=== PATIENT | male | born 1995 | race Caucasian/White ===

== ENCOUNTER 2021-10-31 12:34 | Outpatient (CLI) | payer OTHER, SELFPAY ==
[2021-10-31 13:41] LABS: Anion Gap 7 mmol/L (8-16); Blood Urea Nitrogen 12 mg/dL (9-20); Calcium 9.9 mg/dL (8.4-10.2); Carbon Dioxide 29 mmol/L (22-30); Chloride 104 mmol/L (98-107); Estimated Glomerular Filt Rate > 60; Glucose 91 mg/dL (65-110); Magnesium 2.1 mg/dL (1.6-2.3); Potassium 4.2 mmol/L (3.4-5.0); Sodium 140 mmol/L (137-145)
== END 2021-10-31 12:35 | disposition home or self-care (01) ==
PROVIDERS: Visit Provider Internal Medicine Cardiovascular Disease
DX: R07.89 Other chest pain (principal); R00.2 Palpitations; F41.9 Anxiety disorder, unspecified
CPT/HCPCS: 36415; 80048; 83735; 84439; 84443

== ENCOUNTER 2025-02-21 11:25 | Emergency (ER) | payer BC, OTHER, SELFPAY ==
--- NOTE | ~2025-02-21 | XR_ITS ---
HISTORY: pain COMPARISON: None TECHNIQUE: 2 views of the RIGHT great toe were performed. FINDINGS: Acute, partially comminuted fracture of the proximal margin of the distal phalanx of the right great toe are identified, with the fracture line extending into the articular surface on the lateral margin . Joint spaces are otherwise preserved and alignment is maintained. Soft tissue swelling, without radiopaque foreign body or significant calcification. Age-appropriate mineralization. IMPRESSION: Acute partially comminuted fracture of the proximal margin of the distal phalanx of the right great toe with extension into the articular surface along the lateral margin. Reviewed, dictated and finalized at location A.
--- OUTSIDE RECORDS SUMMARY | 2025-02-21 11:28 | XMS_ITS | Referral Summary ---
Author Organization [facility] Address [address] [place] [id number] Care Team Providers Care Computed Tomography Technologist Name Role Phone Javier Flynn MD Primary Care Provider +1- [phone] Encounters Date Type Department Care Team Description 02/17/2025 1:29 PM CDT - 02/17/2025 11:59 PM CDT Hospital Encounter [facility] Radiology at [facility] [address] [place] [address] Chronic pain of right ankle Discharge Disposition: Discharge to home or self care 02/17/2025 1:15 PM CDT Office Visit [facility] [address] [facility] 1st [address] [place] [address] Cuca Mcintosh NP Osteochondral defect of talus (Primary Dx); Right ankle pain, unspecified chronicity 02/11/2025 Orders Only [facility] [address] [facility] 2nd Floor [address] [place] [address] Alka Weiss RN Chronic pain of right ankle (Primary Dx) from Last 3 Months Allergies No known active allergies Medications No known medications Active Problems Problem Noted Date Diagnosed Date Palpitations 09/15/2021 Chest discomfort 09/15/2021 Lipid screening 09/15/2021 Anxiety 09/15/2021 Osteochondral lesion of talar dome 08/09/2020 Overview (08/09/2020): Added automatically from request for surgery [id number] Social History Tobacco Use Types Packs/Day Years Used Date Smoking Tobacco: Never Smokeless Tobacco: Never Tobacco Cessation:Counseling Given: Not Answered Alcohol Use Standard Drinks/Week Comments Yes 4 (1 standard drink = 0.6 oz pur e alcohol) social Sex and Gender Information Value Date Recorded Sex Assigned at Not on file Legal Sex Male 8:36 AM CDT Gender Identity Not on file Sexual Orientation Not on file 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 Not on file Not on file Last Filed Vital Signs Vital Sign Reading Time Taken Comments Blood Pressure 118/72 10/31/2021 11:58 AM POST ANESTHESIA NURSE Pulse 78 10/31/2021 11:58 AM POST ANESTHESIA NURSE Temperature 37 C (98.6 F) 09/16/2020 12:19 PM POST ANESTHESIA NURSE Respiratory Rate 15 09/15/2021 11:17 AM POST ANESTHESIA NURSE Oxygen Saturation 96% 10/31/2021 11:58 AM POST ANESTHESIA NURSE Inhaled Oxygen Concentration - - Weight 90.7 kg (200 lb) 01/02/2023 11:51 AM CDT Height 180.3 cm (5' 11) 01/02/2023 11:51 AM CDT Body Mass Index 27.89 01/02/2023 11:51 AM CDT Plan of Treatment Not on file Procedures Procedure Name Priority Date/Time Associated Diagnosis Comments XR ANKLE RIGHT 3 OR MORE VIEWS Schedule Routine, Read Routine (OP Routine) 02/17/2025 1:32 PM CDT Chronic pain of right ankle from Last 3 Months Results * XR Ankle Right 3 or More Views (02/17/2025 1:32 PM CDT) Anatomical Region Laterality Modality Lower Extremities, Ankle Right Compute d Radiography 02/17/2025 1:50 PM CDT Impressions 02/17/2025 1:50 PM CDT 1. Unchanged, nondisplaced right medial talar dome osteochondral lesion within in situ fragment Electronically signed by: Jace Goodson MD Narrative 02/17/2025 1:50 PM CDT EXAMINATION: XR ANKLE RIGHT 3 OR MORE VIEWS HISTORY: Right ankle pain FINDINGS: 3 view weightbearing examination of the right ankle is compared to 01/02/2023. Unchanged, nondisplaced osteochondral lesion of the medial talar dome with in situ fragment. No displaced loose body. There is no acute displaced fracture. Alignment is normal, without widening of the ankle mortise or syndesmosis. Joint spaces are normal. Procedure Note Mary Goodson MD - 02/17/2025 EXAMINATION: XR ANKLE RIGHT 3 OR MORE VIEWS HISTORY: Right ankle pain FINDINGS: 3 view weightbearing examination of the right ankle is compared to 01/02/2023. Unchanged, nondisplaced osteochondral lesion of the medial talar dome with in situ fragment. No displaced loose body. There is no acute displaced fracture. Alignment is normal, without widening of the ankle mortise or syndesmosis. Joint spaces are normal. IMPRESSION: 1. Unchanged, nondisplaced right medial talar dome osteochondral lesion within in situ fragment Electronically signed by: Jace Goodson MD Cuca Mcintosh ARTIFICIAL BREEDING DISTRIBUTOR IMG XR PROCEDURES Final Result from Last 3 Months Insurance [facility] CLAIMS [facility] Address: [address] [place] [address] [facility] Care Teams Computed Tomography Technologist Relationship Specialty Start Date End Date Javier Flynn MD [address] [place] [address] PCP - General Family Medicine 06/03/20
--- OUTSIDE RECORDS SUMMARY | 2025-02-21 11:28 | XMS_ITS | Clinical Summary ---
Author Organization [facility] Address [address] [place] [id number] Care Team Providers Care Community Worker Name Role Phone Javier Flynn MD Primary Care Provider +1- [phone] Allergies No known active allergies Medications No known medications Active Problems Problem Noted Date Diagnosed Date Palpitations 09/15/2021 Chest discomfort 09/15/2021 Lipid screening 09/15/2021 Anxiety 09/15/2021 Osteochondral lesion of talar dome 08/09/2020 Overview (08/09/2020): Added automatically from request for surgery [id number] Encounters Date Type Department Care Team Description 02/17/2025 1:29 PM CDT - 02/17/2025 11:59 PM CDT Hospital Encounter [facility] Radiology at [facility] [address] [place] [address] Chronic pain of right ankle Discharge Disposition: Discharge to home or self care 02/17/2025 1:15 PM CDT Office Visit [facility] Orthopaedic Surgery [address] [facility] 1st Floor [address] [place] [address] Cuca Mcintosh NP Osteochondral defect of talus (Primary Dx); Right ankle pain, unspecified chronicity 02/11/2025 Orders Only [facility] Orthopaedic Surgery [address] [facility] 2[address] [place] [address] Alka Weiss RN Chronic pain of right ankle (Primary Dx) from Last 3 Months Surgical History Surgery Date Site/Laterality Comments RHINOPLASTY WISDOM TOOTH EXTRACTION NASAL SEPTUM SURGERY Medical History Medical History Date Comments Anxiety Depression Arthritis Osteochondral lesion of talar dome 08/09/2020 Added automatically from request for surgery [id number] Chest pain Family History Medical History Relation Name Comments Hypertension Father No Known Problems Mother No Known Problems Sister Anesthesia problems Neg Hx Relation Name Status Comments Father Alive Mother Sister Social History Tobacco Use Types Packs/Day Years [...] 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 Not on file Not on file Obstetrics History Last Filed Vital Signs Vital Sign Reading Time Taken Comments Blood Pressure 118/72 10/31/2021 11:58 AM SUPERVISOR SH[employer] MAINTENANCE SERVICES Pulse 78 10/31/2021 11:58 AM SUPERVISOR [employer] MAINTENANCE SERVICES Temperature 37 C (98.6 F) 09/16/2020 12:19 PM SUPERVISOR [employer] MAINTENANCE SERVICES Respiratory Rate 15 09/15/2021 11:17 AM SUPERVISOR [employer] MAINTENANCE SERVICES Oxygen Saturation 96% 10/31/2021 11:58 AM SUPERVISOR SHIP MAINTENANCE SERVICES Inhaled Oxygen Concentration - - Weight 90.7 kg (200 lb) 01/02/2023 11:51 AM CDT Height 180.3 cm (5' 11) 01/02/2023 11:51 AM CDT Body Mass Index 27.89 01/02/2023 11:51 AM CDT Plan of Treatment Health Maintenance Due Date Last Done Comments Depression Screening 1997 Hepatitis C Screening 1997 Regular Well Visit/Exam 18-64 2015 Covid-19 Vaccine ( season) 2024 09/19/2021 Influenza Vaccine (Season Ended) 2025 08/13/2018, 07/22/2017, 12/24/2016 DTaP/Tdap/Td Vaccine (8 - Td or Tdap) 06/12/2026 06/12/2016, 05/15/2012, 05/05/2003, Additional history exists Varicella Vaccines Completed 07/30/2016, 06/12/2016 Hepatitis B Screening Completed 03/05/2017 , 07/30/2016, 06/12/2016, Additional history exists HPV Vaccines Aged Out No longer eligi ble based on patient's age to complete this topic Pneumococcal vaccine <65 Aged Out No longer eligible based on patient's age to complete this topic Procedures Procedure Name Priority Date/Time Associated Diagnosis [...] Electronically signed by: Jace Goodson MD Cuca Scrogin IT MANAGER IMG XR PROCEDURES Final Result from Last 3 Months Insurance [facility] CLAIM[facility] CLAIMS [facility] [id number] [facility] Address: [address] [place] [phone] Care Teams Community Worker Relationship Specialty Start Date End Date Javier Flynn MD [address] [place] [address] PCP - General Family Medicine 06/03/20
--- OUTSIDE RECORDS SUMMARY | 2025-02-21 11:28 | XMS_ITS | Data Portability ---
Author Organization [facility], [address] Neurology ([place]) Address [address] [place] [address] Care Team Providers Care Meat Carver Name Role Phone JAVIER GALLARDO Primary Care Provider Assessment Encounter Date Assessment Date Assessment LastModified by Organization Details LastModified Time 12/31/2024 12/31/2024 I recommend to start Naproxen and Flexeril for lumbar and neck pain that are likely due to muscle spasms/stiffness . If no improvement, consider imaging and/or PT. Case entered to call pt in 1 week to check on sx. Pt verbalizes understanding of treatment plan. Not available 12/31/2024 21:05:47 01/22/2025 01/22/2025 I recommend to restart Diclofenac for inflammation and go back to [facility] for further eval. Pt verbalizes understanding of treatment plan. Not available 01/22/2025 14:42:52 Plan of Treatment Reminders Order Date Submit Date Provider Last Modified By Organization Details Last Modified Time Details Appointments Establish ed Patient 40.EST 2024 03:40P Codie Raymundo Not available Not available Not available Lab None recorded. Referral orthopedi c surgeon referral - Please refer to [facility]. 2024 025 [email or web address] Cuca Mcintosh, [address] [place], [address], 02/17/2025 17:07:43 psychiatr ist referral 2024 025 [facility] ([facility]), [address] [place] [address], [address], 12/17/2024 10:35:24 Procedures None recorded. Surgeries None recorded. Imaging None recorded. Medication Orders diclofena c sodium 75 mg tablet,de layed release [address] [id number], [address] [place] [address], [address], 01/25/2025 16:54:17 cyclobenz aprine 10 mg tablet 2024 025 [facility][id number], [address] [place] [address], [address], 12/31/2024 17:39:10 naproxen 500 mg tablet 2024 025 [facility][id number], [address] [place] [address], [address], 01/22/2025 14:22:15 Patient TargetsNo targets recorded. Patient Instructions Encounter Date Encounter Id Patient Instructions Last Modified By Organization Details Last Modified Time 11/16/2024 [id number] - ADDENDUM on 11/24/24 After receiving additional paperwork from the [facility] [employer] of long-term, I spoke with patient again regarding his request for breaks during work while he is on this modified assignment of sitting at a desk during his 8 hour shift. I initially wanted him assistance in explaining to his employer why pako needed to move to an alternative environment during his 10 min breaks every hour as this was asked on the paperwork. While on the phone, he also mentioned that in addition to his anxiety, pt states that he also has hx of scoliosis dx on xray in 2019 which causes him discomfort during long periods of sitting. He states that in order to avoid pain and stiffness in his back, he needs to get up and move around. Current tx otherwise for his scoliosis involves regular visits with the chiropractor. We again discussed that patient needs to make appt with psychiatry and he does have their number to do so. [email or web address] Not available 11/24/2024 18:08:04 Reason for Referral Psychiatrist Referral for Ac big sandy stress disorder Referring Physician: Meron Kirk, Family Medicine, Encounter Date: 11/16/2024 Orthopedic Surgeon Referral for Ankle pain Please refer to Ortho at [facility]. Referring Physician: Raquel Raymundo Family Medicine, Encounter Date: 01/22/2025 Results Created Date Observation Date Name Description Value Unit Range Abnormal Flag Note LastModifiedBy Organization Detail LastModifiedTime 01/12/2001/11/2025 XR, lumba r spine , 2 view No observ ation record ed. [facility] [address], [place], [address], 01/11/2025 13:53:38 01/12/2001/11/2025 XR, cervi ernie spine , 2 or 3 view No observ ation record ed. [facility] [address], [place], [address], 01/11/2025 13:53:38 Result Notes None recorded. Problems Name Problem SNOMED Code Status Onset Date Resolution Date Notes Provider Name and Address Organization Details Recorded Time Chest discomfo rt 163613143 Completed 11/15/2024fall: nrml EKG, Trop, [facility], 24 holter. [facility] Cardiolo gy did StressTr eadmill : nmL. Meron Kirk, SUNDAY [address] [place] [address], [address], [facility] 5 15:26:19 Generali zed anxiety disorder 13341631 [facility] Javier Gallardo MD [address] [place] [address], [address], [facility] 5 16:10:28 Low back pain 648830573 Active tx Meloxica m and PT. 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 [facility] performe d arthrosc opy with extensiv e debridem ent . PRN Diclofen ac Rx appears helpful at phone check-in . Plan annual BMP to eval kidney funciton while on this med. -s/p eval by ortho 01/02/23 where recommen ded compress ion stocking s and new othotics f/u if pain/mec hanical sx. May continue normal activity . 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 Javier Gallardo MD [address] [place] [address], [address], [facility] 5 16:17:08 Pain of right shoulder region Completed after a fall. nrml exam; tx NSAID: PT if no improvem ent. - prior nmL XR 09/2018 Javier Gallardo MD [address] [facility], [facility] [place], [address], [facility] 5 16:17:51 Right cardiac ventricu lar dilatati on 637532505 Active dx on echo '15 (for SOB). Cardiolo gy eval advised avoid muscle building suppleme nts (sx's improved while off those, and echo nmL ) Javier Gallardo MD [address] , [facility] [place], [address], [facility] 5 16:09:58 Scoliosi s deformit y of spine 163052773 Active 2024 [employer] ; 09/10/19 Xray-->l eftward scoliosi s centered at thoracol umbar junction 18 degrees Meron Kirk APRN [address] [facility], [facility] [place], [address], [facility] 5 15:32:30 Stress fracture of right tibia [id number] [id number] Completed 11/15/2024 Grade 2 on SPECT scan 04/2018. Merno Kirk APRN [address] [facility], [facility] [place], [address], [facility] 5 15:38:53 History of procedur e 822381718 Completed normal sleep study 11/2017 in records Javier Gallardo MD [address] [facility], [facility] [place], [address], [facility] 5 16:14:53 Acute stress disorder 66125405 Active 2024 Meron Kirk APRN [address] [facility], [facility] [place], [address], [facility] 5 17:03:24 Chronic neck pain 51611974692 07 Active 2024 Raquel Raymundo PA-C [address] [facility], [facility] [place], [address], [facility] 17:38:19 Notes:Some problems listed i n Document: #[id number] could not be added to this patient's chart. Please review this document and add these problems to the patient's chart manually as needed. Problem Notes None recorded. Procedures Surgical History Date Name Laterality Status Provider Name and Address Organization Details Recorded Time operation on nose completed Meron Kirk APRN [address] [place] [address], [phone], [facility] 11/15/2024 15:39:48 arthroscopy of ankle completed Meron Kirk, RECREATION SUPERINTENDENT [address] [place] [address], [address], [facility] 11/15/2024 15:40:09 Imaging Results Imaging Date Name Status LastModified by Organiz ation Details LastModified Time 01/11/2025 XR, lumbar spine, 2 view completed [facility] [address] [place], [address], 01/11/2025 13:53:38 01/11/2025 XR, cervical spine, 2 or 3 view completed [facility] [address] [place], [address], 01/11/2025 13:53:38 Procedure Notes None recorded. Medical Equipment None Reported. Allergies No known drug allergies Medications Name Sig Start Date Stop Date Status Note LastModified by Organization Details LastModified Time cyclobenzap rine 10 mg tablet TAKE 1 TABLET BY MOUTH EVERYDAY AT BEDTIME active Not Available Not Available No t Available diclofenac sodium 75 mg tablet,angela yed release Take 1 tablet twice a day by oral route as needed. 2024 active Not Available Not Available Not Avai lable naproxen 500 mg tablet TAKE 1 TABLET BY MOUTH TWICE A DAY WITH MEALS 01/22 completed Not Available Not Available Not Available Vitals Date Recorded Body weight Body temperature Heart rate Oxygen saturation Oxygen saturation in Arterial blood by Pulse oximetry Systolic blood pressure Diastolic blood pressure Provider Name and Address Organization Details Last Updated DateTime 831855. 47 g 98.5 [degF] 84 /min 98 % 98 % 116 mm[Hg] 88 mm[Hg] [facility] 5 16:08:11 Date Recorded Body weight Body temperature Heart rate Oxygen saturation Oxygen saturation in Arterial blood by Pulse oximetry Systolic blood pressure Diastolic blood pressure Provider Name and Address Organization Details Last Updated DateTime 5 403137 g 97.3 [degF] 68 /min 96 % 96 % 130 mm[Hg] 94 mm[Hg] [facility] 5 17:26:32 Date Recorded Body weight Body temperature Heart rate Oxygen saturation Oxygen saturation in Arterial blood by Pulse oximetry Systolic blood pressure Diastolic blood pressure Provider Name and Address Organization Details Last Updated DateTime 5 96288.1 7 g 97.3 [degF] 75 /min 97 % 97 % 130 mm[Hg] 82 mm[Hg] [facility] 5 14:10:24 Social History None recorded. Functional Status None recorded. Mental Status None recorded. Family History Relationship Description Onset Age of this Age Resolved Age Notes LastModified by Organization Details LastModified Time Father Hypertensive disorder [email or web address] Not available 2024 15:40:20 Medical History No medical history recorded. Immunizations Vaccine Type Date Status Note Provider Nam e and Address Organization Details Recorded Time Hib, unspecified formulation 8 completed [facility] 11/16/2024 16:08:29 Hib, unspecified formulation 0 completed [facility] 11/16/2024 16:08:29 Hib-Hep B 8 completed D[facility] 11/16/2024 16:08:29 HPV9 6 completed [facility] 11/16/2024 16:08:29 IPV 0 completed [facility] 11/16/2024 16:08:29 IPV 3 completed [facility] 11/16/2024 16:08:29 IPV 6 completed [facility] 11/16/2024 16:08:29 MMR 0 completed [facility] 11/16/2024 16:08:29 MMR 3 completed [facility] 11/16/2024 16:08:29 MMR 6 completed [facility] 11/16/2024 16:08:29 COVID-19 vaccine, vector-nr, rS-Ad26, PF, 0.5 mL 1 completed [facility] 11/16/2024 16:08:29 Tdap 2 completed [facility] 11/16/2024 16:08:29 Tdap 6 completed [facility] 11/16/2024 16:08:29 varicella 6 completed [facility] 11/16/2024 16:08:29 varicella 6 completed [facility] Lindsay [facility] 11/16/2024 16:08:29 OPV 8 completed Dinajoshua Lindsay [facility] 11/16/2024 16:08:29 OPV 7 completed [facility] Lindsay [facility] 11/16/2024 16:08:29 Anthrax, pre-exposure prophylaxis, post-exposure prophylaxis 8 completed [facility] Lindsay [facility] 11/16/2024 16:08:29 DTP-Hib 7 completed [facility] Lindsay [facility] 11/16/2024 16:08:29 Novel [id number] 9 completed [facility] 11/16/2024 16:08:29 Hep B, adolescent or pediatric 8 completed Dina Neftali null, [facility] 11/16/2024 16:08:29 Hep B, adolescent or pediatric 7 completed Dina Neftali null, [facility] 11/16/2024 16:08:29 Hep B, adolescent or pediatric 7 completed Dina Neftali null, [facility] 11/16/2024 16:08:29 typhoid, ViCPs 8 completed Dina Neftali null, [facility] 11/16/2024 16:08:30 meningococcal MCV4P 5 completed Dina Neftali null, [facility] 11/16/2024 16:08:30 meningococcal MCV4P 2 completed [facility]/16/2024 16:08:30 meningococcal MCV4P 6 completed Dina Neftali null, [facility] 11/16/2024 16:08:30 DTaP 8 completed [facility] 11/16/2024 16:08:30 DTaP 8 completed Dina Neftali null, [facility] 11/16/2024 16:08:30 DTaP 0 completed [facility] 11/16/2024 16:08:30 DTaP 3 completed Dina Neftali null, [facility] 11/16/2024 16:08:30 Adenovirus types 4 and 7 6 completed Dina Neftali null, [facility] 11/16/2024 16:08:30 Influenza, split virus, quadrivalent, PF 7 completed Dina Neftali null, [facility] 11/16/2024 16:08:30 Influenza, split virus, quadrivalent, PF 8 completed Dina Neftali null, [facility] 11/16/2024 16:08:30 [facility] 16:08:30 Past Encounters Encounter ID Performer Location Encounter Start Date Encounter Closed Date Diagnosis/Indication Diagnosis SNOMED-CT Code Diagnosis ICD10 Code Diagnosis Note [id number] Meron Kirk APRN [facility] ([place]) [address] [place] [address] 11/16/2024 16:00:00 11/16/2024 16:50:20 Acute stress disorder 34965669 F43.0 Situationa l stress related to an incident at work. Pt declines treatment for stress/anx iety with medication . He would like a note written for work stating he needs to get up from his desk hourly and move around. We discussed that due to his stress/anx iety, coupled with his history of anxiety and PTSD, it would helpful to see a psychiatri st, so will place that referral. He was given a note for work for one month. After that one month, further work accomodati ons related to his mental health will need to come from psychiatry and he was made aware of this. History of musculoskeletal disease 024993227 Z87.39 [id number] Raquel Raymundo PA-C [facility] ([place]) [address] [place] [address] 12/31/2024 17:22:46 12/31/2024 17:54:54 Chronic neck pain 8577818233 107 M54.2 G89.29 Low back pain 775224252 M54.50 [id number] Raquel Raymundo PA-C [facility]) [address] [place] [address] 01/22/2025 14:01:53 01/22/2025 14:43:42 Ankle pain 737560625 M25.571 Health Concerns Section Related Observation LastModified by Organization Detai ls LastModified Time None Recorded Concern Status LastModified by Organization Details LastModified Time None Recorded Advance Directives Directive None Recorded Payers Insurance Date Sequence Insurance Name Policy Number Policy Rosenberg Covered Member ID Rosenberg Member ID Guarantor Name 02/20/2025 1 [employer] BLUE CROSS - FEP [id number] Wali Mason [id number] Wali Mason 02/21/2025 2 [facility] () Wali Mason [id number] Wali Mason Notes Date Note Type Note Provider Name and Address Organization Details Recorded Time 11/16/2024 text/html Work note needed-Works at the [employer] long-term in [place]-needs a note for work that he is able to get up from sitting job to decrease back pain and stress-He is on an alternative assignment at work due to an ongoing investigation he is involved in. 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 Due to this stress, he feels he needs to get up from his job of sitting all day and move around outside the environment of his desk/computer.-Not on any medications right now. Particularly not on any anti-depressants or anti-anxiety medications. He does state he is going to start seeing a counselor, but has not yet seen one - he has an appt lined up. 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-sx are worsening lately-pt went to chiropractor which helped temporarily-takes Tylenol prn-has shooting pain in neck with movement; neck gets stiff-back pain is low and middle back-back gets stiff and also has shooting pain up back-denies numbness and tingling in legs Raquel Raymundo PA-C [address] [place] [address], [address], [facility] 01/04/2025 09:47:39 01/22/2025 text/html Wali presents today with complaint of right ankle pain-pain started after mowing a couple of days ago-history of surgery with [facility] in 2020-ankle swells off and on; getting worse in the last 6 months-previously took Diclofenac prn-[facility]pt has not seen Ortho in 2 years-pt states that swelling after working long hours KENDALL Romeo-C [address] [facility], [place], [address], [facility] 01/25/2025 16:54:41
--- OUTSIDE RECORDS SUMMARY | 2025-02-21 11:28 | XMS_ITS | Encounter Summary ---
Author Organization [facility] Healthcare Address [address] [place] [address] Care Team Providers Care Wheat Washer Name Role Phone Javier Flynn MD Primary Care Provider [phone] Encounter Details Date Type Department Care Team (Late st Contact Info) Description 06/27/2020 Telephone [facility] [address] [place] [id number] Silas Reynoso, RT Social History Tobacco Use Types Packs/Day Years Used Date Smoking Tobacco: Never Smokeless Tobacco: Never Alcohol Use Standard Drinks/Week Comments Yes 0 (1 standard drink = 0.6 oz pur e alcohol) Sex and Gender Information Value Date Recorded Sex Assigned at Not on file Legal Sex Male 8:36 AM CDT Gender Identity Not on file Sexual Orientation Not on file 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
--- OUTSIDE RECORDS SUMMARY | 2025-02-21 11:32 | XMS_ITS | Encounter Summary ---
Author Name [facility] [place] [facility] [place] Address [address] [place] [address] Care Team Providers Care Baggage Security Checker Name Role Phone EHSAN HOUSTON Primary Care Provider UnavailDAVID Phillips Unavailable Unavailable JOHNNA LEGGETT Unavailable Unavailable ZOIE SANCHEZ Unavailable Unavailab JU Velásquez Unavailable Unavailable JESICA DESOUZA Unavailable Unavailable AXEL MONTES Unavailable Unavailable JONA GEORGE Unavailable Unavailable OWEN MARQUEZ Primary Care Provider Unavailab le Insurance Providers: All historical and current Section Date Range: From patient's date of to the date document was created. This section includes the names of all active insurance providers for the patient. Insurance Provider Type of Coverage Plan Name Start of Policy Coverage End of Policy Coverage Group Number Member ID Insurance Provider's Telephone Number Policy Rosenberg's Name Patient's Relationship to Policy Rosenberg [place] PREFERRED PROVIDER ORGANIZAT ION (PPO) FEP BLUE FOCUS SELF Oct 11, 2024 131 [id number] [phone] APARNA COLE PATIENT ANTHE[place] F[place] PREFERRED PROVIDER ORGANIZAT ION (PPO) FEP BLUE FOCUS SELF Oct 11, 2024 131 [id number] [phone] APARNA COLE PATIENT AN[place] PREFERRED PROVIDER ORGANIZAT ION (PPO) FEP BLUE FOCUS SELF Oct 11, 2024 131 [id number] [phone] APARNA COLE PATIENT [place] FEP PREFERRED PROVIDER ORGANIZAT ION (PPO) FEP BLUE FOCUS SELF Oct 11, 2024 131 [id number] [phone] APARNA COLE PATIENT [employer] FEP ([id number]) PRESCRIPT ION FEPRX Oct 11, 2024 [id number] [phone] APARNA COLE PATIENT [facility] 2024 SELEC T WNR Sep 30, 2024 SELECT [id number] [phone] APARNA COLE PATIENT [facility] 2024 TRICA RE SELEC T Sep 30, 2024 SELECT [id number] 27 APARNA COLE PATIENT Selected Encounter This section includes the [place] on [place] at [place] for the Encounter. Date/Time Encounter Type Encounter Description Reason Provider Source Sep 08, 2024 11:00 AM PSYTX W PT 30 MINUTES PCMHI INDIV ICD-10-CM F41.1 Generalized anxiety disorder RAVI BARRY [facility] Encounter Template Text not used by [place] Assessments - Encounter Diagnoses This section includes the primary and secondary diagnoses documented for the Encounter. Date/Time Primary/Secondary Diagnosis Diagnosis Name Provider Source Sep 08, 2024 05:15 PM PRIMARY Generalized anxiety disorder RAVI BARRY [facility] Sep 08, 2024 05:15 PM SECONDARY Major depressive disorder, recurrent, moderate RAVI BARRY [facility] Plan of Treatment: Future Appointments (+ 6 months) and Future Tests (+/- 45 days) The Plan of Treatment section includes future care activities for the patient from all [place] treatmentfacilities. This section includes future appointments and future orders which are active, pending or scheduled. Future Appointments This section includes appointments that were scheduled to occur 6 months from the date of the Encounter, up to a maximum of 20 appointments. The data comes from all [place] treatment facilities. Appointment Date/Time Appointment Type Appointme nt Facility Name Sep 29, 2024 10:00 AM AMBULATORY - MEDICINE [facility] Oct 01, 2024 10:00 AM AMBULATORY - PSYCHIATRY [facility] Dec 09, 2024 09:00 AM AMBULATORY - PSYCHIATRY [facility] Dec 16, 2024 09:00 AM AMBULATORY - PSYCHIATRY [facility] Jan 06, 2025 09:00 AM AMBULATORY - PS[facility]IATRY [facility] Jan 13, 2025 09:00 AM AMBULATORY - PS[facility]IATRY [facility] Jan 20, 2025 09:00 AM AMBULATORY - PS[facility]CHIATRY [facility] Jan 27, 2025 09:00 AM AMBULATORY - PS[facility]IATRY [facility] February 10, 2025 09:00 AM AMBULATORY - PS[facility]IATRY [facility] February 17, 2025 09:00 AM AMBULATORY - PS[facility]IATRY [facility] February 24, 2025 09:00 AM AMBULATORY - PS[facility]CHIATRY [facility] Mar 09, 2025 02:30 PM AMBULATORY - MEDICINE [facility] Social History: Smoking Status (Most current) and Tobacco Use (All prior to encounter date) This section includes the most current, and the historical, smoking and tobacco- related health factors from the [place] facility where the Encounter took place. Current Smoking Status This section includes the most current smoking, or tobacco-related health factor, from the [place] facility where the Encounter took place. Date/Time Current Smoking Status Comment Amol chavez Mar 10, 2024 03:00 PM VA-TOBACCO NEVER USED [facility] Tobacco Use History This section includes a history of the smoking, or tobacco-related health factors, that were collected on or before the date of the Encounter. The data comes from the [place] facility where the Encounter took place. Date/Time Smoking Status/Tobacco Use Comment F acility Nov 05, 2022 03:00 PM VA-TOBACCO NEVER USED [facility] Jul 13, 2020 11:30 AM VA-TOBACCO NEVER USED [facility] Jul 07, 2019 11:19 AM VA-TOBACCO NEVER USED [facility] Encounter Notes: All associated encounter notes This section contains the clinical notes associated to the Encounter. Date/Time Encounter Note(s) Provider Source Sep 08, 2024 11:04 AM PSYCHOLOGY OUTPATI ENT NOTE: LOCAL TITLE: PRIMARY CARE PSYCHOLOGY NOTE [facility] STANDARD TITLE: PSYCHOLOGY OUTPATIENT NOTE DATE OF NOTE: SEP 08, 2024@11:04 ENTRY DATE: SEP 08, 2024@11:04:46 AUTHOR: RAVI BARRY EXP COSIGNER: URGENCY: STATUS: COMPLETED Follow-up Template NAME: KELVIN COLE DATE OF : May TIME SPENT WITH PATIENT: 30 minutes DIAGNOSIS BEING TREATED: IKE; MDD, Recurrent, Mod; R/O Social Phobia CPT Code: 26232 NATURE OF ENCOUNTER: follow up visit SESSION FORMAT: [ ] [id number]-[id number] [X] Video Telehealth [ ]Phone Confirmed [place]'s location and phone number for virtual appointment. [X]Yes [ ]N/A NOTE: Use separate CVT template, if appropriate SESSION NUMBER: 2 INTERVENTION/TREATMENT PROVIDED [X] Rapport [place] [X] Shared decision-making regarding goals of care [X] Supportive Psychotherapy [X] Solution-Focused Psychotherapy [ ] Insight Oriented Psychotherapy [ ] Cognitive Behavioral Therapy Skills [ ] Acceptance and Commitment Therapy Skills [ ] Interpersonal Therapy Skills [ ] Motivational Interviewing [ ] Culture-based Interventions [ ] Health Psychology Interventions [ ] Evidence Based Psychotherapy: [ ] Psychosocial Interventions [ ] Other: Description of Interventions Provided by Therapist: Motivational Interviewing Behavioral Activation RELEVANT HISTORICAL DEVELOPMENTS SINCE LAST CONTACT: NOTE: Describe relevant historical developments below Engaged eugene in [place] to define SMART goal. Vet indicated he never really did socialize before and wants to work on this. Currently gets out a couple times a week. He likes to go bowling 2x a month and to the gym 2-3x a week. Antoinettet reported some problems with sleep. We reviewed his STOP BANG, and he reported he does wake up gasping for air, and choking. Vet reported his insomnia is pretty bad. Will defer to Dr. Marquez as eugene might benefit from a sleep study. Agreed increase social networking as foundational/ultimate goal. ASSESSMENT MEASURES USED: [ ] Measure in Mental Health Tourism Radio Presenter. See accompanying Mental Health Diagnostic Study for details. [X] Measure(s) sent via [facility], electronically following visit. agrees to asynchronous electronic administration; when returned, measure results will be included in a note or addendum in CPRS [ ] Other Measures: Measure: Score: Measure: Score: [ ] N/A: Not administered this session Date/Score of last administration: [ ]Functional/Symptom Assessment: Symptom(s)/Function(s) tracked by Changes in frequency, intensity or duration since last visit: Collaboratively discussed outcomes related to assessment and treatment progress and measures will continue to be monitored. MEASURABLE TREATMENT GOALS FOR THIS EPISODE OF CARE: 1. GOAL/OBJECTIVES: increase socialization and engaging family and friends. PROGRESS TOWARDS GOAL: goal established this day. 2. GOAL/OBJECTIVES: Transfer to a Skills Training group PROGRESS TOWARDS GOAL: consult completed this day. 3. GOAL/OBJECTIVES: PROGRESS TOWARDS GOAL: RESPONSE TO INTERVENTIONS: Veterans participation/engagement: [X]The participated actively in the current interventions. [ ]Other: The continues to consent to the current plan of care: Yes Comments: RISK ASSESSMENT: [X] NO CHANGE IN RISK FACTORS Related to Suicide or Homicide. did not report any current suicidal/homicidal ideation, plan, or intent. did not appear to be at imminent risk for suicide or homicide at this time and is considered sustainable at the current level of care. [ ] NEW/UPDATED RISK ASSESSMENT: -RELEVANT RISK AND PROTECTIVE FACTORS: -IDEATION: [ ] [place] denied current suicidal or homicidal ideation, plan, or intent. [ ] Suicidal or homicidal ideation/behavior WAS identified: -CLINICAL JUDGMENT AND DISPOSITION: [ ] In consideration of relevant risk and protective factors, the [place] did NOT appear to be at imminent risk for suicide or homicide at this time and IS sustainable at the current level of care. 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 Vet also to use tracking sheet. Provider to complete consult for EBP groups. COLLABORATIVE RECOMMENDATIONS/PLAN: Collaboratively discussed outcomes related to assessment and treatment progress. Based on this discussion: [ ] No changes to plan of care. expressed agreement with therapy tasks and [id number] plan. [X] Using shared decision making, [place] and provider agreed to the following change in plan: submit consult for groups. Educated [place] on the risks, benefits, and possible complications related to changes to treatment plan. agreed to proceed with the change. [X]YES [ ]NO /melecio/ Ravi Barry Psy.D. Staff Psychologist Signed: 09/08/2024 17:16 RAVI BARRY [facility]
--- OUTSIDE RECORDS SUMMARY | 2025-02-21 11:32 | XMS_ITS | Encounter Summary ---
Author Name [facility] [place] [facility] [place] [facility] [place] Address [address] [place] [address] Care Team Providers Care Progressive Care Unit Registered Nurse Name Role Phone EHSAN HOUSTON Primary Care Provider UnavailDAVID Phillips Unavailable Unavailable JOHNNA LEGGETT Unavailable Unavailable ZOIE SANCHEZ Unavailable Unavailab JU Velásquez Unavailable Unavailable JESICA DESOUZA Unavailable Unavailable AXEL MONTES Unavailable Unavailable JONA GEORGE Unavailable Unavailable OWEN VILLAVICENCIO Primary Care Provider Unavailab le Insurance Providers: [...] BLUE FOCUS SELF Oct 11, 2024 131 [id number] [phone] APARNA COLE PATIENT ANTHEM [employer] FEP PREFERRED PROVIDER ORGANIZAT ION (PPO) FEP BLUE FOCUS SELF Oct 11, 2024 131 [id number] [phone] APARNA COLE PATIENT AN[place] F[place] PREFERRED PROVIDER ORGANIZAT ION (PPO) FEP BLUE FOCUS SELF Oct 11, 2024 131 [id number] [phone] APARNA COLE PATIENT [employer] FEP PREFERRED PROVIDER ORGANIZAT ION (PPO) FEP BLUE FOCUS SELF Oct 11, 2024 131 [id number] [phone] APARNA COLE PATIENT [employer] FEP ([id number]) PRESCRIPT ION FEPRX Oct 11, 2024 [id number] [phone] APARNA COLE PATIENT [facility] 2024 SELEC T WNR Sep 30, 2024 SELECT [id number] APARNA COLE PATIENT [facility] 2024 TRICA RE SELEC T Sep 30, 2024 SELECT [id number] 27 APARNA COLE PATIENT Selected Encounter This section includes the information on [place] at [place] for the Encounter. Date/Time Encounter Type Encounter Description Reason Provider Source Sep 29, 2024 10:00 AM PSYTX W PT 30 MINUTES PCMHI INDIV ICD-10-CM F41.1 Generalized anxiety disorder RAVI BARRY [facility] Encounter Template Text not used by [place] Assessments - Encounter Diagnoses This section includes the primary and secondary diagnoses documented for the Encounter. Date/Time Primary/Secondary Diagnosis Diagnosis Name Provider Source Sep 29, 2024 02:17 PM PRIMARY Generalized anxiety disorder RAVI BARRY [facility] Sep 29, 2024 02:17 PM SECONDARY Major depressive disorder, recurrent, moderate RAVI BARRY [facility] Plan of Treatment: Future Appointments (+ 6 months) and Future Tests (+/- 45 days) The Plan of Treatment section includes future care activities for the patient from all [place] treatmentfacilities. This section includes future appointments and future orders which are active, pending or scheduled. Future Appointments This section includes appointments that were scheduled to occur 6 months from the date of the Encounter, up to a maximum of 20 appointments. The data comes from all [place] treatment facilities. Appointment Date/Time Appointment Type Appointme nt Facility Name Oct 01, 2024 10:00 AM AMBULATORY - PSYCHIATRY [facility] Dec 09, 2024 09:00 AM AMBULATORY - PSYCHIATRY [facility] Dec 16, 2024 09:00 AM AMBULATORY - PSYCHIATRY [facility] Jan 06, 2025 09:00 AM AMBULATORY - [facility]RY [facility] Jan 13, 2025 09:00 AM AMBULATORY - [facility]RY [facility] Jan 20, 2025 09:00 AM AMBULATORY - PS[facility]ATRY [facility] Jan 27, 2025 09:00 AM AMBULATORY - PS[facility]ATRY [facility] February 10, 2025 09:00 AM AMBULATORY - PS[facility]ATRY [facility] February 17, 2025 09:00 AM AMBULATORY - PS[facility]ATRY [facility] February 24, 2025 09:00 AM AMBULATORY - PS[facility]ATRY [facility] Mar 09, 2025 02:30 PM AMBULATORY - MEDICINE [facility] Social History: Smoking Status (Most current) and Tobacco Use (All prior to encounter date) This section includes the most current, and the historical, smoking and tobacco- related health factors from the [place] facility where the Encounter took place. Current Smoking Status This section includes the most current smoking, or tobacco-related health factor, from the [place] facility where the Encounter took place. Date/Time Current Smoking Status Comment Amol chavez Mar 10, 2024 03:00 PM VA-TOBACCO NEVER USED [facility] Tobacco Use History This section includes a history of the smoking, or tobacco-related health factors, that were collected on or before the date of the Encounter. The data comes from the [place] facility where the Encounter took place. Date/Time Smoking Status/Tobacco Use Comment Bhargavi good Nov 05, 2022 03:00 PM VA-TOBACCO NEVER USED [facility] Jul 13, 2020 11:30 AM VA-TOBACCO NEVER USED [facility] Jul 07, 2019 11:19 AM VA-TOBACCO NEVER USED [facility] Encounter Notes: All associated encounter notes This section contains the clinical notes associated to the Encounter. Date/Time Encounter Note(s) Provider Source Sep 29, 2024 10:06 AM PSYCHOLOGY OUTPATI ENT NOTE: LOCAL TITLE: PRIMARY CARE PSYCHOLOGY NOTE [facility] STANDARD TITLE: PSYCHOLOGY OUTPATIENT NOTE DATE OF NOTE: SEP 29, 2024@10:06 ENTRY DATE: SEP 29, 2024@10:06:14 AUTHOR: RAVI BARRY COSIGNER: URGENCY: STATUS: COMPLETED Follow-up Template NAME: KELVIN COLE DATE OF : May TIME SPENT WITH PATIENT: 30 minutes DIAGNOSIS BEING TREATED: IKE; MDD, Recurrent, Mod; R/O Social Phobia CPT Code: 08702 NATURE OF ENCOUNTER: follow up visit SESSION FORMAT: [ ] [id number] [X] Video Telehealth [ ]Phone Confirmed [place]'s location and phone number for virtual appointment. [X]Yes [ ]N/A NOTE: Use separate CVT template, if appropriate SESSION NUMBER: 3 INTERVENTION/TREATMENT PROVIDED [X] [place]ort [place] [X] Shared [...] CONTACT: NOTE: Describe relevant historical developments below Eugene reported not having a lot of free time working 16 hours shifts, with 2 day's off. Therefore, the only thing he's been able to add to his routine is going to the gym 3-4 days a week. Which he reported has made him feel better. Discussed meds in depth again. He has fears of being a zombie and feeling tired. Eugene feels staying busy helps, especially since I'm not close to my family anymore. Eugene was unable to identify any particular thing that occurred with his family that makes him feel down. Prepared eugene for [facility] intake and process moving forward. Eugene remains on board with EBP groups and plans to attend intake. No further sessions scheduled with this provider. ASSESSMENT MEASURES USED: [ ] Measure in Mental Health Physician Anesthesiologist. See accompanying Mental Health Diagnostic Study for details. [X] Measure(s) sent via [facility], electronically following visit. agrees to asynchronous electronic [...] engaging family and friends. PROGRESS TOWARDS GOAL: no change 2. GOAL/OBJECTIVES: Transfer to a Skills Training group PROGRESS TOWARDS GOAL: complete, appt scheduled. 3. GOAL/OBJECTIVES: PROGRESS TOWARDS GOAL: RESPONSE TO INTERVENTIONS: Veterans participation/engagement: [X]The [place] participated actively in the current interventions. [ ]Other: The [place] continues to consent to the current plan [...] RISK AND PROTECTIVE FACTORS: -IDEATION: [ ] [place] denied current suicidal or homicidal ideation, plan, or intent. [ ] Suicidal or homicidal ideation/behavior WAS identified: -CLINICAL JUDGMENT AND DISPOSITION: [ ] In consideration of relevant risk and protective factors, the [place] did NOT appear to be at imminent risk for suicide or homicide at this time and IS sustainable at the current level of care. [ ] [place] IS considered to be at INCREASED RISK for suicide or homicide based upon: -Actions/interventions taken to address risk and prevent harm include: -Emergency protocols initiated were: ASSIGNED WORK: Transfer to EBP groups. COLLABORATIVE RECOMMENDATIONS/PLAN: Collaboratively discussed outcomes related to assessment and treatment progress. Based on this discussion: [ ] No changes to plan of care. [place] expressed agreement with therapy tasks and zgnzgf-[id number]-[id number] plan. [X] Using shared decision making, [place] and provider agreed to the following change in plan: discharge. submit consult for groups. Educated [place] on the risks, benefits, and possible complications related to changes to treatment plan. agreed to proceed with the change. [X]YES [ ]NO [facility] Video Connect (VVC)/Video to home template v1.5 Visit conducted by synchronous telehealth. Location/emergency number confirmed. Environment surveyed and all participants identified. Virtual conference room locked. VVC/Video to home appointment information: The following items were reviewed: - The nature of telehealth, its benefits, and risks. - Confidentiality and its limits. - The importance of having a confidential location for the service. - The emergency plan. - The appointment should be treated like an in person appointment (no smoking or driving during session, showing up fully dressed, etc.) *The Virtual Medical Room was locked for this encounter. *A survey of the environment was conducted and it is appropriate to conduct a VVC appointment. *Confirmed 's Non-VA location for this appointment: 's Home [address], [place] [address] Address and phone number verified with [place]. Address: Phone: does not have an emergency contact. * was notified of right to decline Telehealth services and eligibility for other options. [place] consented to be seen via VVC. EMERGENCY PLAN In the event of an emergency, the [place] or family will call emergency services, if capable. The Teleprovider will remain in the virtual medical room until emergency response arrives and handoff to emergency services is complete. If is unable to make emergency call, the Teleprovider is to call the national E911 service at [phone] and ask to be connected to emergency services for the [place]'s location. 's Crisis Line: Dial 988 then press 1, or text [phone] Office of Connected Care Helpdesk ([facility]): [phone] or [phone] Verified Provider's location and contact information for this appointment: Other Location This provider is stationed at the [facility], but on this day was working virtually from home. Phone: /melecio/ Ravi Barry Psy.D. Staff Psychologist Signed: 09/29/2024 14:18 RAVI BARRY [facility]
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
--- OUTSIDE RECORDS SUMMARY | 2025-02-21 11:33 | XMS_ITS | Encounter Summary ---
Author Name [facility] Address [address] [place] [address] Care Team Providers Care [place] Worker Name Role Phone EHSAN HOUSTON Primary Care [...] BLUE FOCUS SELF Oct 11, 2024 131 [id number] [phone] APARNA COLE PATIENT ANTHEM [employer] [place] FEP PREFERRED PROVIDER ORGANIZAT ION (PPO) FEP BLUE FOCUS SELF Oct 11, 2024 131 [id number] [phone] APARNA COLE PATIENT ANTHE[place] [employer] [place] PREFERRED PROVIDER ORGANIZAT ION (PPO) FEP BLUE FOCUS SELF Oct 11, 2024 131 [id number] [phone] APARNA COLE PATIENT [employer] [place] FEP PREFERRED PROVIDER ORGANIZAT ION (PPO) FEP BLUE FOCUS SELF Oct 11, 2024 131 [id number] [phone] APARNA COLE PATIENT [employer] FEP ([id number]) PRESCRIPT ION FEPRX Oct 11, 2024 [id number] [phone] APARNA COLE PATIENT [facility] [facility] 2024 SELEC T WNR Sep 30, 2024 SELECT [id number] [phone] APARNA COLE PATIENT [facility] [facility] 2024 TRICA RE SELEC T Sep 30, 2024 SELECT [id number] APARNA COLE PATIENT Selected Encounter This section includes the information on record at [place] for the Encounter. Date/Time Encounter Type Encounter Description Reason Provider Source Mar 10, 2024 03:00 PM OFFICE O/P EST MOD 30 MIN PRIMARY CARE/MEDICINE ICD-10-CM M25.571 Pain in right ankle and joints of right foot SIMMERING,OWEN E Encounter Template Text not used by [place] Assessments - Encounter Diagnoses This section includes the primary and secondary diagnoses documented for the Encounter. Date/Time Primary/Secondary Diagnosis Diagnosis Name Provider Source Mar 10, 2024 03:28 PM PRIMARY Pain in right ankle and joints of right foot SIMMERING,OWEN [facility] Mar 10, 2024 03:28 PM SECONDARY Cervicalgia [facility] Mar 10, 2024 03:28 PM SECONDARY Hallux valgus (acquired), unspecified foot SIMMERING,OWEN [facility] Mar 10, 2024 03:28 PM SECONDARY Low back pain, unspecified SIMMERING,[facility] Plan of Treatment: Future Appointments (+ 6 months) and Future Tests (+/- 45 days) The Plan of Treatment section includes future care activities for the patient from all [place] treatmentfacilities. This section includes future appointments and future orders which are active, pending or scheduled. Future Appointments This section includes appointments that were scheduled to occur 6 months from the date of the Encounter, up to a maximum of 20 appointments. The data comes from all [place] treatment facilities. Appointment Date/Time Appointment Type Appointme nt Facility Name Aug 12, 2024 02:00 PM AMBULATORY - MEDICINE [facility] Sep 08, 2024 11:00 AM AMBULATORY - MEDICINE [facility] Active, Pending, and Scheduled Orders This section includes a listing of several types of active, pending, and scheduled orders, including clinic medications orders, diagnostic test orders, procedure orders and consult orders; where the start date of the order is 45 days before the date of the Encounter or 45 days after the date of theEncounter. The data comes from all [place] treatment facilities. Test Date/Time Test Type Test Details Facility Name Mar 10, 2024 12:00 AM Laboratory - Chemi stry Order URINALYSIS (STL-PB) URINE SP [facility] Mar 10, 2024 12:00 AM Laboratory - Chemi stry Order HGA1C BLOOD SP [facility] Mar 10, 2024 12:00 AM Laboratory - Chemi stry Order VITAMIN D, 25-HYDROXY GOLD/RED SST SERUM SP [facility] Mar 10, 2024 12:00 AM Laboratory - Chemi stry Order COMPREHENSIVE METABOLIC PANEL GREEN LI/HEP BLD/PLAS PLASMA SP [facility] Mar 10, 2024 12:00 AM Laboratory - Chemi stry Order LIPID PANEL (STL) GREEN LI/HEP BLD/PLAS PLASMA SP ONCE [facility] Mar 10, 2024 12:00 AM Laboratory - Chemi stry Order CBC BLOOD SP [facility] Vital Signs: All taken on the encounter date This section contains inpatient and outpatient Vital Signs collected on the date of the Encounter. Date/Time Temperature Pulse Blood Pressure Respiratory Rate SP02 Pain Height Weight Body Mass Index Source Mar 10, 2024 03:07 PM 98.2 66 116/76 20 96 6 222 31 [facility] Social History: Smoking Status (Most current) and Tobacco Use (All prior to encounter date) This section includes the most current, and the historical, smoking and tobacco- related health factors from the [place] facility where the Encounter took place. Current Smoking Status This section includes the most current smoking, or tobacco-related health factor, from the [place] facility where the Encounter took place. Date/Time Current Smoking Status Comment Facil ity Mar 10, 2024 03:00 PM VA-TOBACCO NEVER USED [facility] Tobacco Use History This section includes a history of the smoking, or tobacco-related health factors, that were collected on or before the date of the Encounter. The data comes from the [place] facility where the Encounter took place. Date/Time Smoking Status/Tobacco Use Comment Bhargavi good Nov 05, 2022 03:00 PM VA-TOBACCO NEVER USED [facility] Jul 13, 2020 11:30 AM VA-TOBACCO NEVER USED [facility] Jul 07, 2019 11:19 AM VA-TOBACCO NEVER [facility]ED [facility] Encounter Notes: All associated encounter notes This section contains the clinical notes associated to the Encounter. Date/Time Encounter Note(s) Provider Source Mar 10, 2024 03:34 PM ORTHOTICS PROSTHET ICS NOTE: LOCAL TITLE: PROSTHETICS FOOT EVALUATION ST STANDARD TITLE: ORTHOTICS PROSTHETICS NOTE DATE OF NOTE: MAR 10, 2024@15:34 ENTRY DATE: MAR 10, 2024@15:34:29 AUTHOR: OWEN VILLAVICENCIOIGNER: URGENCY: STATUS: COMPLETED PROSTHETICS FOOT EVALUATION DIAGNOSIS: pes planus. [place]-Filament Test: Feb (within last 30 days) Sensation: Intact Circulation: Pedal Pulses: Posterior Tibial LEFT: Present RIGHT: Present Dorsalis Pedis LEFT: Present RIGHT: Present Hair Present: No History of Ulcers/Amputation: No List specific issues below. If none, indicate none below. ASSESSMENT: Foot Risk Score Level 2 MODERATE RISK Decreased sensation and circulation Foot deformity No ulceration or history of amputation Description of foot deformity or infection: pes planus. 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 leg lenght discrepncy. /melecio/ OWEN VILLAVICENCIO MD STAFF PHYSICIAN Signed: 03/10/2024 15:36 OWEN VILLAVICENCIO [facility] Mar 10, 2024 03:15 PM PRIMARY CARE NOTE: LOCAL TITLE: PRIMARY CARE PROVIDER ESTABLISHED VISIT ST STANDARD TITLE: PRIMARY CARE NOTE DATE OF NOTE: MAR 10, 2024@15:15 ENTRY DATE: MAR 10, 2024@15:15:08 AUTHOR: OWEN VILLAVICENCIOIGNER: URGENCY: STATUS: COMPLETED PRIMARY CARE PROVIDER ESTABLISHED VISIT ST Has ADDENDA ESTABLISHED PATIENT [id number]: REASON FOR VISIT/CHIEF COMPLAINT: HPI: pt had acquisition associate's. needs refurished. low back pain: no change. still hurting. neck pain: no change. WHAT IS YOUR GOAL FOR TODAY? SOURCE(S) OF HISTORY: Patient PAST MEDICAL HISTORY: 1) Ankle pain comment: right ankle fx. 2) Low Back Pain ([facility] [id number]) 3) Neck Pain ([facility] [id number]) 4) Headache ([facility] [id number]) 5) Elbow pain comment: bilateral 6) Scoliosis 7) Acquired hallux valgus FAMILY HISTORY: Reviewed and unchanged. SOCIAL HISTORY: NICOTINE:none ILLICIT DRUGS:none ALCOHOL:none ALLERGIES: Patient has answered NKA ALLERGY REVIEW: Allergy list reviewed and remains current. MEDICATIONS: Active and Recently Outpatient Medications (excluding Supplies): Active Outpatient Medications Status 1) CETIRIZINE HCL 10MG TAB TAKE ONE TABLET BY MOUTH ONCE ACTIVE A DAY 2) FLUTICASONE PROP 50MCG 120D NASAL INHL INSTILL 2 ACTIVE SPRAYS IN NOSTRIL(S) ONCE A DAY (MUST BE USED DIRECTED FOR MINIMUM OF 21 DAYS TO PROVIDE ADEQUATE BENEFITS) 3) LIDOCAINE 5% PATCH APPLY 1 PATCH TO SKIN SITE ONCE A ACTIVE DAY APPLY PATCH AND PRESS FIRMLY FOR 10-15 SECONDS. KEEP ON FOR 12 HOURS THEN REMOVE PATCH FOR 12 HOURS. 4) MELOXICAM 7.5MG TAB TAKE ONE TABLET BY MOUTH ONCE A ACTIVE DAY FOR OSTEOARTHRITIS 5) MENTHOL/M-SALICYLATE 10-15% TOP CREAM APPLY LIGHTLY ACTIVE TO AFFECTED AREA(S) FOUR TIMES A DAY (EXTERNAL USE ONLY) 6) METHOCARBAMOL 750MG TAB TAKE 1 TABLET BY MOUTH FOUR ACTIVE TIMES A DAY NEEDED MEDICATION RECONCILIATION: I have reviewed the patient's medication list with the patient and/or his/her care-grade foreman. Handwritten corrections, additions and/or deletions were made to the list. Corrected Outpatient Medication List was provided to the patient/caregiver. REVIEW OF SYSTEMS: General: Normal Ears, Nose, Mouth, Throat: Normal Eye: Normal Cardiovascular: Normal Respiratory: Normal ABD/GI: Normal Musculoskeletal/Extremities: Normal /EQUITY SALES ASSISTANT: Normal Hematology & Lymph: Normal Endocrine: Normal Skin: Normal PHYSICAL EXAMINATION: General appearance: VITALS (most recent, as listed in the electronic record): Temperature: 98.2 F [36.8 C] (03/10/2024 15:07) BP: 116/76 (03/10/2024 15:07) Pulse: 66 (03/10/2024 15:07) Resp: 20 (03/10/2024 15:07) PulsOx: 96% (03/10/2024 15:07) Pain: 6 (03/10/2024 15:07) Weight: Measurement DT WEIGHT LB(KG)[BMI] 03/10/2024 15:07 222(100.70)[31*] Ears, Nose, Mouth, Throat: Normal. Eye: Normal sclera Normal PERRLA Cardiovascular: S1 S2 Nl. Respiratory: Clear ABD/GI: Normal. Extremities: Normal /EQUITY SALES ASSISTANT: Deferred Hematology & Lymph: Normal Endocrine: Normal Psych: Normal Neuro: Normal. CN 2-12 WNL. Strength 4/4 all ext Reflexes 2+ x 4. Skin: Normal. DATA REVIEW: HGA1C 5.2 % 07/13/2020 12:50 Lipid Panel: No LIPID PANEL EO data found CMP: No COMPREHENSIVE METABOLIC PANEL EO data found CBC: No CBC EO data found No PSA (LAST 10 5Y) EO data found TSH: No TSH (1YR) EO data found VITAMIN D, 25-HYDROXY 26.5 L ng/mL 07/13/2020 12:50 INR: No INR EO data found UA: No URINALYSIS EO data found IM - IMMUNIZATIONS ADMINISTERED No data available CONTRAINDICATED No data available REFUSED ======= Immunization Date Facility Info HPV9 11/05/[address]22 [facility]* <I> TDAP 11/05/2022 [facility]* <I> <I> See the Detailed Immunizations Health Summary Component[DIM] for Additional Information * Value is truncated; see the Detailed Immunizations Health Summary Component[DIM] for complete text ST - SKIN TESTS No data available Result: Acceptable Follow-up Action: Re check prior to next visit. Data results reviewed with patient and/or caregiver. ASSESSMENT/PLAN: 1. pes planus /exostotis. needs new acquisition associate next year needs old acquisition associate refurbished. 2. vit d def. 3. allergic rhinitis. RETURN TO CLINIC: 12 months. SUMMARY STATEMENT: Plan of care has been discussed with including expected therapeutic benefits and potential side effects of prescribed medication and treatments. verbalizes understanding and is in agreement with the plan of care. Patient was instructed to keep all scheduled appointments and contact senior wealth advisor for any additional problems. PREVENTION & SCREENING: ALCOHOL: Clinical Reminder not due now or within a month COLORECTAL CANCER: Clinical Reminder not due now or within a month BLOOD PRESSURE: Clinical Reminder not due now or within a month HEMOGLOBIN A1C: Clinical Reminder not due now or within a month Sexual Orientation: The patient thinks of their sexual orientation as: Straight or Heterosexual COVID-19 Immunization: Refused Moderna Monovalent COVID-19 vaccine Immunization: COVID-19 (MODERNA), MRNA, LNP-S, PF, 50 MCG/0.5 ML (AGES 12+ YEARS) Refusal Reason: PATIENT DECISION Patient refuses all immunization(s) in the COVID-19 group Date Documented: 03/10/24 15:27 Influenza Immunization: No influenza vaccination was received during the recent influenza season. Human Papillomavirus (HPV): The patient declines to receive the recommended dose of HPV vaccine. Immunization: HPV9 Refusal Reason: PATIENT DECISION Patient refuses all immunization(s) in the HPV group Date Documented: 03/10/24 15:27 [facility] MAP: PERSONAL HEALTH PLAN INVENTORY & MAP 's Response: family Prior Approval/Non-formulary Drug: MEDICATION USE EVALUATION Tdap Immunization: The patient declines to receive the recommended dose of Tdap vaccine. Immunization: TDAP Refusal Reason: PATIENT DECISION Patient refuses all immunization(s) in the TDAP group Date Documented: 03/10/24 15:28 /melecio/ OWEN VILLAVICENCIO MD STAFF PHYSICIAN Signed: 03/10/2024 15:29 03/10/2024 ADDENDUM STATUS: COMPLETED pt states he has ankle right sided. worse with ambulation status post surgery declines inetervention at this time. /melecio/ OWEN VILLAVICENCIO MD STAFF PHYSICIAN Signed: 03/10/2024 15:29 OWEN VILLAVICENCIO [facility] Mar 10, 2024 03:09 PM NURSING NOTE: LOCAL TITLE: V15 PACT FACE TO FACE NOTE ST STANDARD TITLE: NURSING NOTE DATE OF NOTE: MAR 10, 2024@15:09 ENTRY DATE: MAR 10, 2024@15:09:21 AUTHOR: JORDYN CORADO COSIGNER: URGENCY: STATUS: COMPLETED Provider Visit: Patient Identifiers : Full Name Date of Reason for visit: Established Follow-Up Mode of Arrival: Ambulatory Allergy Review: Patient has answered NKA Allergy list reviewed and remains current. Recent Vital Signs: Temperature: 98.2 F [36.8 C] (03/10/2024 15:07) Pulse: 66 (03/10/2024 15:07) Respiration: 20 (03/10/2024 15:07) B/P: 116/76 (03/10/2024 15:07) Pain: 6 (03/10/2024 15:07) Wt: 222 lb [100.70 kg] (03/10/2024 15:07) Ht: 71 in [180.3 cm] (01/10/2021 10:24) BMI: 31.0 POX: 96% (03/10/2024 15:07) Would you like to discuss any personal problem, family problem, alcohol use, drug use, or a mental or emotional illness? No My [facility] ([facility]), please select appointment type: Face to face: Yes- Done Contact provided Primary Care phone number and encouraged to call if any questions or concerns. Review that after hours nurse line [phone] and emergency room are available 22/04 for patient use. Contact verbalized good understanding. No notification required for this note. Depression Screening: Perform PHQ-2 A PHQ-2 screen was performed. The score was 0 which is a negative screen for depression. Over the past two weeks, how often have you been bothered by the following problems? 1. Little interest or pleasure in doing things Not at all 2. Feeling down, depressed, or hopeless Not at all Homelessness/Food Insecurity Screen: In the past 2 months, have you been living in stable housing that you own, rent, or stay in as part of a household? Yes - Living in stable housing. Are you worried or concerned that in the next 2 months you may NOT have stable housing that you own, rent, or stay in as part of a household? No - Not worried about housing near future The [place] reports the following: Within the past 12 months, you worried whether your food would run out before you got money to buy more. Never true Within the past 12 months, the food you bought just didn't last and you didn't have money to get more. Never true PTSD Screening: PC-PTSD-5 A PTSD screening test (PC-PTSD-5) was negative (score=0). IN THE PAST MONTH, have you ever had any experience that was so frightening, horrible or traumatic. For example: A serious accident or fire a physical or sexual assault or abuse An earthquake or flood A war Seeing someone be killed or seriously injured Having a loved one through homicide or suicide 1. Have you ever experienced this kind of event? NO 2. Had nightmares about the event(s) or thought about the event(s) when you did not want to? Response not required due to responses to other questions. 3. Tried hard not to think about the event(s) or went out of your way to avoid situations that reminded you of the event(s)? Response not required due to responses to other questions. 4. Been constantly on guard, watchful, or easily startled? Response not required due to responses to other questions. 5. [place] numb or detached from people, activities, or your surroundings? Response not required due to responses to other questions. 6. [place] guilty or unable to stop blaming yourself or others for the event(s) or any problems the event(s) may have caused? Response not required due to responses to other questions. Tobacco Use Screening: The patient has never used tobacco. /melecio/ JORDYN CORADO Licensed Practical Nurse Signed: 03/10/2024 15:[address] [facility]
--- OUTSIDE RECORDS SUMMARY | 2025-02-21 11:33 | XMS_ITS | Encounter Summary ---
Author Name [facility] [place] Organization [facility] [place] Address [address] [place] [address] Care Team Providers Care Shipping And Receiving Name Role Phone EHSAN HOUSTON Primary Care Provider UnavailDAVID Phillips Unavailable Unavailable JOHNNA LEGGETT Unavailable Unavailable ZOIE SANCHEZ Unavailable Unavailab JU Velásquez Unavailable Unavailable JESICA DESUOZA Unavailable Unavailable AXEL MONTES Unavailable Unavailable JONA [...] BLUE FOCUS SELF Oct 11, 2024 131 [id number] [phone] DOUGLASAPARNA MADSEN PATIENT ANTHEM [employer] [place] FEP PREFERRED PROVIDER ORGANIZAT ION (PPO) FEP BLUE FOCUS SELF Oct 11, 2024 131 [id number] [phone] DOUGLASAPARNA MADSEN PATIENT [place] PREFERRED PROVIDER ORGANIZAT ION (PPO) FEP BLUE FOCUS SELF Oct 11, 2024 131 [id number] [phone] APARNA COLE PATIENT [employer] [place] F[place] PREFERRED PROVIDER ORGANIZAT ION (PPO) FEP BLUE FOCUS SELF Oct 11, 2024 131 [id number] [phone] APARNA COLE PATIENT [employer] FEP ([id number]) PRESCRIPT ION FEPRX Oct 11, 2024 [id number] [phone] APARNA COLE PATIENT [facility] 2024 SELEC T WNR Sep 30, 2024 SELECT [id number] APARNA COLE PATIENT [facility] 2024 TRICA RE SELEC T Sep 30, 2024 SELECT [id number] 27 APARNA COLE PATIENT Selected Encounter This section includes the information on record at [place] for the Encounter. Date/Time Encounter Type Encounter Description Reason Provider Source Dec 30, 2024 09:00 AM GROUP PS[facility]CHOTHER[facility]Y [facility] ICD-10-CM F43.21 Adjustment disorder with depressed mood SHIRIN ELDRIDGE aMverick Encounter Template Text not used by [place] Assessments - Encounter Diagnoses This section includes the primary and secondary diagnoses documented for the Encounter. Date/Time Primary/Secondary Diagnosis Diagnosis Name Provider Source Dec 31, 2024 07:46 AM PRIMARY Adjustment disorder with depressed mood SHIRIN ELDRIDGE [facility] Plan of Treatment: Future Appointments (+ 6 months) and Future Tests (+/- 45 days) The Plan of Treatment section includes future care activities for the patient from all [place] treatmentfacilities. This section includes future appointments and future orders which are active, pending or scheduled. Future Appointments This section includes appointments that were scheduled to occur 6 months from the date of the Encounter, up to a maximum of 20 appointments. The data comes from all [place] treatment facilities. Appointment Date/Time Appointment Type Appointme nt Facility Name Jan 06, 2025 09:00 AM AMBULATORY - PSYCHIATRY [facility] Jan 13, 2025 09:00 AM AMBULATORY - PSYCHIATRY [facility] Jan 20, 2025 09:00 AM AMBULATORY - PSYCHIATRY [facility] Jan 27, 2025 09:00 AM AMBULATORY - PSYCHIATRY [facility] February 10, 2025 09:00 AM AMBULATORY - PSYCHIATRY [facility] February 17, 2025 09:00 AM AMBULATORY - PSYCHIATRY [facility] February 24, 2025 09:00 AM AMBULATORY - PSYCHIATRY [facility] Mar 09, 2025 02:30 PM AMBULATORY - MEDICINE [facility] Encounter Notes: All associated encounter notes This section contains the clinical notes associated to the Encounter. Date/Time Encounter Note(s) Provider Source Dec 30, 2024 10:30 AM SOCIAL WORK NOTE: LOCAL TITLE: SOCIAL WORK [facility] STANDARD TITLE: SOCIAL WORK NOTE DATE OF NOTE: DEC 30, 2024@10:30 ENTRY DATE: DEC 30, 2024@10:30:38 AUTHOR: SHIRIN ELDRIDGE COSIGNER: URGENCY: STATUS: COMPLETED CBT-D Group: Session 3: CBT FOR DEPRESSION: HOW THOUGHTS AFFECT OUR MOOD Length of Session: 90 minutes LOCATION: [facility] Diagnosis: Adjustment disorder, depressed ([place]) Number of members present: 5 Intervention/Summary of Ssn: 1. REVIEW: a. The daily mood scale b. What kinds of thoughts did you have last week c. The purpose of this course 2. WAYS TO INCREASE HEALTHY THINKING: a. Increase thoughts that produce a better mood 1. Increase number of good thoughts in your mind ( make a list of good thoughts about yourself and about life) 2. Give yourself pats on the back. Most of what we do is noticed by others. Therefore we must notice them and give ourself credit. I made it to group today even though it was raining 3. Hold Everything: Give yourself a break by taking time out mentally. Pause. Let your mind relax and let your mind take a break. Allow your body to be at peace. 4. Time projection: imagine yourself taking the steps to move toward a time when things will be better. b. ACTIVITY: Good things about me/ Good things about life 1. How do you feel reading the list 3. DECREASING THOUGHTS THAT MAKE US FEEL BAD a. Thought stopping: When a thought ruins your mood 1. Identify it. 2. Tell yourself: this thought it ruining my mood 3. Think of another thought b. Worrying time 1. Schedule worry time each day so that you can concentrate completely on Necessary thinking and leave the rest of the day free of worry 2. Worry time can be 10-30 minutes long c. Make fun of problems by exaggerating them 1. Make fun of your own worries 2. Practice having a sense of humor d. Consider the worse that could happen 1. Vague fears about what could happen often make us more depressed than thinking things thru and considering the worst possibilities 2. Remember that the worst that can happen is only one of many possibilities 3. Just because it is the worst it is not the one most likely to happen e. Be your own personal health coach 1. How do you want the situation to groover and turner 2. Is the outcome realistic? 3. Think what steps are necessary to reach your goal 4. By doing this you are controlling your Depression f. TALKING BACK TO YOUR THOUGHTS USING THE ABC METHOD 1. When you feel depressed ask yourself what you are thinking. Then talk back to the thought that is hurting you. 2. A. Activating event (what happened) 3. B. Belief or thought you are having ( what I tell myself about what happened) 4. C. Consequence: Feeling that you have because of thought 5. D. Dispute or talk back to thought g. EXAMPLE: You feel depressed. You think about it and think it is because you have diabetes. 1. A. I have diabetes (fact) 2. B. No one can be happy if one has diabetes/ diabetes will ruin my life/ I cannot stand having diabetes. 3. C. The consequence of thinking these thoughts is feeling depressed for a long time 4. D. I can talk back to these thoughts: There are people who have diabetes and are as happy as people who don't have diabetes. Diabetes is a burden I have to deal with it, but it does not necessarily ruin every minute of my life. Having diabetes is unfortunate but many human beings have diabetes. Humans can lead satisfying lives even though they have diabetes. I am a human being therefore I can lead a satisfying life even though I have diabetes. HOMEWORK: Continue daily mood scale Continue to fill out check list of thoughts each day Practice ABCD method to talk back to your thoughts ASSESSMENT: was alert and fully oriented. [place] was engaged and participated appropriately in session. appeared responsive to treatment and was receptive to interventions. did not express nor exhibit signs of HI/SI and appears able to be managed as an outpatient. PLAN: Attend CBT-D Group session 4 in 1 week /melecio/ MIRANDA SPRINGER, MUSEUM EXHIBIT DESIGNER Hydraulic Press Tender [facility] Signed: 12/30/2024 10:33 SHIRIN ELDRIDGE [facility]
--- OUTSIDE RECORDS SUMMARY | 2025-02-21 11:33 | XMS_ITS | Encounter Summary ---
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 Name Role Phone EHSAN HOUSTON Primary [...] BLUE FOCUS SELF Oct 11, 2024 131 [id number] [phone] DOUGLASAPARNA MADSEN PATIENT AN[employer] [employer] [place] FEP PREFERRED PROVIDER ORGANIZAT ION (PPO) FEP BLUE FOCUS SELF Oct 11, 2024 131 [id number] [phone] DOUGLASAPARNA MADSEN PATIENT [employer] [employer] [place] FEP PREFERRED PROVIDER ORGANIZAT ION (PPO) FEP BLUE FOCUS SELF Oct 11, 2024 131 [id number] [phone] APARNA COLE PATIENT [employer] [place] FEP PREFERRED PROVIDER ORGANIZAT ION (PPO) FEP BLUE FOCUS SELF Oct 11, 2024 131 [id number] [phone] APARNA COLE PATIENT [employer] ([id number]) PRESCRIPT ION FEPRX Oct 11, 2024 [id number] [phone] APARNA COLE PATIENT [facility] 2024 SELEC T WNR Sep 30, 2024 SELECT [id number] APARNA COLE PATIENT [facility] 2024 TRICA RE SELEC T Sep 30, 2024 SELECT [id number] APARNA COLE PATIENT Selected Encounter This section includes the information on record at [place] for the Encounter. Date/Time Encounter Type Encounter Description Reason Provider Source February 03, 2025 09:00 AM [facility] ICD-10-CM F43.21 Adjustment disorder with depressed mood SHIRIN ELDRIDGE [place] Encounter Template Text not used by [place] Assessments - Encounter Diagnoses This section includes the primary and secondary diagnoses documented for the Encounter. Date/Time Primary/Secondary Diagnosis Diagnosis Name Provider Source February 08, 2025 11:31 AM PRIMARY Adjustment disorder with depressed mood SHIRIN ELDRIDGE [facility] Plan of Treatment: Future Appointments (+ 6 months) and Future Tests (+/- 45 days) The Plan of Treatment section includes future care activities for the patient from all [place] treatmentfacilities. This section includes future appointments and future orders which are active, pending or scheduled. Future Appointments This section includes appointments that were scheduled to occur 6 months from the date of the Encounter, up to a maximum of 20 appointments. The data comes from all [place] treatment facilities. Appointment Date/Time Appointment Type Appointme nt Facility Name February 10, 2025 09:00 AM AMBULATORY - PSYCHIATRY [facility] February 17, 2025 09:00 AM AMBULATORY - PSYCHIATRY [facility] February 24, 2025 09:00 AM AMBULATORY - PSYCHIATRY [facility] Mar 09, 2025 02:30 PM AMBULATORY - MEDICINE [facility] Encounter Notes: All associated encounter notes This section contains the clinical notes associated to the Encounter. Date/Time Encounter Note(s) Provider Source February 03, 2025 10:44 AM SOCIAL WORK NOTE: LOCAL TITLE: SOCIAL WORK [facility] BASED PSYCHOTHERAPY [facility] STANDARD TITLE: SOCIAL WORK NOTE DATE OF NOTE: FEBRUARY 03, 2025@10:44 ENTRY DATE: FEBRUARY 03, 2025@10:44:27 AUTHOR: SHIRIN ELDRIDGE EXP COSIGNER: URGENCY: STATUS: COMPLETED CBT-D Group: Session 8: WORKING WITH DAILY ACTIVITIES Length of Session: 90 minutes LOCATION: [facility] Diagnosis: Adjustment disorder, depressed ([place]) Number of members present: 4 Review: 1. Purpose of Group: to gain control over depression 2. Theory: You can learn to influence your mood 3. Practice: Change what is under your control a. Your thinking b. Your actions 4. Homework: The daily mood scale a. Your list of activities b. You daily schedule c. Your goals I. Depression and the Healthy Management of Reality a. All of us live in 2 worlds: i. The OBJECTIVE WORLD: or the outside world. This is all that we sense. (see, feel, hear, smell, taste) ii. The SUBJECTIVE WORLD: or the inside world. (what we think about what makes sense) iii. Is the glass half full or half empty? II. These 2 worlds are our REALITY a. The [place] to feeling healthy is learn how to manage these 2 parts of our reality III. NO ONE can control either of these 2 worlds completely. a. We can learn to gain more control over them, however. i. WHEN WE ARE DEPRESSED, WE FEEL WE HAVE NO CONTROL IV. WAYS TO FEEL MORE CONTROL a. Alternatives i. Altering objective world with +Activities +Social Contacts +Assertive communication ii. Altering subjective world with: -More healthy/helpful thinking -Less unhealthy/harmful thinking b. THINKING ABOUT LIFE BEING MADE UP OF CHUNKS OF TIME i. Be care about saying to yourself: I cannot enjoy life until?.. 1. For example if you said: I cannot enjoy life until this depression is over? a. You may not do the kinds of things that will help depression end soon b. On the other hand if you begin to fill both your Outside and Inside worlds with healthy, pleasant, and meaningful things for yourself, the depression is more life to end sooner. 2. Exercise: a. What do you feel gets in the way of you enjoying your life more? b. How have you tried to deal with this? Has it helped? c. If it has helped, why do you think it has helped? If it has not helped, why do you think it hasn't helped? d. What are some alternatives or other options available to you? ii. Pleasant Activities make chunks of time more satisfying 1. As the way you spend your time becomes more satisfying, your life does too 2. Build your pleasant activities into your life plan 3. Pleasant Activities Help you feel less distressed and help you feel emotionally healthier 4. The better you feel the more you can do for yourself and others. HOMEWORK 1. Daily mood scale 2. List of activities 3. THE WAY We think about reality matters ASSESSMENT: [place] was alert and fully oriented. was engaged and participated appropriately in session. appeared responsive to treatment and was receptive to interventions. did not express nor exhibit signs of HI/SI and appears able to be managed as an outpatient. PLAN: Attend CBT-D group session 9 in 1 week /melecio/ MIRANDA SPRINGER, PLATING EQUIPMENT TENDER Warper Creeler [facility] [place] Signed: 02/03/2025 10:45 SHIRIN ELDRIDGE [facility]
--- OUTSIDE RECORDS SUMMARY | 2025-02-21 11:34 | XMS_ITS | Continuity of Care Document ---
Author Name [facility] Organization [facility] Care Team Providers Care Public Health Aides Teacher Name Role Phone [facility] Unavailable Unavailable Problems Combined list of problems from Department of 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 It does not include entries that were removed or entered in error. Problem Status Onset Date Problem Type Date of Resolution Comments Source Osteochondritis dissecans, right ankle and joints of right foot Active 018 Condition DoD Pain in right knee Inactive 018 Condition DoD Generalized anxiety disorder Active 018 Condition DoD Snoring Inactive 018 Condition DoD Scoliosis, unspecified Active 018 Condition DoD Plantar fascial fibromatosis Active 018 Condition DoD Insomnia, unspecified Active 018 Condition DoD Cervicalgia Inactive 017 Condition DoD Pain in right hip Inactive 017 Condition DoD Acquired hallux valgus Active Condition [facility] Ankle fracture Active Condition Apr Entered By: EHSAN HOUSTON Comment: while in service, right ankleAug 2018 Entered By: EHSAN HOUSTON Comment: osteochondral fracture medial talus, per 06/17 xrayAug 2018 Entered By: EHSAN HOUSTON Comment: osteochondritis dessecans right ankleAug 2018 Entered By: EHSAN HOUSTON Comment: surgery advised. [facility] Ankle pain Active Condition Jul 14 Entered By: OWEN VILLAVICENCIO Comment: right ankle fx. [facility] Bilateral tinnitus Active Condition [facility] Kade Archibald [facility] Chronic pain syndrome Active Condition [facility] Elbow pain Active Condition Jul 14 Entered By: OWEN VILLAVICENCIO Comment: bilateral [facility] Family social history Active Condition Apr 30, 2019 Entered By: EHSAN HOUSTON Comment: father with HTN, no cancerAug 2018 Entered By: EHSAN HOUSTON Comment: no CAD or CVA [facility] H/O: surgery Active Condition Apr 30, 2019 Entered By: EHSAN HOUSTON Comment: deviated septum and revisiong 2018 Entered By: EHSAN HOUSTON Comment: wisdom teeth [facility] Headache ([facility] [id number]) Active Condition [facility] Low Back Pain ([facility] [id number]) Active Condition [facility] Neck injury Active Condition Apr 30, 2019 Entered By: EHSAN HOUSTON Comment: [place] for neck pain [facility] Neck Pain ([facility] [id number]) Active Condition [facility] Scoliosis Active Condition [facility] Social history baseline finding Active Condition Apr 30 9 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: 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, 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, -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 Entered By: EHSAN HOUSTON Comment: 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 in [place] 2018 Entered By: EHSAN HOUSTON Comment: fit, activeAug 2018 Entered By: EHSAN HOUSTON Comment: non-smokerg 2018 Entered By: EHSAN HOUSTON Comment: non-drinkerAug 2018 Entered By: EHSAN HOUSTON Comment: live with Mom [facility] Pseudofolliculitis barbae Active Condition DoD Overweight Active Condition [facility] Body mass index (BMI) 28.0-28.9, adult Active Condition DoD Diagnosis: ICD-10-CM F43.21 Adjustment disorder with depressed mood Active Diagnosis [facility] Diagnosis: ICD-10-CM Z63.0 Problems in relationship with spouse or partner Active Diagnosis [facility] Diagnosis: ICD-10-CM Z65.3 Problems related to other legal circumstances Active Diagnosis [facility] Diagnosis: ICD-10-CM F32.A Depression, unspecified Active Diagnosis [facility] Diagnosis: ICD-10-CM F33.1 Major depressive disorder, recurrent, moderate Active Diagnosis [facility] Diagnosis: ICD-10-CM F41.1 Generalized anxiety disorder Active Diagnosis [facility] Diagnosis: ICD-10-CM F43.20 Adjustment disorder, unspecified Active Diagnosis . [facility] Diagnosis: ICD-10-CM M25.571 Pain in right ankle and joints of right foot Active Diagnosis . [facility] Allergies, Adverse Reactions, Alerts Combined list of allergies from Department of 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 It does not include entries that were removed or entered in error. Substance Category Reaction Severity Reaction type Status Date Reported Comments Source No Known Allergies Drug allergy (disorder) active 06/08/2016 [place] Immunizations Combined list of available immunizations from the Department of 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 Status Comments Source Influenza, injectable, quadrivalent, preservative free 1 2017 [id number] Seqirus (SEQ) comple t ed Influenza , injectabl e, quadrival ent, preservat durga free DoD anthrax vaccine 1 2017 [id number] Emergent [employer] Amanda ([facility]) complet ed anthrax vaccine DoD typhoid Vi capsular polysaccharid e vaccine 1 2017 [id number] Sanofi Pasteur (PMC) complet ed typhoid Vi capsular polysacch aride vaccine DoD Human Papillomaviru s 9-valent vaccine 1 2017 LELE DOMINGUEZ [id number] Merck (MSD) complet ed Human Papilloma virus 9-valent vaccine DoD Influenza, injectable, quadrivalent, preservative free 1 2016 [id number] 150 Seqirus (SEQ) comple t ed Influenza , injectabl e, quadrival ent, preservat durga free DoD hepatitis A and hepatitis B vaccine 3 2016 [id number] 104 SmithKline (SKB) complet ed hepatitis A and hepatitis B vaccine DoD Influenza, seasonal, injectable, preservative free 1 2016 [id number] 140 CSNext Gen Illumination[employer] (CSL) complet ed Influenza , seasonal, injectabl e, preservat durga free DoD varicella virus vaccine 2 2015 [id number] 21 Merck (MSD) complet ed varicella virus vaccine DoD hepatitis A and hepatitis B vaccine 2 2015 [id number] 104 SmithKline (SKB) complet ed hepatitis A and hepatitis B vaccine DoD measles, mumps and rubella virus vaccine 1 2015 UNK 03 Unknown (UNK) Not Given measles, mumps and rubella virus vaccine DoD poliovirus vaccine, inactivated 1 2015 [id number] 10 Sanofi Pasteur (PMC) complet ed polioviru s vaccine, inactivat ed DoD varicella virus vaccine 1 2015 [id number] 21 Merck (MSD) complet ed varicella virus vaccine DoD hepatitis A and hepatitis B vaccine 1 2015 [id number] 104 WorkleKline (SKB) complet ed hepatitis A and hepatitis B vaccine DoD meningococcal polysaccharid e (groups A, C, Y and W-135) diphtheria toxoid conjugate vaccine (MCV4P) 1 2015 [id number] 114 Sanofi Pasteur (PMC) complet ed meningoco ccal polysacch aride (groups A, C, Y and W-135) diphtheri a toxoid conjugate vaccine (MCV4P) DoD tetanus toxoid, reduced diphtheria toxoid, and acellular pertu is vaccine, adsorbed 1 2015 [id number] 115 Uman Pharmaine (SKB) complet ed tetanus toxoid, reduced diphtheri a toxoid, and acellular pertussis vaccine, adsorbed DoD Adenovirus, type 4 and type 7, live, oral 1 2015 [id number] 143 Val[employer] Laboratories (BRR) complet ed Adenoviru s, type 4 and type 7, live, oral DoD Vital Signs Combined list of inpatient and outpatient Vital Signs from Department of Defense and Veterans Affairs, ranging from 12 months to all on record, depending upon the facility. Vital Sign Value Date Comments Source SYSTOLIC BLOOD PRESSURE 116 03/10/2024 15:07:37 . [facility] DIASTOLIC BLOOD PRESSURE 76 03/10/2024 15:07:37 . [facility] PULSE OXIMETRY 96 03/10/2024 15:07:37 [facility] WEIGHT 222 03/10/2024 15:07:37 [facility] BMI 31 kg/m2 03/10/2024 15:07:37 [facility] PAIN 6 03/10/2024 15:07:37 [facility] TEMPERATURE 98.2 03/10/2024 15:07:37 . [facility] PULSE 66 03/10/2024 15:07:37 [facility] RESPIRATION 20 03/10/2024 15:07:37 [facility] Encounters Combined list of: 1) Encounters from Department of Veterans Affairs facilities going backup to the last 18 months, not all VA inpatient encounters are included; 2) Encounters from the Department of Defense facilities going backup to 280 months. Location Location Details Encounter Type Encounter Number Reason For Visit Attending Provider ADM Date DC Date Status Disposition Source [place] OUTPATIENT [id number] Notes Entered by: ZABRINA WESTON 07 Jun 2016 1558 ------- ------- ------- ------- -- OST IET KENDRICK WESTON 06/07 Released w/o Limitations [facility] [place] [place] OUT[place] [id number] Notes Entered by: JED HERNANDEZ 08 Jun 2016 0846 ------- ------- ------- ------- -- BLOOD JED HERNANDEZ 06/08 Released w/o Limitations [facility] [place] [facility] [place] OUTPAT[place] [id number] Notes Entered by: Luis Daniel MARTIN 08 Jun 2016 1049 ------- ------- ------- ------- -- 95th PONCHO KWOK 06/08 Released w/o Limitations [facility] [place] [facility] [place] [id number] Notes Entered by: BIRDIE CHAHAL 12 Jun 2016 1023 ------- ------- ------- ------- -- RANCHO ADAMSON 06/12 Released w/o Limitations [facility] [place] [facility] [place] [id number] Notes Entered by: James JEFF 30 Jul 2016 1518 ------- ------- ------- ------- -- CONT IMM MELINDA GREENBERG 07/30 Released w/o Limitations [facility] [place] Physical Exams/Wel come Ctr) OUTPATIENT [id number] Notes Entered by: Codie DOVER 29 Nov 2016 0846 ------- ------- ------- ------- -- BHA/PHA LETI DOVER 11/29 Released w/o Limitations [place] Physica l Exams/[facility] Ctr[place] OUT[place]IENT [id number] Pt. states breathi ng concern / Appt per GABBI Moore 01/08 [place]ased w/o Limitations [place] OUTPATIENT [id number] Notes Entered by: Maverick MUNIZ 10 Jan 2017 0838 ------- ------- ------- ------- -- shortne ss of breath, right thigh pain HEMANT HILL 01/10 Released w/o Limitations [place] [place] OUT[place] [id number] S/EYE EXAM ELIANE MEJÍA 01/17 [place]ased w/o Limitations [place] OUTPAT[place] [id number] Notes Entered by: Rosa Maria BETANCUR 18 Jan 2017 0851 ------- ------- ------- ------- -- sick call/ shortne ss of breath/ congers nitza/ cough/ headach e/ trouble sleepin HEMANT Naidu 01/18 Released w/o Limitations [place] OUTPATIENT [id number] pt. states f/u on Allergi es GABBI HERRERA 01/18 [place]ased w/o Limitations [place] [id number] LILO FOWLER BRISA 02/04 Released [place]/o Limitations [place] [id number] right knee pain GABBI HERRERA 02/20 Released with Work/Duty Limitations [place] [id number] Notes Entered by: Rosa Maria BETANCUR 04 Mar 2017 0833 ------- ------- ------- ------- -- Triage/ bug bites from the field ANGELA SIMPSON 03/04 Released w/o Limitations [place] [id number] #[id number] K LILO FOWLER BRISA 03/05 Released w/o Limitations [place] [id number] right knee pain GABBI HERRERA KARI 03/11 Released with Work/Duty Limitations [place] [id number] RT KNEE PAIN OWEN WINTERS 03/20 Released with Work/Duty Limitations [place] [id number] Strain of right quadric eps muscle, fascia and tendon, subsequ ent encount er POLLO TSANG 03/28 Released with Work/Duty Limitations [place]) [place] [id number] JEAN-PAUL GUY 03/29 [place]ased w/o Limitations [place] [id number] L knee pain GABBI HERRERA 04/03 Released with Work/Duty Limitations [place] [id number] LAVELLE SAHU 04/10 [place]ased [place]/o Limitations [place]) [place] [id number] CHUNG ALFORD 04/12 [place]ased [place] [id number] shoulde r pain JAVIER GABBI KARI 04/12 [place]ased w/o Limitations [place] [id number] CHUNG ALFORD 04/15 [place]ased [place]/o Limitations [place] [id number] F/U R KNEE POLLO TSANG 04/17 [place]ased w/o Limitations [place] [id number] Deviate d nasal septum CHUNG DU P 04/23 Released w/o Limitations [place] [id number] pt. states f/u both knees GABBI HERRERA 04/30 Released with Work/Duty Limitations [place] [id number] pre op may/ rb s.d. 6 sept CHUNG DU P 05/28 Released w/o Limitations [place] OUTPATIENT [id number] pt. states ct scan results GABBI HERRERA 05/30 [place]ased w/o Limitations [place] [id number] POST OP, SD WAS 6 JUN 16, POP SPLINTS CHUNG DU P 06/11 Released w/o Limitations [place] [id number] headach es GABBI HERRERA 06/19 Released w/o Limitations [place] [id number] hip pain GABBI HERRERA 07/11 Released w/o Limitations [place] [id number] f/u nose CHUNG DU 07/16 Released w/o Limitations [place] [id number] pt. states GABBI Self 07/25 Released w/o Limitations [place]) [place] [id number] BearweFLAVIA Reece 07/30 Released w/o Limitations [place] [id number] ANNUAL HEARING TETE DONALD 07/31 Released w/o Limitations [place] [id number] GABBI Self 08/16 Released w/o Limitations [place] [id number] xray f/u GABBI HERRERA 09/02 Released w/o Limitations [place] [id number] f/u FLAVIA SYKES 09/02 [place]ased [place]/o Lim[place] [id number] SPEC PER FLAVIA GUDINO 09/11 Released w/o Limitations [place] [id number] Pt. states R leg JEAN-PAUL DEL VALLE Almaz 09/12 Released with Work/Duty Limitations [place] [id number] cant sleep ELIGIOJEAN-PAUL Almaz 09/25 Released w/o Limitations [place] [id number] tendont ititis right knee [facility] 10/02 [place]ased [place] [id number] RIGHT KNEE INJECTI ON [facility] 10/03 Released w[place]o Limitations [place] [id number] initial COOPLELE P 10/04 Released w/o Limitations [place] [id number] f/up FLAVIA SYKES 10/10 [place]ased [place]/o Limitations [place] [id number] pt. states foot soles not johning GABBI HERRERA 10/10 [place]ased w/o Limitations [place] [id number] F/UP RIGHT KNEE INJECTI ON [facility] 10/17 Released w[place]o Limitations [place] [id number] Flat foot [pes planus] (acquir ed), unspeci fied foot AMAN MALAGON 10/22 Released w/o Limitations [place] [id number] pt. states f/u GABBI HERRERA 10/28 [place]ased w/o Limitations [place] TELE CONSULT [id number] Notes Entered by: JILLIAN MITCHELL 31 Oct 2017 1345 ------- ------- ------- ------- -- Peer Review for IB JILLIAN MITCHELL 10/31 [place] [id number] F/U per LELE Dickinson Bernadine 11/04 Released w/o Limitations [place] TELE CONSULT [id number] Notes Entered by: Maverick MUNIZ 07 Nov 2017 1036 ------- ------- ------- ------- -- PT WAS TOLD TO CALL FOR MRI RESULTS PT#[phone] GABBI HERRERA 11/07 [place] Sleep Disorder [facility]) OUTPATIENT [id number] Insomni a, unspeci fied, R/O GEENA RE SMALLWOOD 11/13 [place]ased w/o Limitations [place] Sleep Dis[facility]de [facility] TELE CONSULT [id number] Notes Entered by: Maverick MUNIZ 19 Nov 2017 1331 ------- ------- ------- ------- -- pt referra l to off post orthope dics was denied pt#[phone] GABBI HERRERA 11/19 [place] [id number] [facility]/21 [place]ased [place] [id number] referra l GABBI HERRERA 11/26 Released w/o Limitations [place] [id number] f/[facility]/05 [place]ased [place] Lim[place] [id number] ringing in ears GABBI HERRERA 12/06 Released w/o Limitations [place] Sleep Disorder Clinic) OUTPATIENT [id number] split night see notes 14feb EMELINA GOMEZ 12/12 Released w/o Limitations [place] Sleep Dis[facility]de [facility] [id number] f/u nose CHUNG DU 12/17 Released w/o Limitations [place] [id number] f/u LELE MCWILLIAMS 12/18 [place]ased w/o Limitations [place] [id number] TPI for neck pain [facility] 12/19 Released w/o Limitations [place] [id number] GABBI Marti 12/24 Released w/o Limitations [place] Sleep Disorder Clinic) OUTPATIENT [id number] Notes Entered by: Jesi PIERRE 25 Dec 2017 1700 ------- ------- ------- ------- -- PSG Interpr etation SAGAR PIERRE 12/25 Released w/o Limitations [place] Sleep Disorde [facility]) [place] [id number] FOLLOW UP [facility] 12/30 Released w/o Limitations [place] [id number] Encount er for screeni ng, unspeci TOMER Hudson 01/03 [place]ased w/o Limitations [place] TELE CONSULT [id number] Notes Entered by: Maverick MUNIZ 06 Jan 2018 1314 ------- ------- ------- ------- -- jaspal oconnor GABBI HERRERA 01/06 [place] [id number] neck pain/pe r [facility] 01/10 [place]ased w[place]o Limitations [place] [id number] ftr LEONIE HORN 01/14 [place]ased w/o Limitations [place] [id number] discuss referra l that was denied GABBI HERRERA 01/14 [place]ased w/o Limitations [place] TELE CONSULT [id number] [facility] 01/14 [place] [place] [id number] FOLLOW UP [facility] 01/16 Released w/o Limitations [place] [id number] f/u LELE MCWILLIAMS 01/21 Released w/o Limitations [place] [id number] f/u GABBI HERRERA 01/22 Released w/o Limitations [place] Sleep Disorder Clinic) OUTPATIENT [id number] follow up study results EMELINA GOMEZ Génesis 01/27 Released w/o Limitations [place] Sleep Disorde [facility] [id number] pt. states r knee GABBI HERRERA 01/28 Released w/o Limitations [place] TELE CONSULT [id number] Notes Entered by: Maverick MUNIZ 28 Jan 2018 1338 ------- ------- ------- ------- -- pt request a paper profile since Maverick-rosina mcfadden is down GABBI HERRERA 01/28 [place]IENT [id number] f/u ct scan CHUNG DU 01/30 Released w/o Limitations [place] [id number] SCOTT Goyal 02/12 [place] [id number] FOOT INSOLES , FOOT PAIN GABBI HERRERA 02/14 Released w/o Limitations [place] [id number] ftr LEOINE HORN 02/17 [place]ased w/o Limitations [place] OUTPATIENT [id number] aqua therapy [facility] 02/18 Released w[place]o Limitations [place] [id number] ftr HORN , LEONIE 02/19 [place]ased w/o Limitations [place] [id number] FOLLOW UP [facility] SALCEDO 02/19 [place]ased w/o [place]itations [place] [id number] aqua therapy [facility] 02/20 Released w/o Limitations [place] [id number] f/U on nose GABBI HERRERA 03/05 Released w/o Limitations [place] Physical Exam [facility] OUTPATIENT [id number] PHA UNDER 40/INS GIVE REF ON LINE SURVEY NOEMI BAPTISTE 03/06 [place]ased w/o Limitations [place] Phys[place] Exam Clinic[place]) [place] [id number] Pain in unspeci fied foot/Bi lateral 40 min LUZ HINOJOSA 03/07 Released w/o Limitations [place] OUTPATIENT [id number] SM [facility] F/U COOPLELE P 03/13 [place] [place]PAT[place] [id number] S/HEARI NG EXAM MAKENNA AGUILERA O 03/18 [place] OUTPATIENT [id number] FOLLOW UP RENAE ORTIZ 03/20 [place] [place] [id number] ELIANE Castellon 03/20 [place] [id number] ftr SCOTT REZA 03/28 [place]) [place] [id number] 2 week F/U LUZ Brown 03/28 [place] TELE CONSULT [id number] Notes Entered by: ME MAGED MCWILLIAMS P 28 Mar 2018 1813 ------- ------- ------- ------- -- Resched uling appt from 19JUL LELE MCWILLIAMS 03/28 [place] [place] [facility] [place] [facility] [place] OUTPATIENT [id number] h3,tinn ,resche [phone] SOLANGE GUAJARDO 04/01 [place]itations [place] [facility] [place]) [place] [id number] S/T KEYSSHELLYLORETTA Temple 04/02 [place] [id number] ftr SCOTT REZA 04/07 [place] [place] [id number] Segment al and somatic dysfunc tion of lumbar region AMAN MALAGON 04/09 [place] [id number] r SCOTT REZA 04/09 [place] [id number] r SCOTT REZA 04/11 [place] [id number] r SCOTT REZA 04/14 [place] [id number] Pain in left ankle and joints of left foot MICHAEL DENNIS 04/14 [place] [id number] Notes Entered by: Rosa Maria BETANCUR 15 Apr 2018 0748 ------- ------- ------- ------- -- 8:00 walk in Per LELE Dickinson P 04/15 [place] [place] [id number] SD 21 APRIL CHUNG DU P 04/15 [place] [id number] [facility] SCOTT REZA 04/16 [place]itations [place] [id number] [facility] SCOTT REZA 04/18 [place]itations [place] [id number] follow up MICHAEL DENNIS 04/29 [place] [id number] Allergi es/stuf GABBI Soto 05/08 [place] w/[place]itations [place] TELE CONSULT [id number] Notes Entered by: MICHAEL DENNIS 13 May 2018 1623 ------- ------- ------- ------- -- Consult MICHAEL DENNIS 05/13 [place] TELE CONSULT [id number] Notes Entered by: GABBI HERRERA 14 May 2018 0835 ------- ------- ------- ------- -- RAD FU GABBI HERRERA 05/14 [place] [place] [id number] f/up AMAN MALAGON 05/14 [place] [id number] f/u LELE MCWILLIAMS 05/19 [place]itations [place] TELE CONSULT [id number] Notes Entered by: ME MAGED MCWILLIAMS P 19 May 2018 1031 ------- ------- ------- ------- -- Sleep aid GABBI HERRERA 05/19 [place] [place]) [place] [id number] New Consult /New Isuue/R ight Foot-se e Consult LUZ HINOJOSA 05/20 [place] [id number] sleep meds GABBI HERRERA 05/20 [place]o [place]itations [place] [id number] follow up MICHAEL DENNIS 05/20 [place]itations [place] [id number] ftr SCOTT REZA 05/21 [place] [id number] ftr SCOTT REZA 05/23 [place]itations [place] [id number] f/u back pain GABBI HERRERA 05/23 [place]itations [place] [id number] r SCOTT REZA 05/26 [place]itations [place] [id number] r SCOTT REZA 05/28 [place]itations [place] [id number] F/U per LELE Brito 06/03 [place] w[place]o Limitations [place] TELE CONSULT [id number] Notes Entered by: ME MAGED MCWILLIAMS 03 Jun 2018 0854 ------- ------- ------- ------- -- Sleep aid not effecti ve GABBI HERRERA 06/03 [place] [place] [id number] GABBI Wbeb 06/03 [place]itations [place] [id number] profile and mri results GABBI HERRERA 06/04 [place]itations [place] [place] [id number] f/u after MRI LUZ HINOJOSA 06/11 Released with Work/Duty Limitations [place] TELE CONSULT [id number] Notes Entered by: Maverick MUNIZ 17 Jun 2018 0949 ------- ------- ------- ------- -- PT REQUEST CALL IN REF TO PROFILE FOR SURGERY GABBI HERRERA 06/17 [place] [facility] OUTPATIENT [id number] FOLLOW UP ELIAS FARLEY 06/18 [place]o [place]itations [place] [place] [id number] follow up MICHAEL DENNIS 06/20 [place]itations [place] [id number] wrist/e lbow pain CONRAD WILKES 06/25 [place] [facility] [place] TELE CONSULT [id number] Notes Entered by: LOUISE AHUMADA 27 Jun 2018 0921 ------- ------- ------- ------- -- MED REVIEW: POLYPHA RMACY [COHORT 5] SLY BARRY 06/27 Other Not Elsewhere Classified [place] [place]LE [place] [id number] Notes Entered by: ABRAHAM APONTE 01 Jul 2018 1552 ------- ------- ------- ------- -- Command er Request Speak with You LUZ HINOJOSA 07/01 [place] [id number] f/up for neck and back / Reasses sment from modalit ies SHARON SALCEDO 07/02 [place] [id number] f/U per LELE Dickinson 07/03 [place] w[place]o [place]itations [place] TELE CONSULT [id number] Notes Entered by: ME MAGED MCWILLIAMS 03 Jul 2018 1024 ------- ------- ------- ------- -- Medicat GABBI Cazares 07/03 [place] [place]) [place] [id number] Post Surgery Concern s (per Kapil Whitt) LUZ HINOJOSA 07/10 [place]itations [place] [facility] OUTPATIENT [id number] ftr JESICA MASON 07/11 [place]ased w[place]o Limitations [place] [place] [id number] per ms LELE Brito P 07/15 [place] w[place]o [place]itations [place]) [place] [id number] Discuss Surgery / Per LUZ Hall 07/15 [place]o [place]itations [place] [id number] Notes Entered by: Rosa Maria BETANCUR 17 Jul 2018 0944 ------- ------- ------- ------- -- walk in Alpha stem LELE MCWILLIAMS P 07/17 [place]itations [place] [id number] Notes Entered by: RosaM aria BETANCUR 18 Jul 2018 0938 ------- ------- ------- ------- -- 10:00/ alpha Stim LELE MCWILLIAMS P 07/18 [place]itations [place] [id number] Notes Entered by: Maverick MUNIZ 21 Jul 2018 1300 ------- ------- ------- ------- -- Alpha Stim LELE MCWILLIAMS P 07/21 [place]itations [place] [id number] GABBI Meehan 07/21 [place] w[place]o Limitations [place] [id number] f/u r foot LUZ HINOJOSA 07/22 [place]itations [place] [id number] FOLLOW UP SHARON SALCEDO 07/23 [place]itations [place] TELE CONSULT [id number] Notes Entered by: Maverick MUNIZ DNA E 23 Jul 2018 1100 ------- ------- ------- ------- -- profile concern s GABBI HERRERA 07/23 [place] [place] TELE CONSULT [id number] Notes Entered by: Maverick MUNIZ DNA E 25 Jul 2018 1008 ------- ------- ------- ------- -- PT STS HE HAS QUESTIO NS IN REF TO HIS MEB STATUS RAY FRIAS 07/25 [place] [facility] [place] [id number] Notes Entered by: Blake YOST 25 Jul 2018 1229 ------- ------- ------- ------- -- Readine Care Coordin OLIVIER Roberts 07/25 [place]itations [place] [facility] [place] [facility] OUTPAT[place] [id number] 8 ftr JESICA MASON 07/25 [place]ased w/o Limitations [place] [place] [id number] wrist pain/la teral epicond ylitis evaluat e and treat CONRAD WILKES 07/28 [place]itations [place] [facility] [place] [id number] Notes Entered by: Blake YOST 28 Jul 2018 0949 ------- ------- ------- ------- -- NCM referra l- 13ESC/ ankle pain CONSUELOMEHUL BEJARANO Codie 07/28 Released with Work/Duty Limitations [place] [id number] discuss MEB GABBI HERRERA 07/28 [place]/o Limitations [place] OUTPATIENT [id number] NECK AND BACK/PE R LEONIE TORRES 07/29 [place]itations [place] [id number] Notes Entered by: Maverick MUNIZ 30 Jul 2018 1007 ------- ------- ------- ------- -- Triage- --diarr ANGELA Hart 07/30 [place]itations [place] TELE CONSULT [id number] Notes Entered by: DIANA MASON 30 Jul 2018 1037 ------- ------- ------- ------- -- the patient called stated he was having side effects from the duloxet ine JESICA MASON 07/30 [place] [facility] [place] [id number] LILLIAM SETHI 07/30 [place] [id number] 5 [facility] 07/31 [place]ased w[place]o [place]itations [place]) [place] [id number] [facility] 08/05 Released w[place]o Limitations [place]) [place] [id number] 3 YOGA [facility] 08/07 [place]ased w[place]o [place]itations [place] [id number] follow up MICHAEL DENNIS 08/08 [place]itations [place] [id number] 8 POOL [facility] 08/12 [place]ased [place]o [place]itations [place] OUT[place] [id number] 2 FTR JESICA MASON 08/13 [place]ased w/o Limitations [place] [place] [id number] 2 Pt. states throwin g up/ Migrain e GABBI HERRERA 08/14 [place] [id number] 7 YOGA/NE CK PAIN [facility] , LEONIE 08/18 [place]o [place]itations [place] [id number] 8 POOL/NE CK PAIN [facility] , LEONIE 08/19 [place]ased [place]o [place]itations [place] [id number] 9 re-eval for lat epicond ylitis and wrist pain CONRAD WILKES 08/27 [place]o [place]itations [place] [facility] [place] [id number] 4 POOL/NE CK PAIN [facility] , LEONIE 08/28 [place]ased [place]o Limitations [place] [id number] bilat lat epic HELM, JEAN-PAUL K 08/29 [place]ased [place]o Limitations [place] [facility] [place] [id number] 3 MEB GABBI HERRERA 09/01 Released w/o Limitations [place] [id number] heel lift AMAN MALAGON 09/04 [place]o Limitations [place] [id number] 6 POOL/NE CK PAIN [facility] , LEONIE 09/04 [place]ased [place]/o Limitations [place] [id number] 6 bilat lat epic HELM, JEAN-PAUL K 09/05 [place]ased [place]o Limitations [place] [facility] [place] [place]IENT [id number] 8 bilat lat epic HEL, JEAN-PAUL K 09/10 [place]ased [place]o Limitations [place] [facility] [place] [id number] 5 POOL/NE CK PAIN [facility] , LEONIE 09/11 [place]ased w/o Limitations [place] [place]IENT [id number] 2 bilat lat epic HEL, JEAN-PAUL K 09/12 [place]ased w/o Limitations [place] [facility] [place] [id number] 3 FTR/PT. CM PARIKHMEN T THERAPY SHARON SALCEDO 09/17 [place]itations [place] [id number] BILATER AL ELBOW RE-CONRAD GARCIA 10/02 [place]ased w[place]o Limitations [place] [facility] [place] TELE CONSULT [id number] Notes Entered by: DENNIS WEINSTEIN 03 Oct 2018 1214 ------- ------- ------- ------- -- polypha rmacy cohort 6 RACHEL MOSS 10/03 [place] [facility] [place] [id number] f/u COLELE MA 10/14 [place]ased w/o Limitations [place]IENT [id number] pt. states f/u on back GABBI HERRERA 10/24 [place]ased w/o Limitations [place] [id number] follow up MICHAEL DENNIS 10/27 [place] [id number] 3 Osteoch ondriti s disseca ns, right ankle and joints of right foot/NA RSUM PER REYNA URENA 11/06 [place]ased w/o Limitations [place]PAT[place] [id number] Pain in unspeci fied shoulde LILLIAM Sanchez 11/20 [place]/o Limitations [place] [id number] 4 THROWIN G UP, DIARRHE A.... GABBI HERRERA 01/14 [place]Qu[place]PATIENT [id number] 2 THROWIN G UP,HEAD ACHES,D IARRHEA ..... GABBI HERRERA 01/21 [place]Qu[place] [id number] follow up MICHAEL DENNIS 01/30 [place] w[place]o [place]itations [place] [address] [place] [address])(Bas e Operation al Medicine Clin) OUTPATIENT [id number] 1 Civ pre-emp loyment phy//massey s LAKEISHA Nj 03/16 Released w/o Limitations [address] [place] [address])(B ase Operati onal Medicin e Clin) [address] [place] [address])([facility] e Operation [facility] Medicine Clin) OUTPATIENT [id number] preempl oyment physica l civilia n [phone] reminde d to bring LAKEISHA Nj 03/18 Released w/o Limitations [address] [place] [address])(B ase Operati onal Medicin e Clin) [address] [place] [address])(Bas e Operation al Medicine Clin) OUTPATIENT [id number] preempl oyment physcia l civilia n [phone] LAKEISHA WESLEY 03/22 Released w/o Limitations [address] [place] [address])(B ase Operati onal Medicin e Clin) [address] [place] [address])(Sco tt Flight Medicine Tm) OUTPATIENT [id number] 0 Civ Officer PT RICARDO Menchaca 01/26 Released w/o Limitations [address] [place] [address])(S cott Flight Medicin e Tm) [address] [place] [address])(Laura demic Virus) OUTPATIENT [id number] Notes Entered by: Génesis MITCHELL 30 Mar 2021 [facility] ------- ------- ------- ------- -- Travel/ Mil/375 SFS/Bio fire/ [place] ABHISHEK FONSECA 03/30 Released w/o Limitations [address] [place] [address] Group Dami [place] [place]P and[place]) [address] [place] [address] Dami CASTILLO [place] [place]co [facility] Medicine Tm[place] OUTPATIENT [id number] 3 Nehemiahclarence gladys/ civ copywriter ALBANIARICARDO 05/24 Released w/o Limitations [address] [place] [address] Group Dami HALEB [place] [place] Flight Medicin e Tm) [facility] Outpatient Encounter [id number] Maverick CORADO 01/23 [facility] Outpatient Encounter [id number] Maverick CORADO 03/09 [facility]/P EST MOD 30 MIN [id number] [id number] Diagnos is: ICD-10- CM M25.571 Pain in right ankle and joints of right foot OWEN VILLAVICENCIO 03/10 [facility] PSYTX W PT 30 MINUTES 18558-8.65 [id number] Diagnos is: ICD-10- CM F43.20 Adjustm ent disorde r, unspeci Codie Longo 08/12 [facility] CB PSYTX W PT 30 MINUTES [id number] [id number] Diagnos is: ICD-10- CM F41.1 General ized anxiety disorde Codie Bhatia 09/08 [facility] Outpatient Encounter [id number] KASSIDY LAMB 09/11 [facility] PSYTX W PT 30 MINUTES [id number] [id number] Diagnos is: ICD-10- CM F41.1 General ized anxiety disorde r JHONNYCodie 09/29 [facility] PSYTX W PT 60 MINUTES 07081-7.65 [id number] Diagnos is: ICD-10- CM F33.1 Major depress durga disorde r, recurre nt, moderat e ALEXYMATT RACHEL Mackay 10/01 [facility] PSYCHOTHER APY [id number] [id number] Diagnos is: ICD-10- CM F32.A Depress ion, unspeci fied CHENTE,SHE LBY L 12/09 [facility] PSYCHOTHER APY [id number] Diagnos is: ICD-10- CM F32.A Depress ion, unspeci fied CHENTE,SHE LBY L 12/16 [facility] PSYCHOTHER APY [id number] Diagnos is: ICD-10- CM F43.21 Adjustm ent disorde r with depress ed mood CHENTE,SHE LBY L 12/30 [facility] PSYCHOTHER APY [id number] Diagnos is: ICD-10- CM F43.21 Adjustm ent disorde r with depress ed mood CHENTE,SHE LBY L 01/06 [facility] PSYCHOTHER APY [id number] [id number] Diagnos is: ICD-10- CM F43.21 Adjustm ent disorde r with depress ed mood CHENTE,SHE LBY L 01/13 [facility] PSYCHOTHER APY [id number] Diagnos is: ICD-10- CM F43.21 Adjustm ent disorde r with depress ed mood CHENTE,SHE LBY L 01/20 [facility] CASE MANAGEMENT [id number] Diagnos is: ICD-10- CM Z65.3 Problem s related to other legal circums tances ISAIASODALIS WOOD 01/20 [facility] PT EDUCATION NOC INDIVID [id number] [id number] Diagnos is: ICD-10- CM Z65.3 Problem s related to other legal circums tances ODALIS ESPARZA 01/27 [facility] Outpatient Encounter [id number] CHENTE,SHE LBY L 01/27 [facility] Outpatient Encounter [id number] 01/28 [facility] Outpatient Encounter [id number] ISAIASODALIS Maverick 02/01 [facility] PH1 ASSMT&MGMT NQHP 5-10 [id number] [id number] Diagnos is: ICD-10- CM Z63.0 Problem s in relatio nship with spouse or partner LEROY ESPINO 02/01 [facility] GROUP PSYCHOTHER APY [id number] Diagnos is: ICD-10- CM F43.21 Adjustm ent disorde r with depress ed mood CHENTE,SHE LBY L 02/03 [facility]Y [id number] Diagnos is: ICD-10- CM F43.21 Adjustm ent disorde r with depress ed mood CHENTE,SHE LBY L 02/10 [facility] APY [id number] Diagnos is: ICD-10- CM F43.21 Adjustm ent disorde r with depress ed mood CHENTE,SHE LBY L 02/17 [facility] Procedures Combined list of: 1) Procedures from Department of [facility] facilities going back up to thelast 18 months, not all MD non-surgical procedures are included; 2) All procedures from the Department of Defense facilities. Procedure Procedure Type Code Date Perfomer Comments [facility] e HEPATITIS A AND HEPATITIS B VACCINE (HEPA-HEPB), ADULT DOSAGE, FOR INTRAMUSCULAR USE 016 [facility] TETANUS, DIPHTHERIA TOXOIDS AND ACELLULAR PERTUSSIS VACCINE (TDAP), WHEN ADMINISTERED TO INDIVIDUALS 7 YEARS OR OLDER, FOR INTRAMUSCULAR USE 016 [facility] PATIENT EDUCATION, NOT OTHERWISE CLASSIFIED, NON-PHYSICIAN PROVIDER, GROUP, PER SESSION 016 [facility] HANDLING AND/OR CONVEYANCE OF SPECIMEN FOR TRANSFER FROM THE OFFICE TO A LABORATORY 016 [facility] OPHTHALMOLOGICAL SERVICES: MEDICAL EXAMINATION AND EVALUATION WITH INITIATION OF DIAGNOSTIC AND TREATMENT PROGRAM; COMPREHENSIVE, NEW PATIENT, 1 OR MORE VISITS 016 [facility] ADMINISTRATION OF PATIENT-FOCUSED HEALTH RISK ASSESSMENT INSTRUMENT (EG, HEALTH HAZARD APPRAISAL) WITH SCORING AND DOCUMENTATION, PER STANDARDIZED INSTRUMENT 021 [facility] ACUPUNCTURE, 1/MORE NEEDLES; WO ELECTRICAL STIMULATION, EA ADDITIONAL 15 MINUTES, PERSONAL ONE-ON-ONE CONTACT W THE PATIENT, W RE-INSERTION, NEEDLE(S) (LIST SEPARATELY ADDITION CODE, 1 PROCEDURE) 019 [facility] BRIEF EMOTIONAL/BEHAVIORAL ASSESSMENT (EG, DEPRESSION INVENTORY, ATTENTION-DEFICIT/HY PERACTIVITY DISORDER [ADHD] SCALE), WITH SCORING AND DOCUMENTATION, PER STANDARDIZED INSTRUMENT [facility] RE-EVALUATION OF OCCUPATIONAL THERAPY ESTABLISHED PLAN OF CARE,REQ:ASSESS CHANGES IN PAT FUNCT/MED STATUS W REVISED PLAN OF CARE;TYPICALLY, 30 MINUTES ARE SPENT [id number] WITH THE PATIENT &/FAMILY [facility] APPLICATION OF A MODALITY TO 1 OR MORE AREAS; HOT OR COLD PACKS [facility] THERAPEUTIC PROCEDURE(S), GROUP (2 OR MORE INDIVIDUALS) [facility] BRIEF EMOTIONAL/BEHAVIORAL ASSESSMENT (EG, DEPRESSION INVENTORY, ATTENTION-DEFICIT/HY PERACTIVITY DISORDER [ADHD] SCALE), WITH SCORING AND DOCUMENTATION, PER STANDARDIZED INSTRUMENT [facility] APPLICATION OF A MODALITY TO 1 OR MORE AREAS; HOT OR COLD PACKS [facility] APPLICATION OF A MODALITY TO 1 OR MORE AREAS; HOT OR COLD PACKS [facility] THERAPEUTIC PROCEDURE(S), GROUP (2 OR MORE INDIVIDUALS) [facility] ORTHOTIC(S)/PROSTHET IC(S) MANAGEMENT AND/OR TRAINING, UPPER EXTREMITY(IES), LOWER EXTREMITY(IES), AND/OR TRUNK, SUBSEQUENT ORTHOTIC(S)/PROSTHET IC(S) ENCOUNTER, EACH 15 MINUTES [facility] APPLICATION OF A MODALITY TO 1 OR MORE AREAS; HOT OR COLD PACKS [facility] THERAPEUTIC PROCEDURE(S), GROUP (2 OR MORE INDIVIDUALS) [facility] APPLICATION OF A MODALITY TO 1 OR MORE AREAS; HOT OR COLD PACKS [facility] THERAPEUTIC PROCEDURE(S), GROUP (2 OR MORE INDIVIDUALS) [facility] THERAPEUTIC PROCEDURE(S), GROUP (2 OR MORE INDIVIDUALS) [facility] MEDICATION THERAPY MGT SERVICE(S) PROVIDED,A PHARMACIST,INDIV,FAC E-TO-FACE W PATIENT,WITH ASSESS & INTERVENE IF PROVIDED;EA ADDITION 15 MINUTES (LIST SEPARATELY IN ADDITION TO CODE FOR PRIM SERVICE) [facility] THERAPEUTIC PROCEDURE(S), GROUP (2 OR MORE INDIVIDUALS) [facility] THERAPEUTIC PROCEDURE(S), GROUP (2 OR MORE INDIVIDUALS) [facility] THERAPEUTIC PROCEDURE(S), GROUP (2 OR MORE INDIVIDUALS) [facility] THERAPEUTIC PROCEDURE(S), GROUP (2 OR MORE INDIVIDUALS) [facility] THERAPEUTIC PROCEDURE(S), GROUP (2 OR MORE INDIVIDUALS) [facility] STRAPPING; ELBOW OR WRIST [facility] MEDICATION THERAPY MGT SERVICE(S) PROVIDED,A PHARMACIST,INDIV,FAC E-TO-FACE W PATIENT,WITH ASSESS & INTERVENE IF PROVIDED;EA ADDITION 15 MINUTES (LIST SEPARATELY IN ADDITION TO CODE FOR PRIM SERVICE) [facility] CASE MANAGEMENT, EACH 15 MINUTES [facility] APPLICATION OF A MODALITY TO 1 OR MORE AREAS; ELECTRICAL STIMULATION (UNATTENDED) [facility] HEALTH AND BEHAVIOR INTERVENTION, EACH 15 MINUTES, [id number]; INDIVIDUAL [facility] BRIEF EMOTIONAL/BEHAVIORAL ASSESSMENT (EG, DEPRESSION INVENTORY, ATTENTION-DEFICIT/HY PERACTIVITY DISORDER [ADHD] SCALE), WITH SCORING AND DOCUMENTATION, PER STANDARDIZED INSTRUMENT [facility] APPLICATION OF A MODALITY TO 1 OR MORE AREAS; ELECTRICAL STIMULATION (UNATTENDED) [facility] APPLICATION OF A MODALITY TO 1 OR MORE AREAS; ELECTRICAL STIMULATION (MANUAL), EACH 15 MINUTES [facility] MEDICATION THERAPY MGT SERVICE(S) PROVIDED,A PHARMACIST,INDIV,FAC E-TO-FACE W PATIENT,WITH ASSESS & INTERVENE IF PROVIDED;EA ADDITION 15 MINUTES (LIST SEPARATELY IN ADDITION TO CODE FOR PRIM SERVICE) [facility] BRIEF EMOTIONAL/BEHAVIORAL ASSESSMENT (EG, DEPRESSION INVENTORY, ATTENTION-DEFICIT/HY PERACTIVITY DISORDER [ADHD] SCALE), WITH SCORING AND DOCUMENTATION, PER STANDARDIZED INSTRUMENT [facility] OCCUPATIONAL THERAPY EVALUATION, MODERATE COMPLEXITY,REQ:OCCUP PROF &MED &THER HIST;ASSESS,3-5 PERF DEF;CLIN DECIS MAKING MOD COMPLEXITY,TYPICALLY ,45 MIN ARE SPENT [id number] W THE PATIENT &/FAMILY [facility] BRIEF EMOTIONAL/BEHAVIORAL ASSESSMENT (EG, DEPRESSION INVENTORY, ATTENTION-DEFICIT/HY PERACTIVITY DISORDER [ADHD] SCALE), WITH SCORING AND DOCUMENTATION, PER STANDARDIZED INSTRUMENT [facility] CHIROPRACTIC MANIPULATIVE TREATMENT (CMT); EXTRASPINAL, 1 OR MORE REGIONS [facility] CHIROPRACTIC MANIPULATIVE TREATMENT (CMT); EXTRASPINAL, 1 OR MORE REGIONS [facility] CHIROPRACTIC MANIPULATIVE TREATMENT (CMT); EXTRASPINAL, 1 OR MORE REGIONS [facility] CHIROPRACTIC MANIPULATIVE TREATMENT (CMT); EXTRASPINAL, 1 OR MORE REGIONS [facility] BRIEF EMOTIONAL/BEHAVIORAL ASSESSMENT (EG, DEPRESSION INVENTORY, ATTENTION-DEFICIT/HY PERACTIVITY DISORDER [ADHD] SCALE), WITH SCORING AND DOCUMENTATION, PER STANDARDIZED INSTRUMENT [facility] LIFT, ELEVATION, HEEL, PER INCH [facility] UNLISTED SPECIAL SERVICE, PROCEDURE OR REPORT [facility] CHIROPRACTIC MANIPULATIVE TREATMENT (CMT); EXTRASPINAL, 1 OR MORE REGIONS [facility] CHIROPRACTIC MANIPULATIVE TREATMENT (CMT); EXTRASPINAL, 1 OR MORE REGIONS [facility] BRIEF EMOTIONAL/BEHAVIORAL ASSESSMENT (EG, DEPRESSION INVENTORY, ATTENTION-DEFICIT/HY PERACTIVITY DISORDER [ADHD] SCALE), WITH SCORING AND DOCUMENTATION, PER STANDARDIZED INSTRUMENT [facility] CHIROPRACTIC MANIPULATIVE TREATMENT (CMT); EXTRASPINAL, 1 OR MORE REGIONS [facility] APPLICATION OF A MODALITY TO 1 OR MORE AREAS; ELECTRICAL STIMULATION (MANUAL), EACH 15 MINUTES [facility] CHIROPRACTIC MANIPULATIVE TREATMENT (CMT); EXTRASPINAL, 1 OR MORE REGIONS [facility] LIFT, ELEVATION, HEEL, PER INCH [facility] CHIROPRACTIC MANIPULATIVE TREATMENT (CMT); EXTRASPINAL, 1 OR MORE REGIONS [facility] SPECIAL REPORTS SUCH INSURANCE FORMS, MORE THAN THE INFORMATION CONVEYED IN THE USUAL MEDICAL COMMUNICATIONS OR STANDARD REPORTING FORM [facility] CHIROPRACTIC MANIPULATIVE TREATMENT (CMT); SPINAL, 3-4 REGIONS [facility] DETERMINATION OF REFRACTIVE STATE [facility] AUDIOMETRIC TESTING OF GROUPS [facility] EAR MOLD/INSERT, NOT DISPOSABLE, ANY TYPE [facility] BRIEF EMOTIONAL/BEHAVIORAL ASSESSMENT (EG, DEPRESSION INVENTORY, ATTENTION-DEFICIT/HY PERACTIVITY DISORDER [ADHD] SCALE), WITH SCORING AND DOCUMENTATION, PER STANDARDIZED INSTRUMENT [facility] SCREENING TEST OF VISUAL ACUITY, QUANTITATIVE, BILATERAL [facility] THERAPEUTIC PROCEDURE(S), GROUP (2 OR MORE INDIVIDUALS) [facility] THERAPEUTIC PROCEDURE(S), GROUP (2 OR MORE INDIVIDUALS) [facility] THERAPEUTIC PROCEDURE(S), GROUP (2 OR MORE INDIVIDUALS) [facility] THERAPEUTIC PROCEDURE(S), GROUP (2 OR MORE INDIVIDUALS) [facility] ANTHRAX VACCINE, FOR SUBCUTANEOUS OR INTRAMUSCULAR USE [facility] CHIROPRACTIC MANIPULATIVE TREATMENT (CMT); EXTRASPINAL, 1 OR MORE REGIONS [facility] BRIEF EMOTIONAL/BEHAVIORAL ASSESSMENT (EG, DEPRESSION INVENTORY, ATTENTION-DEFICIT/HY PERACTIVITY DISORDER [ADHD] SCALE), WITH SCORING AND DOCUMENTATION, PER STANDARDIZED INSTRUMENT [facility] THERAPEUTIC PROCEDURE(S), GROUP (2 OR MORE INDIVIDUALS) [facility] THERAPEUTIC PROCEDURE(S), GROUP (2 OR MORE INDIVIDUALS) [facility] DISTORTION PRODUCT EVOKED OTOACOUS EMISSIONS;LIMITED EVALUATION (TO CONFIRM THE PRESENCE/ABSENCE OF HEARING DISORDER,3-6 FREQUENCIES)/TRANSIE NT EVOKED OTOACOUS EMISSIONS,W INTERPRETATION &REPORT [facility] POLYSOMNOGRAPHY; AGE 8 YEARS OR OLDER, SLEEP STAGING WITH 4 OR MORE ADDITIONAL PARAMETERS OF SLEEP, ATTENDED BY A TECHNOLOGIST [facility] INJECTION(S); SINGLE OR MULTIPLE TRIGGER POINT(S), 3 OR MORE MUSCLES [facility] BRIEF EMOTIONAL/BEHAVIORAL ASSESSMENT (EG, DEPRESSION INVENTORY, ATTENTION-DEFICIT/HY PERACTIVITY DISORDER [ADHD] SCALE), WITH SCORING AND DOCUMENTATION, PER STANDARDIZED INSTRUMENT [facility] POLYSOMNOGRAPHY; AGE 8 YEARS OR OLDER, SLEEP STAGING WITH 4 OR MORE ADDITIONAL PARAMETERS OF SLEEP, ATTENDED BY A TECHNOLOGIST [facility] ARTHROCENTESIS, ASPIRATION AND/OR INJECTION, MAJOR JOINT OR BURSA (EG, SHOULDER, HIP, KNEE, SUBACROMIAL BURSA); WITH ULTRASOUND GUIDANCE, WITH PERMANENT RECORDING AND REPORTING [facility] PHYS/OTH QUALIFIED HEALTH REGIONAL SALES LEADER QUALIFIED,EDUCATION, TRAIN,LICENSURE/REGU LATION (WHEN APPLICABLE) EDUC SER RENDERED TO PATS IN A GRP SETTING (EG,,OBESITY ,OR DIABETIC INSTRUCT) [facility] BRIEF EMOTIONAL/BEHAVIORAL ASSESSMENT (EG, DEPRESSION INVENTORY, ATTENTION-DEFICIT/HY PERACTIVITY DISORDER [ADHD] SCALE), WITH SCORING AND DOCUMENTATION, PER STANDARDIZED INSTRUMENT [facility] PSYCHIATRIC EVALUATION OF HOSPITAL RECORDS, OTHER PSYCHIATRIC REPORTS, PSYCHOMETRIC AND/OR PROJECTIVE TESTS, AND OTHER ACCUMULATED DATA FOR MEDICALDIAGNOSTIC PURPOSES [facility] IMMUNIZATION ADMINISTRATION (INCLUDES PERCUTANEOUS, INTRADERMAL, SUBCUTANEOUS, OR INTRAMUSCULAR INJECTIONS); 1 VACCINE (SINGLE OR COMBINATION VACCINE/TOXOID) [facility] ORTHOTIC(S) MANAGEMENT AND TRAINING (INCLUDING ASSESSMENT AND FITTING WHEN NOT OTHERWISE REPORTED),UPPER EXTREMITY(IES),LOWER EXTREMITY(IES) AND/OR TRUNK,INITIAL ORTHOTIC(S) ENCOUNTER,EACH 15 MINUTES [facility] RE-EVAL,PHYSICAL THERAPY EST PLAN OF CARE,REQ:EXAM,REV,HX & USE,STAND TESTS &KAYLA REQ;REV PLAN OF CARE USING STAND PAT ASSESS INSTR &/KAYLA ASSESS FUNC OUTCOME TYP,20 MIN SPENT [id number] W PAT&/FAM [facility] BRIEF EMOTIONAL/BEHAVIORAL ASSESSMENT (EG, DEPRESSION INVENTORY, ATTENTION-DEFICIT/HY PERACTIVITY DISORDER [ADHD] SCALE), WITH SCORING AND DOCUMENTATION, PER STANDARDIZED INSTRUMENT [facility] ARTHROCENTESIS, ASPIRATION AND/OR INJECTION, MAJOR JOINT OR BURSA (EG, SHOULDER, HIP, KNEE, SUBACROMIAL BURSA); WITH ULTRASOUND GUIDANCE, WITH PERMANENT RECORDING AND REPORTING [facility] THERAPEUTIC ACTIVITIES, DIRECT (ONE-ON-ONE) PATIENT CONTACT (USE OF DYNAMIC ACTIVITIES TO IMPROVE FUNCTIONAL PERFORMANCE), EACH 15 MINUTES [facility] THERAPEUTIC PROCEDURE, 1 OR MORE AREAS, EACH 15 MINUTES; THERAPEUTIC EXERCISES TO DEVELOP STRENGTH AND ENDURANCE, RANGE OF MOTION AND FLEXIBILITY [facility] EAR MOLD/INSERT, NOT DISPOSABLE, ANY TYPE [facility] THERAPEUTIC PROCEDURE, 1 OR MORE AREAS, EACH 15 MINUTES; THERAPEUTIC EXERCISES TO DEVELOP STRENGTH AND ENDURANCE, RANGE OF MOTION AND FLEXIBILITY [facility] INJECTION, DEXAMETHASONE SODIUM PHOSPHATE, 1 MG [facility] POSTOPERATIVE FOLLOW-UP VISIT, NORMALLY INCLUDED IN THE SURGICAL PACKAGE, INDICATE THAT EVALUATION & MANAGEMENT SERVICE WAS PERFORMED DURING A POSTOPERATIVE PERIOD REASON RELATED ORIGINAL PROCEDURE [facility] POSTOPERATIVE FOLLOW-UP VISIT, NORMALLY INCLUDED IN THE SURGICAL PACKAGE, INDICATE THAT EVALUATION & MANAGEMENT SERVICE WAS PERFORMED DURING A POSTOPERATIVE PERIOD REASON RELATED ORIGINAL PROCEDURE [facility] UNLISTED SPECIAL SERVICE, PROCEDURE OR REPORT [facility] NASAL ENDOSCOPY, DIAGNOSTIC, UNILATERAL OR BILATERAL (SEPARATE PROCEDURE) [facility] PHYSICAL OR MANIPULATIVE THERAPY PERFORMED FOR MAINTENANCE RATHER THAN JAINISM [facility] THERAPEUTIC PROCEDURE, 1 OR MORE AREAS, EACH 15 MINUTES; THERAPEUTIC EXERCISES TO DEVELOP STRENGTH AND ENDURANCE, RANGE OF MOTION AND FLEXIBILITY [facility] THERAPEUTIC PROCEDURE, 1 OR MORE AREAS, EACH 15 MINUTES; THERAPEUTIC EXERCISES TO DEVELOP STRENGTH AND ENDURANCE, RANGE OF MOTION AND FLEXIBILITY [facility] THERAPEUTIC PROCEDURE(S), GROUP (2 OR MORE INDIVIDUALS) [facility] THERAPEUTIC PROCEDURE(S), GROUP (2 OR MORE INDIVIDUALS) [facility] THERAPEUTIC PROCEDURE,1 OR MORE AREAS,EACH 15 MINUTES;NEUROMUSCULA R REEDUCATION OF MOVEMENT,BALANCE,SUPERVISOR RIVETING RDINATION,KINESTHETI C SENSE,POSTURE,AND/OR PROPRIOCEPTION FOR SITTING AND/OR STANDING ACTIVITIES [facility] HEPATITIS A AND HEPATITIS B VACCINE (HEPA-HEPB), ADULT DOSAGE, FOR INTRAMUSCULAR USE [facility] PERCUTANEOUS TESTS (SCRATCH, PUNCTURE, PRICK) WITH ALLERGENIC EXTRACTS, IMMEDIATE TYPE REACTION, INCLUDING TEST INTERPRETATION AND REPORT, SPECIFY NUMBER OF TESTS [facility] DETERMINATION OF REFRACTIVE STATE [facility] PSYCHIATRIC DIAGNOSTIC EVALUATION [facility] INFLUENZA VIRUS VACCINE, TRIVALENT (IIV3), SPLIT VIRUS, PRESERVATIVE FREE, 0.5 ML DOSAGE, FOR INTRAMUSCULAR USE 017 [facility] Acupunct One Or More Campbell W/O Stimulation Initial 15 Min Acupunct One Or More Campbell W/O Stimulation Initial 15 Min [id number] LILLIAM WALL [facility] Acupunct One/More Campbell W/O Stim Addl 15 Min W/ Reinsert Acupunct One/More Campbell W/O Stim Addl 15 Min W/ Reinsert [id number] [id number] LILLIAM WALL [facility] Health And Behav A e mt Each 15 Min Pamela e ment Health And Behav Assessmt Each 15 Min Reassessment [id number] LELE MCWILLIAMS [facility] Occupational Therapy Re-Evaluation Occupational Therapy Re-Evaluation [id number] CONRAD WILKES [facility] Modalities Cryotherapy Cold Packs Modalities Cryotherapy Cold Packs [phone] HELM, JEAN-PAUL K 10 MIN FOR ICE MASSAGE. DoD Injection, dexamethasone sodium phosphate, 1 mg 018 HELM, JEAN-PAUL K 1.5 CC DEXAMETHASONE USED DURING [place]. Do[facility] Modalities Iontophoresis Modalities Iontophoresis [id number] [id number] HELM, JEAN-PAUL K 30 MIN FOR CONSTANT VISUAL ATTENDENCE [place]. [facility] Physical Medicine - Group Physical Therapy Se ion Physical Medicine - Group Physical Therapy Session [id number] 018 LEONIE HORN DoD Acid Operator Ed Checkout For Ortho/Prosth Use Estab Patient Acid Operator Ed Checkout For Ortho/Prosth Use Estab Patient [id number] [phone] AMAN MALAGON DoD Social Work Individual Outpatient Counseling 20-30 Minutes Social Work Individual Outpatient Counseling 20-30 Minutes [id number] [id number] LUCI CISNEROS Do[facility] Modalities Cryotherapy Cold Packs Modalities Cryotherapy Cold Packs [id number] 018 HELM, JEAN-PAUL K 10 MIN FOR ICE MASSAGE TO BILATERAL ELBOWS. DoD Injection, dexamethasone sodium phosphate, 1 mg 018 HELM, JEAN-PAUL K 3 TOTAL CC DEXAMETHASONE USED DURING [place]. 1.5 CC USED PER [place] SITE. DoD Modalities Iontophoresis Modalities Iontophoresis [phone] HELM, JEAN-PAUL K 30 MIN FOR CONSTANT VISUAL ATTENDENCE [place]. DoD Injection, dexamethasone sodium phosphate, 1 mg 018 HELM, JEAN-PAUL K 3 TOTAL CC DEXAMETHASONE USED DURING [place]. 1.5 CC USED PER [place] SITE. DoD Modalities Cryotherapy Cold Packs Modalities Cryotherapy Cold Packs [phone] HELM, JEAN-PAUL K 10 MIN FOR ICE MASSAGE. DoD Modalities Iontophoresis Modalities Iontophoresis [phone] HELM, JEAN-PAUL K 30 MIN FOR CONSTANT VISUAL ATTENDENCE [place]. [facility] Physical Medicine - Group Physical Therapy Se ion Physical Medicine - Group Physical Therapy Session [id number] 018 LEONIE HORN [facility] Modalities Cryotherapy Cold Packs Modalities Cryotherapy Cold Packs [phone] HELM, JEAN-PAUL K ICE MASSAGE PERFORMED DURING EDUCATION. DoD Patient Counseling Medical Management Individual Patient Patient Counseling Medical Management Individual Patient [phone] JEAN-PAUL GORDON 10 MIN SM EDUCATION. [facility] Injection, dexamethasone sodium phosphate, 1 mg 018 JEAN-PAUL GORDON 1.5 CC DEXAMETHASONE USED DURING [place]. [facility] Modalities Iontophoresis Modalities Iontophoresis 01496 018 JEAN-PAUL GORDON 30 MIN FOR CONSTANT VISUAL ATTENDENCE [place]. [facility] Physical Medicine - Group Physical Therapy Se ion Physical Medicine - Group Physical Therapy Session [phone] [facility] Modalities Cryotherapy Cold Packs Modalities Cryotherapy Cold Packs [phone] CONRAD WILKES [facility] Injection, dexamethasone sodium phosphate, 1 mg 018 CONRAD WILKES [facility] Modalities Iontophoresis Modalities Iontophoresis 75554 018 CHUNG CONRAD KARMEN [facility] Occupational Therapy Re-Evaluation Occupational Therapy Re-Evaluation 44013 018 RENAE WILKESY KARMEN [facility] Physical Medicine - Group Physical Therapy Se ion Physical Medicine - Group Physical Therapy Session [id number] 018 [facility] Physical Medicine - Group Physical Therapy Se ion Physical Medicine - Group Physical Therapy Session 83829 018 [facility] Medication Management By Pharmacist Each Additional 15 Min Medication Management By Pharmacist Each Additional 15 Min [id number] [id number] JESICA MASON [facility] Med Management By Pharmacist Initial 15 Min Estab Patient Med Management By Pharmacist Initial 15 Min Estab Patient [phone] JESICA MASON [facility] Physical Medicine - Group Physical Therapy Se ion Physical Medicine - Group Physical Therapy Session 63839 018 [facility] Physical Medicine - Group Physical Therapy Se ion Physical Medicine - Group Physical Therapy Session [id number] 018 [facility] Physical Medicine - Group Physical Therapy Se ion Physical Medicine - Group Physical Therapy Session [id number] 018 [facility] Physical Medicine - Group Physical Therapy Se ion Physical Medicine - Group Physical Therapy Session [id number] 018 [facility] Physical Medicine - Group Physical Therapy Se ion Physical Medicine - Group Physical Therapy Session 02254 018 [facility] Medication Management By Pharmacist Each Additional 15 Min Medication Management By Pharmacist Each Additional 15 Min [id number] JESICA MASON [facility] Med Management By Pharmacist Initial 15 Min Estab Patient Med Management By Pharmacist Initial 15 Min Estab Patient [id number] JESICA MASON [facility] Orthopedic Strapping [place] Orthopedic Strapping [place] 79717 CONRAD WILKES [facility] Occupational Therapy Re-Evaluation Occupational Therapy Re-Evaluation 57152 CONRAD WILKES [facility] Case Management, each 15 minutes OLIVIER YOST [facility] Modalities Electrical Stimulation Unattended Modalities Electrical Stimulation Unattended [id number] COOP, LELE P DoD Modalities Electrical Stimulation Modalities Electrical Stimulation 28922 COOP, LEEL P DoD Health And Behavior Intervention, Each 15 Minutes Individual Health And Behavior Intervention, Each 15 Minutes Individual 92069 COOP, LELE P DoD Modalities Electrical Stimulation Unattended Modalities Electrical Stimulation Unattended 18141 COOP, LELE P DoD Modalities Electrical Stimulation Modalities Electrical Stimulation 06140 COOP, LELE P DoD Health And Behavior Intervention, Each 15 Minutes Individual Health And Behavior Intervention, Each 15 Minutes Individual 74869 COOP, LELE P DoD Modalities Electrical Stimulation Unattended Modalities Electrical Stimulation Unattended [id number] COOP, LELE P DoD Modalities Electrical Stimulation Modalities Electrical Stimulation 71693 COOP, LELE P DoD Health And Behavior Intervention, Each 15 Minutes Individual Health And Behavior Intervention, Each 15 Minutes Individual 61681 COOP, LELE P DoD Psychiatric Therapy Individual Approximately 20-30 Minutes Psychiatric Therapy Individual Approximately 20-30 Minutes [id number] BEN GODFREY DoD Modalities Electrical Stimulation Attended Each 15 Minutes Modalities Electrical Stimulation Attended Each 15 Minutes [id number] COOP, LELE P DoD Modalities Electrical Stimulation Device Placement Modalities Electrical Stimulation Device Placement [id number] COOP, LELE P DoD Modalities Electrical Stimulation Modalities Electrical Stimulation 01043 COOP, LELE P DoD Health And Behav A e mt Each 15 Min Initial A e ment Health And Behav Assessmt Each 15 Min Initial Assessment [id number] 018 LELE MCWILLIAMS [facility] Medication Management By Pharmacist Each Additional 15 Min Medication Management By Pharmacist Each Additional 15 Min [phone] JESICA MASON [facility] Med Management By Pharmacist Initial 15 Min New Patient Med Management By Pharmacist Initial 15 Min New Patient [phone] JESICA MASON [facility] Health And Behav A e mt Each 15 Min Pamela e ment Health And Behav Assessmt Each 15 Min Reassessment 78698 018 LELE MCWILLIAMS [facility] Health And Behav A e mt Each 15 Min Pamela e ment Health And Behav Assessmt Each 15 Min Reassessment 27469 018 LELE MCWILLIAMS Chiropractic Manip Treatmt (CMT) Extraspinal One Or More Reg Chiropractic Manip Treatmt (CMT) Extraspinal One Or More Reg 00038 018 SCOTT REZA [facility] Chiropractic Manip Treatmt (CMT) Spinal Three [place] Region Chiropractic Manip Treatmt (CMT) Spinal [place] 91486 018 SCOTT REZA [facility] Chiropractic Manip Treatmt (CMT) Extraspinal One Or More Reg Chiropractic Manip Treatmt (CMT) Extraspinal One Or More Reg 13513 018 SCOTT REZA [facility] Chiropractic Manip Treatmt (CMT) Spinal [place] Chiropractic Manip Treatmt (CMT) Spinal [place] 26521 018 SCOTT REZA [facility] Chiropractic Manip Treatmt (CMT) Extraspinal One Or More Reg Chiropractic Manip Treatmt (CMT) Extraspinal One Or More Reg 68621 018 SCOTT REZA [facility] Chiropractic Manip Treatmt (CMT) Spinal [place] Chiropractic Manip Treatmt (CMT) Spinal [place] 20680 018 SCOTT REZA [facility] Chiropractic Manip Treatmt (CMT) Extraspinal One Or More Reg Chiropractic Manip Treatmt (CMT) Extraspinal One Or More Reg 09579 018 SCOTT REZA [facility] Chiropractic Manip Treatmt (CMT) Spinal [place] Chiropractic Manip Treatmt (CMT) Spinal [place] 64807 018 SCOTT REZA [facility] Health And Behav A e mt Each 15 Min Pamela e ment Health And Behav Assessmt Each 15 Min Reassessment 52216 018 LELE MCWILLIAMS [facility] Acid Operator Ed Checkout For Ortho/Prosth Use Estab Patient Acid Operator Ed Checkout For Ortho/Prosth Use Estab Patient 21095 018 AMAN MALAGON DoD Lift, elevation, heel, per inch 018 AMAN MALAGON 3 Ea. Lifts Left 10/01 used a firmer crepe [facility] Chiropractic Manip Treatmt (CMT) Extraspinal One Or More Reg Chiropractic Manip Treatmt (CMT) Extraspinal One Or More Reg 74644 018 SCOTT REZA Chiropractic Manip Treatmt (CMT) Spinal [place] Chiropractic Manip Treatmt (CMT) Spinal [place] 81893 018 SCOTT REZA Chiropractic Manip Treatmt (CMT) Spinal [place] Chiropractic Manip Treatmt (CMT) Spinal [place] 55124 018 SCOTT REZA Chiropractic Manip Treatmt (CMT) Extraspinal One Or More Reg Chiropractic Manip Treatmt (CMT) Extraspinal One Or More Reg 10497 018 SCOTT REZA Health And Behav A e mt Each 15 Min [place] e ment Health And Behav Assessmt Each 15 Min Reassessment 19445 018 LELE MCWILLIAMS Chiropractic Manip Treatmt (CMT) Extraspinal One Or More Reg Chiropractic Manip Treatmt (CMT) Extraspinal One Or More Reg 11326 018 SCOTT REZA Chiropractic Manip Treatmt (CMT) Spinal [place] Chiropractic Manip Treatmt (CMT) Spinal [place] 79801 018 SCOTT REZA Modalities Electrical Stimulation Modalities Electrical Stimulation 78545 018 SCOTT REZA Chiropractic Manip Treatmt (CMT) Extraspinal One Or More Reg Chiropractic Manip Treatmt (CMT) Extraspinal One Or More Reg 02212 018 SCOTT REZA Chiropractic Manip Treatmt (CMT) Spinal [place] Chiropractic Manip Treatmt (CMT) Spinal [place] 13785 018 SCOTT REZA Acid Operator Educ Orthotics Training Additional 15 Minutes Acid Operator Educ Orthotics Training Additional 15 Minutes [id number] 018 AMAN MALAGON Lift, elevation, heel, per inch 018 AMAN MALAGON 2 Lifts [facility] Physical Therapy Education Orthotics Training Initial 15 Min Physical Therapy Education Orthotics Training Initial 15 Min [id number] [id number] AMAN MALAGON Chiropractic Manip Treatmt (CMT) Extraspinal One Or More Reg Chiropractic Manip Treatmt (CMT) Extraspinal One Or More Reg 22399 018 SCOTT REZA Chiropractic Manip Treatmt (CMT) Spinal Three To Four Region Chiropractic Manip Treatmt (CMT) Spinal Three To Four Region 84453 018 SCOTT REZA Chiropractic Manip Treatmt (CMT) Extraspinal One Or More Reg Chiropractic Manip Treatmt (CMT) Extraspinal One Or More Reg 93411 018 SCOTT REZA ECG 12-Lead With Interpretation And Report ECG 12-Lead With Interpretation And Report [id number] RICARDO LOVELACE Q-waves in leads II, III, and aVF. Asymptomatic, Baseline ECG [facility] Chiropractic Manip Treatmt (CMT) Spinal Three To Four Region Chiropractic Manip Treatmt (CMT) Spinal Three To Four Region [address] Services Special Review / Reporting Of Patient Status Dr. Diaz Special Review / Reporting Of Patient Status 59544 018 SOLANGE GUAJARDO Acoustic Immittance Test Acoustic Immittance Test 66009 018 SOLANGE GUAJARDO [facility] Chiropractic Manip Treatmt (CMT) Extraspinal One Or More Reg Chiropractic Manip Treatmt (CMT) Extraspinal One Or More Reg 24864 018 SCOTT REZA [facility] Chiropractic Manip Treatmt (CMT) Spinal Three To Four Region Chiropractic Manip Treatmt (CMT) Spinal Three To Four Region 56563 018 SCOTT REZA [facility] Ophthalmological Prior Patient Start Comprehensive Care Ophthalmological Prior Patient Start Comprehensive Care 97203 018 ELIANE MEJÍA [facility] Determination Of Refractive State Determination Of Refractive State 96948 018 ELIANE MEJÍA [facility] Audiometry Group Testing Audiometry Group Testing 86481 018 RENAE ORTIZ [facility] Ear mold/insert, not disposable, any type 018 WEDER, STANLEY A [facility] Ear Protector Attenuation Measurements Ear Protector Attenuation Measurements 94903 018 WEDER, STANLEY A [facility] Audiometry Group Testing Audiometry Group Testing 22293 018 WEDER, STANLEY A [facility] Health And Behav A e mt Each 15 Min Pamela e ment Health And Behav Assessmt Each 15 Min Reassessment 98676 018 LELE MCWILLIAMS [facility] Screening Test Of Visual Acuity, Quantitative, Bilateral Screening Test Of Visual Acuity, Quantitative, Bilateral 54500 018 NOEMI KIRBY [facility] Venipuncture Venipuncture 67503 018 NOEMI KIRBY [facility] Physical Medicine - Group Physical Therapy Se ion Physical Medicine - Group Physical Therapy Session 39929 018 HORN, CATHY [facility] Physical Medicine - Group Physical Therapy Se ion Physical Medicine - Group Physical Therapy Session 89974 018 HORN, LEONIE [facility] Physical Medicine - Group Physical Therapy Se ion Physical Medicine - Group Physical Therapy Session 54446 018 HORN, CATHY [facility] Chiropractic Manip Treatmt (CMT) Extraspinal One Or More Reg Chiropractic Manip Treatmt (CMT) Extraspinal One Or More Reg 12295 018 SCOTT REZA Chiropractic Manip Treatmt (CMT) Spinal Three To Four Region Chiropractic Manip Treatmt (CMT) Spinal Three To Four Region 55817 018 SCOTT REZA Health And Behav A e mt Each 15 Min [place] e ment Health And Behav Assessmt Each 15 Min Reassessment 04430 018 LELE MCWILLIAMS Physical Medicine - Group Physical Therapy Se ion Physical Medicine - Group Physical Therapy Session 22711 018 [facility] Physical Medicine - Group Physical Therapy Se ion Physical Medicine - Group Physical Therapy Session 68548 018 [facility] Evoked Otoacoustic Keira ions Limited Evoked Otoacoustic Emissions Limited 60559 018 TOMER KUHN [facility] Acoustic Reflex Testing Acoustic Reflex Testing 88191 018 TOMER KUHN Tympanometry Tympanometry 70746 018 TOMER KUHN Comprehensive Audiometry Comprehensive Audiometry 56142 018 TOMER KUHN Injection Of Trigger Point(s) Three Or More Muscle Group(s) Injection Of Trigger Point(s) Three Or More Muscle Group(s) 94577 018 SHARON SALCEDO [facility] Health And Behav A e mt Each 15 Min Pamela e ment Health And Behav Assessmt Each 15 Min Reassessment [address].-Supervised Group Educational Services -Supervised Group Educational Services 33679 018 RE SMALLWOOD [facility] Health And Behavior Intervention, Each 15 Minutes Individual Health And Behavior Intervention, Each 15 Minutes Individual 47998 018 LELE MCWILLIAMS Health And Behav A e mt Each 15 Min [place] e ment Health And Behav Assessmt Each 15 Min Reassessment 86689 018 LELE MCWILLIAMS Psychiatric Evaluation Review of Records and Reports Psychiatric Evaluation Review of Records and Reports 89472 018 JILLIAN MITCHELL [facility] Immunization Administration One Vaccine Immunization Administration One Vaccine 73088 018 GABBI HERRERA [facility] Acid Operator Educ Orthotics Training Additional 15 Minutes Acid Operator Educ Orthotics Training Additional 15 Minutes 35812 AMAN MALAGON Foot, arch support, removable, premolded, longitudinal, each AMAN MALAGON [facility] Physical Therapy Education Orthotics Training Initial 15 Min Physical Therapy Education Orthotics Training Initial 15 Min 83263 AMAN MALAGON Physical Medicine Physical Therapy Re-Evaluation Physical Medicine Physical Therapy Re-Evaluation 41405 018 FLAVIA SYKES Health And Behav A e mt Each 15 Min Initial A e ment Health And Behav Assessmt Each 15 Min Initial Assessment 62644 018 LELE MCWILLIAMS PT A e ment Kinetic Training PT Assessment Kinetic Training 01477 017 FLAVIA SYKES Exercises A isted Exercises For ROM Exercises Assisted Exercises For ROM 62279 FLAVIA SYKES Physical Medicine Physical Therapy Re-Evaluation Physical Medicine Physical Therapy Re-Evaluation 92393 017 FLAVIA SYKES Ear Protector Attenuation Measurements Ear Protector Attenuation Measurements 70866 TETE DONALD Ear mold/insert, not disposable, any type TETE DONALD Audiometry Group Testing Audiometry Group Testing 22053 TETE DONALD Exercises A isted Exercises For ROM Exercises Assisted Exercises For ROM [address] Supervised Injection Intramuscular Supervised Injection Intramuscular 57694 017 GABBI HERRERA Injection, dexamethasone sodium phosphate, 1 mg GABBI HERRERA 8mg IM now to right deltoid; tolerated well. (0.1mg/kg; pt 88kg).. [facility] Nasal Endoscopy (diagnostic) Nasal Endoscopy (diagnostic) 26083 017 CHUNG DU Physical Medicine Physical Therapy Re-Evaluation Physical Medicine Physical Therapy Re-Evaluation 92243 017 VI BAUGH Mobilization Soft Ti ue Mobilization Soft Tissue 43477 017 VI BAUGH Physical or manipulative therapy performed for maintenance rather than jew VI BAUGH [facility] Physical Therapy: ___ Se ion Segments, 15 Minutes Each Physical Therapy: ___ Session Segments, 15 Minutes Each 59990 017 VI BAUGH [facility] Physical Therapy: ___ Se ion Segments, 15 Minutes Each Physical Therapy: ___ Session Segments, 15 Minutes Each 60265 017 CHUNG ALFORD [facility] Physical Therapy: ___ Se ion Segments, 15 Minutes Each Physical Therapy: ___ Session Segments, 15 Minutes Each 45138 017 CHUNG ALFORD [facility] Physical Medicine - Group Physical Therapy Se ion Physical Medicine - Group Physical Therapy Session 98340 017 LAVELLE SAHU [facility] Physical Therapy: ___ Se ion Segments, 15 Minutes Each Physical Therapy: ___ Session Segments, 15 Minutes Each 05502 017 LAVELLE SAHU [facility] Physical Medicine - Group Physical Therapy Se ion Physical Medicine - Group Physical Therapy Session 53558 017 JEAN-PAUL GUY [facility] Physical Therapy: ___ Se ion Segments, 15 Minutes Each Physical Therapy: ___ Session Segments, 15 Minutes Each 34937 017 JEAN-PAUL GUY Physical Therapy Neuromuscular Re-education Physical Therapy Neuromuscular Re-education 70390 017 POLLO TSANG [facility] Physical Therapy: ___ Se ion Segments, 15 Minutes Each Physical Therapy: ___ Session Segments, 15 Minutes Each 77870 017 POLLO TSANG [facility] Allergy Percutaneous tests - allergenic extracts Allergy Percutaneous tests - allergenic extracts 00495 017 LILO FOWLER [facility] Ophthalmological New Patient Start Comprehensive Care Ophthalmological New Patient Start Comprehensive Care 96158 017 ELIANE MEJÍA Determination Of Refractive State Determination Of Refractive State 26984 017 ELIANE MEJÍA Hepatitis A And Hepatitis B (Intramuscular Use) Adult Dosage Hepatitis A And Hepatitis B (Intramuscular Use) Adult Dosage 87756 016 MELINDA GREENBERG Vaccines Viral Varicella (Active) Vaccines Viral Varicella (Active) 38383 016 MELINDA GREENBERG Immunization Administration Each Additional Vaccine Immunization Administration Each Additional Vaccine 30290 016 MELINDA GREENBERG [facility] Immunization Administration One Vaccine Immunization Administration One Vaccine [address] Supervised Injection Intramuscular Antibiotic Supervised Injection Intramuscular Antibiotic 01726 RANCHO MIRELES Vaccines Viral Polio, Inactivated (Salk) Vaccines Viral Polio, Inactivated (Salk) 00274 016 TROYRANCHO RUSS [facility] Meningococcal Polysacch Diphtheria Toxoid Conjugate Vaccine [facility] JEN, RANCHO [facility] Vaccines Viral Varicella (Active) Vaccines Viral Varicella (Active) 56363 016 TROYRANCHO RUSS [facility] Hepatitis A And Hepatitis B (Intramuscular Use) Adult Dosage Hepatitis A And Hepatitis B (Intramuscular Use) Adult Dosage 42760 016 TROYRANCHO RUSS Immunization Admin By Intranasal / Oral Route One Vaccine Immunization Admin By Intranasal / Oral Route One Vaccine 61350 016 TROYRANCHO RUSS Immunization Admin Intranasal / Oral Each Additional Vaccine Immunization Admin Intranasal / Oral Each Additional Vaccine 91913 016 [facility] Immunization Administration Each Additional Vaccine Immunization Administration Each Additional Vaccine 29498 016 [facility]OY[facility] LI [facility] Vaccines Adenovirus Type 4 Live, For Oral Use Vaccines Adenovirus Type 4 Live, For Oral Use 34748 016 [facility] Vaccines Adenovirus Type 7 Live, For Oral Use Vaccines Adenovirus Type 7 Live, For Oral Use 34526 016 TROYRANCHO RUSS [facility] Tdap Vaccine Seven Years Of Age And Above Tdap Vaccine Seven Years Of Age And Above 33661 TROYRANCHO RUSS [facility] Threshold Audiogram (Pure Tone) Automated Threshold Audiogram (Pure Tone) Automated 0208T [employer] Ear mold/insert, not disposable, any type [employer] Patient education, not otherwise cla ified, non-physician provider, group, per se ion 016 PONCHO MARTIN [facility] -Supervised Specimen Handling / Transfer: Office To Lab -Supervised Specimen Handling / Transfer: Office To Lab 25936 016 JED HERNANDEZ [facility] Venipuncture Venipuncture 38766 016 JED HERNANDEZ [facility] Ophthalmological New Patient Start Comprehensive Care Ophthalmological New Patient Start Comprehensive Care 86424 016 KENDRICK WESTON Social History Combined list of available smoking, tobacco, and other social history from Department of 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 Social History Type Response Date Comment Sourc e Tobacco smoking status NHIS VA-TOBACCO NEVER USED 03/10/2024 [facility] History of tobacco use VA-TOBACCO NEVER USED 11/05/2022 [facility] History of tobacco use VA-TOBACCO NEVER USED 07/13/2020 [facility] History of tobacco use VA-TOBACCO NEVER USED 07/07/2019 [facility] History of tobacco use VA-TOBACCO NEVER USED 04/21/2019 [facility] This section is an empty social history section. [employer] Plan of Care List of future care activities from Department of Veterans Affairs facilities. Additional future care activities may be listed in the Assessment and Plan section. Date/Time Care Activity Care Activity Detail Facili ty 02/24/2025 AMBULATORY - PSYCHIATRY AMBULATORY - PSYC HIATRY [facility]
[2025-02-21 11:36] VITALS: BP 112/67; PULSE 65; RESP 18; TEMP 36.4; O2SAT 99
--- NOTE | 2025-02-21 11:49 | ED_ITS ---
HPI - General Adult General Chief complaint: Extremity Injury, Lower Stated complaint: toe injury History of Present Illness HPI narrative: Wali Mason is a 29-year-old male who presents today with complaints of right great toe pain. He states that he stubbed it on a cabinet yesterday around noon and it became swollen and painful. Today the swelling has improved some his pain has improved but does want to get checked out. Related Data Home Medications ?Medication ?Instructions ?Recorded ?Confirmed ?Last Taken ?Type No Home Medications 02/21/25 02/21/25 Unknown History Allergies Allergy/AdvReac Type Severity Reaction Status Date / Time No Known Allergies Allergy Verified 02/21/25 11:51 Review of Systems Review of Systems: All systems reviewed & are unremarkable except as noted in HPI and below Exam Narrative: GENERAL: Well-appearing, well-nourished, and in no acute distress. HEAD: Normocephalic, atraumatic. EYES: PERRLA and EOMI. ENT: Nares clear, no rhinorrhea or epistaxis. Mucous membranes moist. Oropharynx without tonsillar hypertrophy exudate or other lesions. Bilateral TMs pearly javed nonbulging NECK: Supple. No adenopathy or masses. No carotid bruits or JVD CHEST: Clear to auscultation. No respiratory distress. No wheezes rales or rhonchi HEART: Regular rate and rhythm. No murmur heard. Normal peripheral pulses. ABDOMEN: Soft, nontender, nondistended, normal active bowel sounds. EXTREMITIES: Normal range of motion. R great toe + ecchymosis to posterior aspect mild erythema to anterior aspect normal cap refill, strong pedal pulses no open wounds or rashes noted SKIN: Warm, dry, no rash. NEURO: No focal deficits. Alert and oriented x3. PSYCH: Normal mood and affect. Course Course Level of Care: Express Care Visit Vital Signs Vital signs: Vital Signs Temperature 36.4 C 02/21/25 11:36 Pulse Rate 65 02/21/25 11:36 Respiratory Rate 18 02/21/25 11:36 Blood Pressure 112/67 02/21/25 11:36 Pulse Oximetry 99 02/21/25 11:36 Oxygen Delivery Room Air 02/21/25 11:36 Temperature 36.4 C 02/21/25 11:36 Pulse Rate 65 02/21/25 11:36 Respiratory Rate 18 02/21/25 11:36 Blood Pressure 112/67 02/21/25 11:36 Pulse Oximetry 99 02/21/25 11:36 Oxygen Delivery Room Air 02/21/25 11:36 Medical Decision Making MDM Narrative Medical decision making narrative: Normal range of motion. R great toe + ecchymosis to posterior aspect mild erythema to anterior aspect normal cap refill, strong pedal pulses no open wounds or rashes noted concern for contusion vs fracture plan to check an XR and treat him with a dose of motrin as he took tylenol today XR :: Acute partially comminuted fracture of the proximal margin of the distal phalanx of the right great toe with extension into the articular surface along the lateral margin. Will place pt in a posterior short-leg splint, keep him non weight bearing with crutches and refer to podiatry Splint in place and remains neurovascular intact, crutches provided patient provided with strict return precautions and orthopedic referral patient agrees with plan and denies needing anything further Medical Records Medical records reviewed: Yes I reviewed the external patient's medical records. Vital Signs Vital Signs: Vital Signs Temperature 36.4 C 02/21/25 11:36 Pulse Rate 65 02/21/25 11:36 Respiratory Rate 18 02/21/25 11:36 Blood Pressure 112/67 02/21/25 11:36 Pulse Oximetry 99 02/21/25 11:36 Oxygen Delivery Room Air 02/21/25 11:36 Temperature 36.4 C 02/21/25 11:36 Pulse Rate 65 02/21/25 11:36 Respiratory Rate 18 02/21/25 11:36 Blood Pressure 112/67 02/21/25 11:36 Pulse Oximetry 99 02/21/25 11:36 Oxygen Delivery Room Air 02/21/25 11:36 Vitals reviewed by wv Imaging Data Radiologist's impression: Impressions Toe X-Ray 02/21/25 12:07 IMPRESSION: Acute partially comminuted fracture of the proximal margin of the distal phalanx of the right great toe with extension into the articular surface along the lateral margin. Discharge Plan Discharge Clinical Impression: Toe fracture, right Qualifiers: Encounter type: initial encounter Toe: great toe Fracture type: closed Phalanx: distal Fracture alignment: nondisplaced Qualified Code(s): S92.424A - Nondisplaced fracture of distal phalanx of right great toe, initial encounter f or closed fracture Patient Disposition: Home Condition: Stable Instructions: Antibiotic Form, Splint Care (ED), P.R.I.C.E. Treatment (ED) Additional Instructions: Continue to wear splint and use your crutches to avoid putting any weight on your right great toe you may continue Tylenol Motrin ice and elevate your foot while at rest please call on Saturday to follow up with Podiatry as we discussed If you develop any worsening symptoms increased pain, increased swelling the proceed to the ER Patient Language: Barbadian Prescriptions: No Action No Home Medications Follow-up/Referrals: Des Mcmahon Jr., EVAN [Physician] - 3 Days UNKNOWN,DOCTOR [Primary Care Provider] - Time of Disposition: 12:50
[2025-02-21] MEDS: IBUPROFEN 600 MG TABLET PO (12:01)
== END 2025-02-21 12:54 | disposition home or self-care (01) ==
PROVIDERS: Emergency Provider Nurse Practitioner Family
DX: S92.424A Nondisplaced fracture of distal phalanx of right great toe, initial encounter for closed fracture (principal); W22.8XXA Striking against or struck by other objects, initial encounter
CPT/HCPCS: 29515; 73660; 99214; A9270; G0463

== ENCOUNTER 2025-03-05 17:13 | Emergency (ER) | payer BC, OTHER, SELFPAY ==
--- OUTSIDE RECORDS SUMMARY | 2025-03-05 17:16 | XMS_ITS | Clinical Summary ---
Author Organization [facility] Address [address] [place] [id number] Care Team Providers Care Network Support Technician Name Role Phone Javier Flynn MD Primary Care Provider [phone]- [phone] Allergies No known active allergies Medications No known medications Active Problems Problem Noted Date Diagnosed Date Palpitations 09/15/2021 Chest discomfort 09/15/2021 Lipid screening 09/15/2021 Anxiety 09/15/2021 Osteochondral lesion of talar dome 08/09/2020 Overview (08/09/2020): Added automatically from request for surgery [id number] Encounters Date Type Department Care Team Description 02/17/2025 1:29 PM CDT - 02/17/2025 11:59 PM CDT Hospital Encounter [facility] Radiology at [facility] [address] [place] [address] Chronic pain of right ankle Discharge Disposition: Discharge to home or self care 02/17/2025 1:15 PM CDT Office Visit [facility] Orthopaedic Surgery [address] [facility] [address] [place] [address] Cuca Mcintosh NP Osteochondral defect of talus (Primary Dx); Right ankle pain, unspecified chronicity 02/11/2025 Orders Only [facility] Orthopaedic Surgery [address] [place] [address] Alka Weiss RN Chronic pain of right ankle (Primary Dx) from Last 3 Months Surgical History Surgery Date Site/Laterality Comments RHINOPLASTY WISDOM TOOTH EXTRACTION NASAL SEPTUM SURGERY Medical History Medical History Date Comments Anxiety Depression Arthritis Osteochondral lesion of talar dome 08/09/2020 Added automatically from request for surgery [id number] Chest pain Family History Medical History Relation [...] Industry Job Start Date Job End Date [employer] Not on file Not on file Not on file Obstetrics History Last Filed Vital Signs Vital Sign Reading Time Taken Comments Blood Pressure 118/72 10/31/2021 11:58 AM MOLECULAR GENETIC PATHOLOGIST Pulse 78 10/31/2021 11:58 AM MOLECULAR GENETIC PATHOLOGIST Temperature 37 C (98.6 F) 09/16/2020 12:19 PM MOLECULAR GENETIC PATHOLOGIST Respiratory Rate 15 09/15/2021 11:17 AM MOLECULAR GENETIC PATHOLOGIST Oxygen Saturation 96% 10/31/2021 11:58 AM MOLECULAR GENETIC PATHOLOGIST Inhaled Oxygen Concentration - - Weight 90.7 [...] signed by: Jace Goodson MD Cuca Scrogin SENIOR MECHANICAL DESIGNER IMG XR PROCEDURES Final Result from Last [address] [facility] CLAIMS [facility] CLAIM[facility] [id number] [facility] Care Teams Network Support Technician Relationship Specialty Start Date End Date Javier Flynn MD [address] [place] [address] PCP - General Family Medicine 06/03/20
--- OUTSIDE RECORDS SUMMARY | 2025-03-05 17:16 | XMS_ITS | Data Portability ---
Author Organization [facility], [address] ([place]) Address [address] 4th [place] [address] Care Team Providers Care Nursing Unit Coordinator Name Role Phone JAVIER GALLARDO Primary Care [...] Diclofenac for inflammation and go back to [facility] for further eval. Pt verbalizes understanding of treatment plan. Not available 01/22/2025 14:42:52 02/23/2025 02/23/2025 We will get the Xray report from Urgent Care and will refer to Podiatry. Pt would like referral to [facility] if surgery may be needed. Due to ongoing neck/back pain despite PT and NSAIDs, I will order MRIs. If not approved, refer to Ortho. Pt verbalizes understanding of treatment plan. Not available 02/24/2025 11:16:44 Plan of Treatment Reminders Order Date Submit Date Provider Last Modified By Organization Details Last Modified Time Details Appointments None recorded. Lab None recorded. Referral orthopedic surgeon referral - Please refer to Ortho at [facility]. 2024 025 [email or web address] Cuca Mcintosh, [address] [place], [address], 17:07:43 psychiatris t referral 2024 [facility] (Psychiatry & Mental Health), [address], [address], 10:35:24 Procedures None recorded. Surgeries None recorded. Imaging None recorded. Medication Orders diclofenac sodium 75 mg tablet,angela yed release [address]/Pharmacy #[id number], [address] [place] [address], [address], 16:54:17 cyclobenzap rine 10 mg tablet 2024 025 [facility]/Ph[facility]acy #[id number], [address] [place] [address], [address], 17:39:10 naproxen 500 mg tablet 2024 025 [facility]/Pharmacy #[id number], [address] [place] [address], [address], 14:22:15 Patient TargetsNo targets recorded. Patient Instructions Encounter Date Encounter Id Patient Instructions Last Modified By Organization Details Last Modified Time 11/16/2024 [id number] - ADDENDUM on 11/24/24 After receiving additional paperwork from the [employer] [facility] care [facility], I spoke with patient again regarding his [...] does have their number to do so. joyce Not available 11/24/2024 18:08:04 Reason for Referral Psychiatrist Referral for Ac martin stress disorder Referring Physician: Meron Kirk, Family Medicine, Encounter Date: 11/16/2024 Orthopedic Surgeon Referral for Ankle pain Please refer to Ortho at [facility]. Referring Physician: Raquel Raymundo Family Medicine, Encounter Date: 01/22/2025 Results Created Date Observation Date Name Description Value Unit Range Abnormal Flag Note LastModifiedBy Organization Detail LastModifiedTime 01/12/2001/11/2025 XR, lumba r spine , 2 view No observ ation record ed. [facility] - Radiology [address], [place], [address], 01/11/2025 13:53:38 01/12/2001/11/2025 XR, cervi ernie spine , 2 or 3 view No observ ation record ed. [facility] - Radiology [address] [place], [address], 01/11/2025 13:53:38 Result Notes None recorded. Problems Name Problem SNOMED Code Status Onset Date Resolution Date Notes Provider Name and Address Organization Details Recorded Time Chest discomfo rt 624418279 Completed 11/15/2024 Fall ': nrml EKG, Trop, CKMB, 24 holter. [facility] Cardiolo gy did StressTr eadmill : nmL. Meron Kirk, OBSTETRICS SPECIALIST [address] [place], [address], [facility] 5 15:26:19 Generali zed anxiety disorder 96955176 [facility]avier Gallardo MD [address] [place], [address], [facility] 5 16:10:28 Low back pain 495238021 Active tx Meloxica m and PT. - XR : possible scolioti c curve, otherwis e nmL (prior dx scoliosi s on XR 12/2017) Ongoing pain despite PT and NSAIDs; pending MRI (refer to Ortho if not covered) Raquel Raymundo PA-C [address], [place], [address], [facility] 5 11:16:39 Posttrau matic stress disorder 45895616 Active 2024 Possible PTSD per [place] records Meron Kirk, OBSTETRICS SPECIALIST [address] , [place], [address], [facility] 5 15:28:48 Ankle pain 239987195 Active Since previous frxr (2017) w/ XR: [...] per Ortho Raquel Raymundo PA-C [address], [place], [address], [facility] 5 09:20:00 Pain of hip region 24395690 Completed Likely 2/2 ankle pain Javier Gallardo MD [address], [place], [address], [facility] 5 16:11:50 Pain of right knee region 49145044615 4105 Completed MRI 10/2017: normal structur es (edema within supra-pa tellar fat pad, & miniscul e poplitea l cyst). Javier Gallardo MD [address] [facility], [place], [address], [facility] 5 16:17:08 Pain of right shoulder region Completed after a fall. nrml exam; tx NSAID: PT if no improvem ent. - prior nmL XR 09/2018 Javier Gallardo MD [address] [facility], [place], [address], [facility] 5 16:17:51 Right cardiac ventricu lar dilatati on 308680080 Active dx on echo (for SOB). Cardiolo gy eval advised avoid muscle building suppleme nts (sx's improved while off those, and echo nmL ) Javier Gallardo MD [address] [place] [address], [address], [facility] 5 16:09:58 Scoliosi s deformit y of spine 389903053 Active 2024 [employer] ; 09/10/19 Xray-->l eftward scoliosi s centered at thoracol umbar junction 18 degrees Meron Kirk APRN [address] [facility], [place], [address], [facility] 5 15:32:30 Stress fracture of right tibia 41067574140 809481 Completed 11/15/2024 Grade 2 on SPECT scan 04/2018. Meron Kirk APRN [address] [place] [address], [address], [facility] 5 15:38:53 History of procedur e 352894593 Completed normal sleep study 11/2017 in records Javier Gallardo MD [address] [facility], [place], [address], [facility] 5 16:14:53 Acute stress disorder 80317397 Active 2024 Meron OmerSUNDAY clark [address] [place] [address], [address], [facility] 17:03:24 Chronic neck pain 25913777868 07 Active 2024 Persisti ng pain despite PT and anti-inf lammator ies; recommen d MRI Raquel Raymundo PA-C [address] [place] [address], [address], [facility] 11:12:15 Closed fracture of great toe 126912655 Active 2024 Eval at [facility] [place]; refer to Podiatry Raquel Raymundo PA-C [address] [place] [address], [address], [facility] 11:11:11 Notes:Some problems listed i n Document: #[id number] could not be added to this patient's chart. Please review this document and add these problems to the patient's chart manually as needed. Problem Notes None recorded. Procedures Surgical History Date Name Laterality Status Provider Name and Address Organization Details Recorded Time operation on nose completed Meronbjorn Kirk APRN [address] [place] [address], [address], [facility] 11/15/2024 15:39:48 arthroscopy of ankle completed Meronbjorn Kirk APRN [address] [place] [address], [address], [facility] 11/15/2024 15:40:09 Imaging Results None recorded. Procedure Notes None recorded. Medical Equipment None [...] Address Organization Details Last Updated DateTime 5 849370. 47 g 98.5 [degF] 84 /min 98 % 98 % 116 mm[Hg] 88 mm[Hg] [facility] 5 16:08:11 Date Recorded Body weight Body temperature Heart rate Oxygen saturation Oxygen saturation in Arterial blood by Pulse oximetry Systolic blood pressure Diastolic blood pressure Provider Name and Address Organization Details Last Updated DateTime 5 267390 g 97.3 [degF] 68 /min 96 % 96 % 130 mm[Hg] 94 mm[Hg] [facility] 5 17:26:32 Date Recorded Body weight Body temperature Heart rate Oxygen saturation Oxygen saturation in Arterial blood by Pulse oximetry Systolic blood pressure Diastolic blood pressure Provider Name and Address Organization Details Last Updated DateTime 5 90769.1 7 g 97.3 [degF] 75 /min 97 % 97 % 130 mm[Hg] 82 mm[Hg] [facility] 14:10:24 Date Recorded Body temperature Heart rate Oxygen saturation Oxygen saturation in Arterial blood by Pulse oximetry Systolic blood pressure Diastolic blood pressure Provider Name and Address Organization Details Last Updated DateTime 5 97.3 [degF] 76 /min 96 % 96 % 118 mm[Hg] 74 mm[Hg] [facility] 5 17:47:15 Social History None recorded. Functional Status None [...] Recorded Time Hib, unspecified formulation 8 completed [facility] 11/16/2024 16:08:29 Hib, unspecified formulation 0 completed [facility] 16:08:29 Hib-Hep B 8 completed Dina Neftali null, [facility] 11/16/2024 16:08:29 HPV9 6 completed [facility] 11/16/2024 16:08:29 IPV 0 completed [facility] 11/16/2024 16:08:29 IPV 3 completed [facility] 11/16/2024 16:08:29 IPV 6 completed [facility] 11/16/2024 16:08:29 MMR 0 completed [facility] 11/16/2024 16:08:29 MMR 3 completed [facility] 11/16/2024 16:08:29 MMR 6 completed [facility] 11/16/2024 16:08:29 COVID-19 vaccine, vector-nr, rS-Ad26, PF, 0.5 mL 1 completed [facility] 11/16/2024 16:08:29 Tdap 2 completed [facility] 11/16/2024 16:08:29 Tdap 6 completed [facility] 11/16/2024 16:08:29 varicella 6 completed [facility] 11/16/2024 16:08:29 varicella 6 completed [facility] 11/16/2024 16:08:29 OPV 8 completed [facility] 11/16/2024 16:08:29 OPV 7 completed Dina Neftali null, [facility] 11/16/2024 16:08:29 Anthrax, pre-exposure prophylaxis, post-exposure prophylaxis 8 completed Dina Neftali null, [facility] 11/16/2024 16:08:29 DTP-Hib 7 completed Dina Neftali null, [facility] 11/16/2024 16:08:29 Novel [id number] 9 completed Dina Neftali null, [facility] 11/16/2024 16:08:29 Hep B, adolescent or pediatric 8 completed Dina Neftali null, [facility] 11/16/2024 16:08:29 Hep B, adolescent or pediatric 7 completed Dina Neftali null, [facility] 11/16/2024 16:08:29 Hep B, adolescent or pediatric 7 completed Dina Neftali null, [facility] 11/16/2024 16:08:29 typhoid, ViCPs 8 completed Dina Neftali null, [facility] 11/16/2024 16:08:30 meningococcal MCV4P 5 completed Dina Neftali null, [facility] 11/16/2024 16:08:30 meningococcal MCV4P 2 completed Dina Neftali null, [facility] 11/16/2024 16:08:30 meningococcal MCV4P 6 completed Dina Neftali null, [facility] 11/16/2024 16:08:30 DTaP 8 completed Dina Neftali null, [facility] 11/16/2024 16:08:30 DTaP 8 completed Dina Neftali null, [facility] 11/16/2024 16:08:30 DTaP 0 completed Dina Neftali null, [facility] 11/16/2024 16:08:30 DTaP 3 completed Dina Neftali null, [facility] 11/16/2024 16:08:30 Adenovirus types 4 and 7 6 completed [facility] 11/16/2024 16:08:30 Influenza, split virus, quadrivalent, PF 7 completed [facility] 11/16/2024 16:08:30 Influenza, split virus, quadrivalent, PF 8 completed [facility] 11/16/2024 16:08:30 Hep A-Hep B 6 completed [facility] 11/16/2024 16:08:30 Past Encounters Encounter ID Performer Location Encounter Start Date Encounter Closed Date Diagnosis/Indication Diagnosis SNOMED-CT Code Diagnosis ICD10 Code Diagnosis Note [id number] Meron Kirk APRN [facility] ([place]) [address] [place] [address] 11/16/2024 16:00:00 11/16/2024 16:50:20 Acute stress disorder 42115025 F43.0 Situationa l stress related to an [...] aware of this. History of musculoskeletal disease 271980981 Z87.39 [id number] Raquel Raymundo PA-C [facility] ([place]) [address] [place] [address] 12/31/2024 17:22:46 12/31/2024 17:54:54 Chronic neck pain 5614385273 107 M54.2 G89.29 Low back pain 786658230 M54.50 [id number] Raquel Raymundo PA-C [facility] ([place]) [address] [place] [address] 01/22/2025 14:01:53 01/22/2025 14:43:42 Ankle pain 010199040 M25.571 [id number] Raquel Raymundo PA-C [facility] ([place]) [address] [place] [address] 02/23/2025 17:31:39 02/24/2025 16:34:33 Closed fracture of great toe 427928810 S92.401K Eval [place] [facility]; refer to podiatry for further eval Chronic neck pain 522937 8514 107 M54.2 G89.29 Low back pain 755547881 M54.50 Health Concerns Section Related Observation LastModified by Organization Detai ls LastModified Time None Recorded Concern Status LastModified by Organization Details LastModified Time None Recorded Advance Directives Directive None Recorded Payers Insurance Date Sequence Insurance Name Policy Number Policy Rosenberg Covered Member ID Rosenberg Member ID Guarantor Name 02/26/2025 1 [employer]-ID BLUE CROSS - FEP [id number] [facility] Isabella [id number] Wali Isabella 02/23/2025 2 [facility] () [place] Isabella [id number] [facility] Notes Date Note Type Note Provider Name and Address Organization Details Recorded Time 11/16/2024 text/html Work note needed-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 Meron Kirk, OBSTETRICS SPECIALIST [address] [place] [address], [address], [facility] 11/24/2024 18:08:30 12/31/2024 text/html Wali presents today [...] back-denies numbness and tingling in legs Raquel aRymundo PA-C [address] [place] [address], [address], [facility] 01/04/2025 09:47:39 01/22/2025 text/html Wali presents today with complaint of right ankle pain-pain started after mowing a couple of days ago-history of surgery with [facility] in 2020-ankle swells off and on; getting worse in the last 6 months-previously took Diclofenac prn-has custom orthotics (from [place])-pt has not seen Ortho in 2 years-pt states that swelling after working long hours Raquel Raymundo PA-C [address] [place] [address], [phone], [facility] 01/25/2025 16:54:41 02/23/2025 text/html Wali presents today with complaint of broken toe-hit toe on kitchen cabinet at home Saturday02/20/25-went to Urgent Care in [place] 02/21/25; was told her had a fracture of the toe that may require surgery-foot was splinted and wrapped at Urgent Care-recommend referral to Podiatry but the [employer] [facility] in [place] could not get pt in until mid-February-pt is non-bearing at this time but had been walking prior to appt with Urgent Care-taking Ibuprofen daily for swelling/pain Chronic neck and back pain-sx did not improve with PT and anti-inflammatories -continues to have pain at all times Raquel Raymundo PA-C [address] [place] [address], [address], [facility] 02/25/2025 12:58:35
--- OUTSIDE RECORDS SUMMARY | 2025-03-05 17:16 | XMS_ITS | Referral Summary ---
Author Organization [facility] Address [address] [place] [address] Care Team Providers Care General Agent Name Role Phone Jaiver Flynn MD Primary Care Provider [phone]- [phone] Encounters Date Type Department Care Team Description 02/17/2025 1:29 PM CDT - 02/17/2025 11:59 PM CDT Hospital Encounter [facility] Radiology at [facility] [address] [place] [address] Chronic pain of right ankle Discharge Disposition: Discharge to home or self care 02/17/2025 1:15 PM CDT Office Visit [facility] Orthopaedic Surgery [address] [facility] 1st [address] [place] [address] Cuca Mcintosh NP Osteochondral defect of talus (Primary Dx); Right ankle pain, unspecified chronicity 02/11/2025 Orders Only [facility] Orthopaedic Surgery [address] [facility] [address] [place] [address] Alka Weiss RN Chronic pain of right ankle (Primary Dx) from Last 3 Months Allergies No known active allergies Medications No known medications Active Problems Problem Noted Date Diagnosed Date Palpitations 09/15/2021 Chest discomfort 09/15/2021 Lipid screening 09/15/2021 Anxiety 09/15/2021 Osteochondral lesion of talar dome 08/09/2020 Overview (08/09/2020): Added automatically from request for surgery [id number] Social History Tobacco Use Types Packs/Day Years [...] 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 Care Teams General Agent Relationship Specialty Start Date End Date Javier Flynn MD [address] [place] [address] PCP - General Family Medicine 06/03/20
--- OUTSIDE RECORDS SUMMARY | 2025-03-05 17:17 | XMS_ITS | Encounter Summary ---
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
--- OUTSIDE RECORDS SUMMARY | 2025-03-05 17:18 | XMS_ITS | Continuity of Care Document ---
Author Name [facility] Organization [facility] Care Team Providers [employer] Project Manager Name Role Phone [facility] Unavailable Unavailable Problems Combined list of problems [...] DoD Acquired hallux valgus Active Condition [facility] Ankle fracture Active Condition Apr Entered By: EHSAN HOUSTON Comment: while in service, right ankleAug 2018 Entered By: EHSAN HOUSTON Comment: osteochondral fracture medial talus, per 06/17 xrayAug 2018 Entered By: EHSAN HOUSTON Comment: osteochondritis dessecans right ankleAug 2018 Entered By: EHSAN HOUSTON Comment: surgery advised. [facility] Ankle pain Active Condition Jul 14 Entered By: OWEN VILLAVICENCIO Comment: right ankle fx. [facility] Bilateral tinnitus Active Condition [facility] Kade Archibald [facility] Chronic pain syndrome Active Condition [facility] Elbow pain Active Condition Jul 14 Entered By: OWEN VILLAVICENCIO Comment: bilateral [facility] Family social history Active Condition Apr 30, 2019 Entered By: EHSAN HOUSTON Comment: father with HTN, no cancerAug 2018 Entered By: EHSAN HOUSTON Comment: no CAD or CVA [facility] H/O: surgery Active Condition Apr 30, 2019 Entered By: EHSAN HOUSTON Comment: deviated septum and revisiong 2018 Entered By: EHSAN HOUSTON Comment: wisdom teeth [facility] Headache ([facility] [id number]) Active Condition [facility] Low Back Pain ([facility] [id number]) Active Condition [facility] Neck injury Active Condition Apr 30, 2019 Entered By: EHSAN HOUSTON Comment: [place] for neck pain [facility] Neck Pain ([facility] [id number]) Active Condition [facility] Scoliosis Active Condition [facility] Social history baseline finding Active Condition Apr 30 9 Entered By: EHSAN 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, no combat, -g 2018 Entered By: EHSAN HOUSTON Comment: applied for federal custodial in Spring 2018 Entered By: EHSAN HOUSTON Comment: fit, activeAug 2018 Entered By: EHSAN HOUSTON Comment: non-smokerg 2018 Entered By: EHSAN HOUSTON Comment: non-drinkerAug 2018 Entered By: EHSAN HOUSTON Comment: live with Mom [facility] Pseudofolliculitis barbae Active Condition [facility] Overweight Active Condition [facility] Body mass index (BMI) 28.0-28.9, adult Active Condition [facility] Diagnosis: ICD-10-CM F43.21 Adjustment disorder with depressed mood Active Diagnosis [facility] Diagnosis: ICD-10-CM Z63.0 Problems in relationship with spouse or partner Active Diagnosis [facility] Diagnosis: ICD-10-CM Z65.3 Problems related to other legal circumstances Active Diagnosis RAMONE KESSLER [facility] Diagnosis: ICD-10-CM F32.A Depression, unspecified Active Diagnosis [facility] Diagnosis: ICD-10-CM F33.1 Major depressive disorder, recurrent, moderate Active Diagnosis [facility] Diagnosis: ICD-10-CM F41.1 Generalized anxiety disorder Active Diagnosis [facility] Diagnosis: ICD-10-CM F43.20 Adjustment disorder, unspecified Active Diagnosis . [facility] Diagnosis: ICD-10-CM M25.571 Pain in right ankle and joints of right foot Active Diagnosis . [facility] Allergies, Adverse Reactions, Alerts Combined list of allergies from Department of 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 It does not include entries that were removed or entered in error. Substance Category Reaction Severity Reaction type Status Date Reported Comments Source No Known Allergies Drug allergy (disorder) active 06/08/2016 [facility] [place] Immunizations Combined list of available immunizations from the Department of 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 Immunization Series Date Given Administered By Site Reaction Lot Number CVX Code Drug Sales And Service Specialist Status Comments Source COVID-19 ([employer]), VECTOR-NR, [id number], PF, 0.5 ML 1 2020 212 complet ed HISTORICA L INFORMATI ON - FROM OTHER REGISTRY, [facility] INFLUENZA, SPLIT VIRUS, QUADRIVALENT, PF 1 2017 150 complet ed HISTORICA L INFORMATI ON - FROM OTHER REGISTRY, [facility] Influenza, injectable, quadrivalent, preservative free 1 2017 [id number] 150 Seqirus (SEQ) comple t ed Influenza , injectabl e, quadrival ent, preservat durga free [facility] ANTHRAX, PRE-EXPOSURE PROPHYLAXIS, POST-EXPOSURE PROPHYLAXIS 2017 24 complet ed HISTORICA L INFORMATI ON - FROM OTHER REGISTRY, [facility] TYPHOID, VICPS 2017 101 complet ed HISTORICA L INFORMATI ON - FROM OTHER REGISTRY, [facility] anthrax vaccine 1 2017 [id number] [employer] [place] [facility] complet ed anthrax vaccine [facility] typhoid Vi capsular polysaccharid e vaccine 1 2017 [id number] 101 Sanofi Pasteur (PMC) complet ed typhoid Vi capsular polysacch aride vaccine DoD Human Papillomaviru s 9-valent vaccine 1 2017 LELE DOMINGUEZ [id number] 165 Merck (MSD) complet ed Human Papilloma virus 9-valent vaccine DoD Influenza, injectable, quadrivalent, preservative free 1 2016 [id number] 150 Seqirus (SEQ) comple t ed Influenza , injectabl e, quadrival ent, preservat durga free [facility] hepatitis A and hepatitis B vaccine 3 2016 [id number] [employer] (SKB) complet ed hepatitis A and hepatitis B vaccine DoD INFLUENZA, SPLIT VIRUS, QUADRIVALENT, PF 1 2016 150 complet ed HISTORICA L INFORMATI ON - FROM OTHER REGISTRY, [facility] Influenza, seasonal, injectable, preservative free 1 2016 [id number] 140 [facility] [employer], Immun[employer]. (CS) complet ed Influenza , seasonal, injectabl e, preservat durga free DoD HPV9 1 2015 165 complet ed HISTORICA L INFORMATI ON - FROM OTHER REGISTRY, [facility] VARICELLA 2 2015 21 complet ed HISTORICA L INFORMATI ON - FROM OTHER REGISTRY, [facility] varicella virus vaccine 2 2015 [id number] 21 Merck (MSD) complet ed varicella virus vaccine DoD hepatitis A and hepatitis B vaccine 2 2015 [id number] [employer]sj[employer] (SKB) complet ed hepatitis A and hepatitis B vaccine DoD ADENOVIRUS TYPES 4 AND 7 2015 143 complet ed HISTORICA L INFORMATI ON - FROM OTHER REGISTRY, [facility] HEP A-HEP B 4 2015 104 complet ed HISTORICA L INFORMATI ON - FROM OTHER REGISTRY, [facility] IPV 5 2015 10 complet ed HISTORICA L INFORMATI ON - FROM OTHER REGISTRY, [facility] MENINGOCOCCAL MCV4P 3 2015 114 complet ed HISTORICA L INFORMATI ON - FROM OTHER REGISTRY, [facility] MMR 3 2015 03 complet ed HISTORICA L INFORMATI ON - FROM OTHER REGISTRY, [facility] TDAP 7 2015 115 complet ed HISTORICA L INFORMATI ON - FROM OTHER REGISTRY, [facility] VARICELLA 1 2015 21 complet ed HISTORICA L INFORMATI ON - FROM OTHER REGISTRY, [facility] measles, mumps and rubella virus vaccine 1 2015 UNK 03 Unknown (UNK) Not Given measles, mumps and rubella virus vaccine [facility] poliovirus vaccine, inactivated 1 2015 [id number] 10 Sanofi Pasteur (PMC) complet ed polioviru s vaccine, inactivat ed DoD varicella virus vaccine 1 2015 [id number] 21 Merck (MSD) complet ed varicella virus vaccine DoD hepatitis A and hepatitis B vaccine 1 2015 [id number] 104 SmithKline (SKB) complet ed hepatitis A and hepatitis B vaccine DoD meningococcal polysaccharid e (groups A, C, Y and W-135) diphtheria toxoid conjugate vaccine (MCV4P) 1 2015 [id number] 114 Sanofi Pasteur (PMC) complet ed meningoco ccal polysacch aride (groups A, C, Y and W-135) diphtheri a toxoid conjugate vaccine (MCV4P) DoD tetanus toxoid, reduced diphtheria toxoid, and acellular pertu is vaccine, adsorbed 1 2015 [id number] 115 [employer] (SKB) complet ed tetanus toxoid, reduced diphtheri a toxoid, and acellular pertussis vaccine, adsorbed DoD Adenovirus, type 4 and type 7, live, oral 1 2015 [id number] 143 [facility] (BR) complet ed Adenoviru s, type 4 and type 7, live, oral DoD MENINGOCOCCAL MCV4P 2 2014 114 complet ed HISTORICA L INFORMATI ON - FROM OTHER REGISTRY, [facility] MENINGOCOCCAL MCV4P 1 2011 114 complet ed HISTORICA L INFORMATI ON - FROM OTHER REGISTRY, [facility] TDAP 6 2011 115 complet ed HISTORICA L INFORMATI ON - FROM OTHER REGISTRY, [facility] NOVEL INFLUENZA-H1N 1-09 1 2008 127 complet ed HISTORICA L INFORMATI ON - FROM OTHER REGISTRY, [facility] DTAP 5 2002 20 complet ed HISTORICA L INFORMATI ON - FROM OTHER REGISTRY, [facility] IPV 4 2002 10 complet ed HISTORICA L INFORMATI ON - FROM OTHER REGISTRY, [facility] MMR 2 2002 03 complet ed HISTORICA L INFORMATI ON - FROM OTHER REGISTRY, [facility] DTAP 4 1999 20 complet ed HISTORICA L INFORMATI ON - FROM OTHER REGISTRY, [facility] HIB, UNSPECIFIED FORMULATION 4 1999 17 complet ed HISTORICA L INFORMATI ON - FROM OTHER REGISTRY, [facility] IPV 3 1999 10 complet ed HISTORICA L INFORMATI ON - FROM OTHER REGISTRY, [facility] MMR 1 1999 03 complet ed HISTORICA L INFORMATI ON - FROM OTHER REGISTRY, [facility] DTAP 3 1997 20 complet ed HISTORICA L INFORMATI ON - FROM OTHER REGISTRY, [facility] HEP B, ADOLESCENT OR PEDIATRIC 3 1997 08 complet ed HISTORICA L INFORMATI ON - FROM OTHER REGISTRY, [facility] HIB-HEP B 3 1997 51 complet ed HISTORICA L INFORMATI ON - FROM OTHER REGISTRY, [facility] DTAP 2 1997 20 complet ed HISTORICA L INFORMATI ON - FROM OTHER REGISTRY, [facility] HIB, UNSPECIFIED FORMULATION 2 1997 17 complet ed HISTORICA L INFORMATI ON - FROM OTHER REGISTRY, [facility] TRIVALENT OPV 2 1997 02 complet ed HISTORICA L INFORMATI ON - FROM OTHER REGISTRY, [facility] DTP-HIB 1 1996 22 complet ed HISTORICA L INFORMATI ON - FROM OTHER REGISTRY, [facility] TRIVALENT OPV 1 1996 02 complet ed HISTORICA L INFORMATI ON - FROM OTHER REGISTRY, [facility] HEP B, ADOLESCENT OR PEDIATRIC 2 1996 08 complet ed HISTORICA L INFORMATI ON - FROM OTHER REGISTRY, [facility] HEP B, ADOLESCENT OR PEDIATRIC 1 1996 08 complet ed HISTORICA L INFORMATI ON - FROM OTHER REGISTRY, [facility] Vital Signs Combined list of inpatient and outpatient Vital Signs from Department of Defense and Veterans Affairs, ranging from 12 months to all on record, depending upon the facility. Vital Sign Value Date Comments Source SYSTOLIC BLOOD PRESSURE 116 03/10/2024 15:07:37 [facility] DIASTOLIC BLOOD PRESSURE 76 03/10/2024 15:07:37 [facility] PULSE OXIMETRY 96 03/10/2024 15:07:37 [facility] WEIGHT 222 03/10/2024 15:07:[facility] BMI 31 kg/m2 03/10/2024 15:07:[facility] PAIN 6 03/10/2024 15:07:[facility] TEMPERATURE 98.2 03/10/2024 15:07:37 [facility] PULSE 66 03/10/2024 15:07:[facility] RESPIRATION 20 03/10/2024 15:07:37 [facility] Encounters Combined list of: 1) Encounters from Department of Veterans Affairs facilities going backup to the last 18 months, not all VA inpatient encounters are included; 2) Encounters from the Department of Defense facilities going backup to 280 months. Location Location Details Encounter Type Encounter Number Reason For Visit Attending Provider ADM Date DC Date Status Disposition Source [facility] ) OUTPATIENT [id number] Notes Entered by: ZABRINA WESTON 07 Jun 2016 1558 ------- ------- ------- ------- -- OST IET KENDRICK WESTON 06/07 Released w/o Limitations [facility]) [facility] OUTPATIENT [id number] Notes Entered by: JED HERNANDEZ 08 Jun 2016 0846 ------- ------- ------- ------- -- BLOOD JED HERNANDEZ 06/08 Released w/o Limitations [facility]) [facility] Mckenzie([facility]) OUTPATIENT [id number] Notes Entered by: Luis Daniel MARTIN 08 Jun 2016 1049 ------- ------- ------- ------- -- [address] PONCHO MARTIN 06/08 Released w/o Limitations [facility] Shaver(H[facility] ing Conserv ation) [facility]) OUTPATIENT [id number] Notes Entered by: BIRDIE CHAHAL TTE 12 Jun 2016 1023 ------- ------- ------- ------- -- IMM RANCHO SANTILLAN 06/12 Released w/o Limitations [facility] [place]) [facility] [place]([facility] OUTPATIENT [id number] Notes Entered by: James JEFF 30 Jul 2016 1518 ------- ------- ------- ------- -- CONT MELINDA JEAN 07/30 Released w/o Limitations [facility] [facility] Physical Exams/Wel come Ctr) OUTPATIENT [id number] Notes Entered by: Codie DOVER 29 Nov 2016 0846 ------- ------- ------- ------- -- BHA/LETI VIEYRA 11/29 Released w/o Limitations [place] Phys[facility] l Exams[facility] [place] OUTPATIENT [id number] Pt. states breathi ng concern / Appt per GABBI Moore 01/08 Released w/o Limitations [place] OUTPATIENT [id number] Notes Entered by: Maverick MUNIZ 10 Jan 2017 0838 ------- ------- ------- ------- -- shortne ss of breath, right thigh pain HEMANT HILL 01/10 Released w/o Limitations [place] [place] OUTPATIENT [id number] S/EYE EXAM ELIANE MEJÍA 01/17 Released w/o Limitations [place] OUTPATIENT [id number] Notes Entered by: Rosa Maria BETANCUR 18 Jan 2017 0851 ------- ------- ------- ------- -- sick call/ shortne ss of breath/ congers nitza/ cough/ headach e/ trouble sleepin HEMANT Naidu 01/18 Released w/o Limitations [place] OUTPATIENT [id number] pt. states f/u on Allergi es GABBI HERRERA 01/18 [place]ased w/o Limitations [place] [id number] LILO FOWLER 02/04 Released w/o Limitations [place] OUTPATIENT [id number] right knee pain GABBI HERRERA 02/20 Released with Work/Duty Limitations [place] OUT[place]IENT [id number] Notes Entered by: Rosa Maria BETANCUR 04 Mar 2017 0833 ------- ------- ------- ------- -- Triage/ bug bites from the field ANGELA SIMPSON 03/04 [place]ased w/o Limitations [place] [id number] #[id number] K LILO FOWLER 03/05 Released w/o Limitations [place] OUT[place] [id number] right knee pain GABBI HERRERA KARI 03/11 Released with Work/Duty Limitations [place] [id number] RT KNEE PAIN OWEN WINTERS 03/20 Released with Work/Duty Limitations [place] [id number] Strain of right quadric eps muscle, fascia and tendon, subsequ ent encount POLLO Loaiza 03/28 Released with Work/Duty Limitations [place]) [place] [id number] JEAN-PAUL GUY 03/29 Released w/o Limitations [place] [id number] L knee pain GABBI HERRERA KARI 04/03 Released with Work/Duty Limitations [place] [id number] LAVELLE SAHU 04/10 Released w/o Limitations [place]) [place] [id number] CHUNG ALFORD 04/12 Released w/o Limitations [place] OUTPATIENT [id number] yariele r pain JAVIERGABBI GENAO KARI 04/12 [place]ased w/o Limitations [place] [id number] CHUNG ALFORD 04/15 Released w/o Limitations [place]) [place] [id number] F/U R KNEE POLLO TSANG BONNIE 04/17 Released w/o Limitations [place]) [place] [id number] Deviate d nasal septum CHUNG DU P 04/23 Released w/o Limitations [place] [id number] pt. states f/u both knees GABBI HERRERA 04/30 Released with Work/Duty Limitations [place] OUTPATIENT [id number] pre op may/ rb s.d. 6 sept CHUNG DU P 05/28 Released w/o Limitations [place] OUTPATIENT [id number] pt. states ct scan results GABBI HERRERA 05/30 Released w/o Limitations [place] OUTPATIENT [id number] POST OP, SD WAS JUN 16, POP SPLINTS CHUNG DU P 06/11 Released w/o Limitations [place] [id number] headach GABBI Cardoza KARI 06/19 Released w/o Limitations [place] [id number] hip pain GABBI HERRERA KARI 07/11 Released w/o Limitations [place] [id number] f/u nose CHUNG DU P 07/16 Released w/o Limitations [place] [id number] [facility] Cardoza KARI 07/25 Released w/o Limitations [place] [id number] OverFLAVIA Becker 07/30 Released w/o Limitations [place]PAT[place] [id number] ANNUAL HEARING TETE DONALD 07/31 Released w/o Limitations [place] [id number] headach GABBI Cardoza KARI 08/16 Released w/o Limitations [place] [id number] xray f/u JAVIER GABBI PIERCE 09/02 Released w/o Limitations [place]) [place] [id number] f/u FLAVIA SYKES 09/02 Released w/o Limitations [place] [id number] SPEC PER FLAVIA GUDINO 09/11 Released w/o Limitations [place] [id number] Pt. states R leg ELIGIO JEAN-PAUL L 09/12 Released with Work/Duty Limitations [place] OUT[place] [id number] cant sleep DIPIKA DEL VALLEANDA L 09/25 Released w/o Limitations [place]) [place] [id number] tendont ititis right knee [facility], SHARON 10/02 Released [place]o [place]itations [place]) [place] [id number] RIGHT KNEE INJECTI ON [facility], SHARON 10/03 Released w/o Limitations [place] [id number] initial COOP, LELE P 10/04 Released w/o Limitations [place] [id number] f/up FLAVIA SYKES 10/10 Released w/o Limitations [place] [id number] pt. states foot soles not wking JAVIER, GABBI KARI 10/10 Released w/o Limitations [place] [id number] F/UP RIGHT KNEE INJECTI ON SHARON SALCEDO 10/17 Released w/o Limitations [place] [id number] Flat foot [pes planus] (acquir ed), unspeci fied foot VESNA AMAN M 10/22 Released w/o Limitations [place] [id number] pt. states f/u GABBI HERRERA 10/28 Released w/o Limitations [place] TELE CONSULT [id number] Notes Entered by: JILLIAN MITCHELL 31 Oct 2017 1345 ------- ------- ------- ------- -- Peer Review for IB JILLIAN MITCHELL 10/31 [place] [id number] F/U per LELE Dickinson Bernadine 11/04 Released w/o Limitations [place] TELE CONSULT [id number] Notes Entered by: Maverick MUNIZ 07 Nov 2017 1036 ------- ------- ------- ------- -- PT WAS TOLD TO CALL FOR MRI RESULTS PT#[phone] GABBI HERRERA 11/07 [place]) OUTPATIENT [id number] Insomni a, unspeci fied, R/O GEENA RE SMALLWOOD 11/13 [place]ased w/o Limitations [place] Dis[facility] Blue FP) TELE CONSULT [id number] Notes Entered by: Maverick MUNIZ 19 Nov 2017 1331 ------- ------- ------- ------- -- pt referra l to off post orthope dics was denied pt#[phone] JAVIER GABBI PIERCE 11/19 [place]) [place] [id number] FOLLOW UP [facility] 11/21 Released w/o [place]itations [place] OUT[place] [id number] referGABBI Grimes 11/26 Released w/o Limitations [place] [id number] f/up [facility] 12/05 Released w/o Limitations [place] [id number] ringing in ears GABBI HERRERA 12/06 Released w/o Limitations [place] Disorder [facility]) OUTPATIENT [id number] split night see notes 14feb EMELINA GOMEZ 12/12 Released w/o Limitations [place] Sleep Disorde [facility] OUTPATIENT [id number] f/u nose CHUNG DU P 12/17 Released w/o Limitations [place] OUT[place] [id number] f/u COOPLELE P 12/18 Released w/o Limitations [place]) [place] [id number] TPI for neck pain [facility] SHARON 12/19 Released w/o Limitations [place] OUT[place] [id number] GABBI Marti 12/24 Released w/o Limitations [place] Disorder [facility]) OUTPATIENT [id number] Notes Entered by: Jesi PIERRE 25 Dec 2017 1700 ------- ------- ------- ------- -- PSG Interpr etation SAGAR PIERRE 12/25 Released w/o Limitations [place] Sleep Disorde [facility]) [place] [id number] FOLLOW UP [facility] SHARON 12/30 Released w/o Limitations [place] [id number] Encount er for screeni ng, unspeci TOMER Hudson 01/03 [place]ased w/o Limitations [place] TELE CONSULT [id number] Notes Entered by: Maverick MUNIZ 06 Jan 2018 1314 ------- ------- ------- ------- -- referra GABBI Duque 01/06 [place] [id number] neck pain/pe r LEONIE Bender 01/10 Released w/o Limitations [place] OUTPATIENT [id number] ftr LEONIE HORN 01/14 [place]ased [place]PATIENT [id number] discuss referra anastasia that was denied GABBI HERRERA 01/14 [place] TELE CONSULT [id number] SHARON SALCEDO 01/14 [place] [place]) [place] [id number] [facility]/16 [place]ased [place]itations [place] [id number] f/u LELE MCWILLIAMS 01/21 [place] [id number] f/u GABBI HERRERA 01/22 [place]ased [place] Sleep Disorder [facility]) OUTPATIENT [id number] follow up study results EMELINA GOMEZ 01/27 [place]ased [place] Sleep Disorde [facility] OUTPATIENT [id number] pt[facility] r GABBI [place] 01/28 [place]ased [place]itations [place] TELE CONSULT [id number] Notes Entered by: Maverick MUNIZ 28 Jan 2018 1338 ------- ------- ------- ------- -- pt request a paper profile since E-rosina mcfadden is down GABBI HERRERA 01/28 [place] [place] OUTPATIENT [id number] f/u ct scan CHUNG DU 01/30 [place] [id number] SCOTT Goyal 02/12 [place] [id number] FOOT INSOLES , FOOT PAIN GABBI HERRERA 02/14 [place]itations [place]PAT[place] [id number] ftr HORN , LEONIE 02/17 [place] OUTPATIENT [id number] aqua therapy [facility] 02/18 [place]ased [place]itations [place] OUTPATIENT [id number] ftr [facility] 02/19 [place]ased [place]itations [place] [id number] FOLLOW UP SHARON SALCEDO 02/19 [place] OUTPATIENT [id number] aqua therapy [facility] 02/20 [place]ased [place]itations [place] [id number] f/U on nose JAVIERGABBI KARI 03/05 [place]itations [place] Physical Exam Clinic) OUTPATIENT [id number] PHA UNDER 40/INS GIVE REF ON LINE SURVEY NOEMI BAPTISTE 03/06 [place]ased [place]itations [place] Physica l Exam Clinic[place]) [place] [id number] Pain in unspeci fied foot/Bi lateral 40 min LUZ HINOJOSA 03/07 [place]ased [place]itations [place] OUTPATIENT [id number] [facility] F/U LELE MCWILLIAMS 03/13 [place]ased [place]itations [place] [id number] S/HEARI NG EXAM MAKENNA AGUILERA O 03/18 [place]itations [place] OUTPATIENT [id number] FOLLOW UP RENAE ORTIZ 03/20 [place]itations [place] [place] OUT[place] [id number] ELIANE Castellon 03/20 [place]itations [place] [id number] ftr SCOTT REZA 03/28 [place] [id number] 2 week F/U Bilater LUZ Espinal 03/28 [place]itations [place] TELE CONSULT [id number] Notes Entered by: ME MAGED MCWILLIAMS P 28 Mar 2018 1813 ------- ------- ------- ------- -- Resched uling appt from 19JUL LELE MCWILLIAMS P 03/28 [place] [place] [facility] [place] [facility] [place] OUTPATIENT [id number] h3,tinn ,resche d//[phone] SOLANGE GUAJARDO 04/01 [place]ased [place]itations [place] [facility] [place]) [place] [id number] S/T HENRY KEYS 04/02 [place]ick at Home/Qu[place] [id number] ftr SCOTT REZA 04/07 [place] [id number] Segment al and somatic dysfunc tion of lumbar region AMAN MALAGON 04/09 [place] [id number] ftr SCOTT REZA 04/09 [place]itations [place] [id number] ftr SCOTT REZA 04/11 [place]ased [place] [id number] ftr SCOTT REZA 04/14 [place] [id number] Pain in left ankle and joints of left foot MICHAEL DENNIS 04/14 [place] [id number] Notes Entered by: Rosa Maria BETANCUR 15 Apr 2018 0748 ------- ------- ------- ------- -- 8:00 walk in Per LELE Dickinson P 04/15 [place]itations [place] [id number] SD 21 APRIL CHUNG DU 04/15 [place]itations [place] [id number] ftr SCOTT REZA 04/16 [place]itations [place] [id number] ftr SCOTT REZA 04/18 [place]ased [place]itations [place] [id number] follow up MICHAEL DENNIS 04/29 [place]ased [place]itations [place] [id number] Allergi es/stuf GABBI Soto 05/08 [place]ased w/o Limitations [place] TELE CONSULT [id number] Notes Entered by: MICHAEL DENNIS 13 May 2018 1623 ------- ------- ------- ------- -- Consult MICHAEL DENNIS 05/13 [place] TELE CONSULT [id number] Notes Entered by: GABBI HERRERA 14 May 2018 0835 ------- ------- ------- ------- -- RAD FU GABBI HERRERA 05/14 [place] [id number] f/up AMAN MALAGON 05/14 [place]itations [place] [id number] f/u LELE MCWILLIAMS 05/19 [place]ased w[place]o Limitations [place] TELE CONSULT [id number] Notes Entered by: ME MAGED MCWILLIAMS 19 May 2018 1031 ------- ------- ------- ------- -- Sleep aid GABBI HERRERA 05/19 [place]) [place] [id number] New Consult /New Isuue/R ight Foot-se e Consult LUZ HINOJOSA 05/20 [place]ased [place]itations [place] [id number] sleep meds GABBI HERRERA 05/20 [place]ased w/o Limitations [place] [id number] follow up MICHAEL DENNIS 05/20 [place]ased [place]/o Limitations [place] [id number] ftr SCOTT REZA 05/21 [place]itations [place] [id number] ftr SCOTT REZA 05/23 [place]ased [place]itations [place] [id number] f/u back pain GABBI HERRERA 05/23 [place]ased w/o Limitations [place] [id number] ftr SCOTT REZA 05/26 [place]ased [place]itations [place] [id number] ftr SCOTT REZA 05/28 [place]ased [place]itations [place] [id number] F/U per Mrs. Mcwilliams LELE MCWILLIAMS 06/03 [place]ased w/o Limitations [place] TELE CONSULT [id number] Notes Entered by: ME MAGED MCWILLIAMS 03 Jun 2018 0854 ------- ------- ------- ------- -- Sleep aid not effecti ve GABBI HERRERA 06/03 [place] [id number] meds GABBI HERRERA KARI 06/03 [place]ased w/o Limitations [place] [id number] profile and mri results GABBI HERRERA KARI 06/04 [place]ased w/o Limitations [place] [id number] f/u after MRI LUZ HINOJOSA 06/11 Released with Work/Duty Limitations [place] TELE CONSULT [id number] Notes Entered by: Maverick MUNIZ 17 Jun 2018 0949 ------- ------- ------- ------- -- PT REQUEST CALL IN REF TO PROFILE FOR SURGERY JAVIERGABBI GENAO KARI 06/17 [place] [place] OUTPATIENT [id number] FOLLOW UP ELIAS FARLEY 06/18 Released w/o Limitations [place] [place] [id number] follow up MICHAEL DENNIS 06/20 [place]ased w/o [place]itations [place] [id number] wrist/e lbow pain CONRAD WILKES 06/25 [place]ased w/o Limitations [place] [facility] [place] TELE CONSULT [id number] Notes Entered by: LOUISE AHUMADA 27 Jun 2018 0921 ------- ------- ------- ------- -- MED REVIEW: POLYPHA RMACY [COHORT 5] SLY BARRY 06/27 Other Not Elsewhere Classified [place]LE [place] [id number] Notes Entered by: ABRAHAM APONTE 01 Jul 2018 1552 ------- ------- ------- ------- -- Command er Request Speak with You LUZ HINOJOSA 07/01 [place] [id number] f/up for neck and back / Reasses sment from modalit ies SHARON SALCEDO 07/02 [place]ased [place]IENT [id number] f/U per Mrs. Mcwilliams LELE MCWILLIAMS 07/03 [place]ased [place]/o Limitations [place] TELE CONSULT [id number] Notes Entered by: ME MAGED CMWILLIAMS P 03 Jul 2018 1024 ------- ------- ------- ------- -- Medicat GABBI Cazares 07/03 [place]) [place] [id number] Post Surgery Concern s (per Mr. Whitt) LUZ HINOJOSA 07/10 [place]ased [place]itations [place] OUTPATIENT [id number] ftr JESICA MASON 07/11 Released w/o Limitations [place] [place] [id number] per ms coLELE Foy P 07/15 [place]ased w/o Limitations [place] [id number] Discuss Surgery / Per LUZ Hall 07/15 [place]ased [place]itations [place] [id number] Notes Entered by: Rosa Maria BETANCUR 17 Jul 2018 0944 ------- ------- ------- ------- -- walk in Alpha stem LELE MCWILLIAMS P 07/17 [place]ased w/o [place]itations [place] [id number] Notes Entered by: Rosa Maria BETANCUR 18 Jul 2018 0938 ------- ------- ------- ------- -- 10:00/ alpha Stim LELE MCWILLIAMS P 07/18 [place]ased w/o Limitations [place] [id number] Notes Entered by: Maverick MUNIZ 21 Jul 2018 1300 ------- ------- ------- ------- -- Alpha Stim LELE MCWILLIAMS P 07/21 [place]ased w/o Limitations [place] OUT[place]IENT [id number] migrain es GABIB HERRERA 07/21 [place]ased w/o Limitations [place] [id number] f/u r LUZ Ramos 07/22 [place]ased [place]o [place]itations [place] [id number] FOLLOW UP SHARON SALCEDO 07/23 [place]ased w/o [place]itations [place] TELE CONSULT [id number] Notes Entered by: Maverick MUNIZ 23 Jul 2018 1100 ------- ------- ------- ------- -- profile concern s GABBI HERRERA 07/23 [place] TELE CONSULT [id number] Notes Entered by: Maverick MUNIZ 25 Jul 2018 1008 ------- ------- ------- ------- -- PT STS HE HAS QUESTIO NS IN REF TO HIS MEB STATUS RAY FRIAS 07/25 [place] [id number] Notes Entered by: Blake YOST 25 Jul 2018 1229 ------- ------- ------- ------- -- Petrona Joey [facility] OLIVIER Roberts 07/25 Released w/o Limitations [place] OUTPATIENT [id number] ftr JESICA MASON 07/25 Released w/o Limitations [place] [place] [id number] wrist pain/la teral epicond ylitis evaluat e and treat CHUNG CONRAD KARMEN 07/28 [place]ased w/o Limitations [place] [facility] [place] [id number] Notes Entered by: Blake YOST 28 Jul 2018 0949 ------- ------- ------- ------- -- NCM referra l- 13ESC/ ankle pain MEHUL CORDERO 07/28 Released with Work/Duty Limitations [place] [id number] discuss MEB GABBI HERRERA 07/28 [place]ased w/o Limitations [place] [id number] NECK AND BACK/PE R LEONIE TORRES 07/29 [place]itations [place] [id number] Notes Entered by: Maverick MUNIZ 30 Jul 2018 1007 ------- ------- ------- ------- -- Triage- --diarr ANGELA Hart 07/30 [place]ased w/o [place]itations [place] TELE CONSULT [id number] Notes Entered by: DIANA MASON 30 Jul 2018 1037 ------- ------- ------- ------- -- the patient called stated he was having side effects from the duloxet ine JESICA MASON 07/30 [place] [place]) [place] [id number] DIARRHE LILLIAM AGUILAR 07/30 [place] at Home[place]Qu[place] [id number] YOGA LEONIE HORN 07/31 [place]ased [place]/o [place]itations [place] [id number] POOL LEONIE HORN 08/05 Released w/o Limitations [place]IENT [id number] YOGA LEONIE HORN 08/07 Released w/o Limitations [place]) [place] [id number] follow up MICHAEL DENNIS 08/08 Released w/o Limitations [place] [id number] POOL LEONIE HORN 08/12 [place]ased w/o Limitations [place] OUTPATIENT [id number] FTR JESICA MASON 08/13 Released w/o Limitations [place] [place] [id number] Pt. states throwin g up/ Migrain e GABBI HERRERA 08/14 Sick at Home[place]Qu[place] [id number] YOGA/NE CK PAIN HORN , LEONIE 08/18 Released w/o Limitations [place] [id number] POOL/NE CK PAIN HORN , LEONIE 08/19 [place]ased w/o Limitations [place] [id number] re-eval for lat epicond ylitis and wrist pain CONRAD WILKES 08/27 [place]ased w/o Limitations [place] [facility] [place] [id number] POOL/NE CK PAIN HORN , LEONIE 08/28 Released w/o [place]itations [place] [place] [id number] bilat lat epic HELM, JEAN-PAUL K 08/29 Released w/o Limitations [place] [place] [id number] MEB GABBI HERRERAY 09/01 Released w/o Limitations [place] [id number] heel lift AMAN MALAGON 09/04 [place]ased w/o Limitations [place] OUTPATIENT [id number] POOL/NE CK PAIN [facility] , LEONIE 09/04 [place]ased w[place]o Limitations [place] [place] [id number] bilat lat epic HELM, JEAN-PAUL K 09/05 Released w/o Limitations [place] [facility] [place] [place]IENT [id number] bilat lat epic HELM, JEAN-PAUL K 09/10 Released w/o Limitations [place] [facility] [place] OUTPATIENT [id number] 5 POOL/NE CK PAIN [facility] , LEONIE 09/11 Released w/o Limitations [place] [place] OUTPATIENT [id number] 2 bilat lat epic HELM, JEAN-PAUL K 09/12 Released w/o Limitations [place] [facility] [place] [id number] FTR/PT. CM Guillermo THERAPY SHARON SALCEDO 09/17 [place]ased w/o Limitations [place] [place] [id number] BILATER AL ELBOW RE-CONRAD GARCIA 10/02 Released w/o Limitations [place] [facility] [place] TELE CONSULT [id number] Notes Entered by: DENNIS WEINSTEIN 03 Oct 2018 1214 ------- ------- ------- ------- -- polypha rmacy cohort 6 RACHEL MOSS 10/03 [place] [id number] f/u LELE MCWILLIAMS 10/14 Released w/o Limitations [place] OUTPATIENT [id number] pt. states f/u on back GABBI HERRERA 10/24 Released w/o Limitations [place]) [place] [id number] follow up MICHAEL DENNIS 10/27 [place]ased w/o [place]itations [place] [id number] Osteoch ondriti s disseca ns, right ankle and joints of right foot/NA RSUM PER REYNA URENA 11/06 Released w/o [place]itations [place] Press [facility] [place] [facility] OUTPATIENT [id number] Pain in unspecLILLIAM Miller 11/20 Released w/o Limitations [place]IENT [id number] THROWIN G UP, DIARRHE A.... GABBI HERRERA 01/14 [place]ick at Home[place]Qu[place] OUTPATIENT [id number] THROWIN G UP,HEAD ACHES,D IARRHEA ..... GABBI HERRERA 01/21 [place]ick at [place]Qu[place] [id number] follow up MICHAEL DENNIS 01/30 Released w/o Limitations [place] [address] [place] [address])(Bas e Operation al Medicine Clin) OUTPATIENT [id number] Civ pre-emp loyment phy//massey s LAKEISHA Nj 03/16 Released w/o Limitations [address] [place] [address])(B ase Operati onal Medicin e Clin) [address] [place] [address])(Bas e Operation al Medicine Clin) OUTPATIENT [id number] preempl oyment physica l civilia n [phone] reminde d to bring LAKEISHA Nj 03/18 Released w/o Limitations [address] [place] [address])(B ase Operati onal Medicin e Clin) [address] [place] [address])(Bas e Operation al Medicine Clin) OUTPATIENT [id number] preempl oyment physcia l civilia n [phone] LAKEISHA WESLEY 03/22 Released w/o Limitations [address] [place] [address])(B ase Operati onal Medicin e Clin) [address] [place] [address])(Cto tt Flight Medicine Tm) OUTPATIENT [id number] Civ Officer PT RICARDO Menchaca 01/26 Released w/o Limitations [address] [place] [address])(S cott Flight Medicin e Tm) [address] [place] [address])(Laura demic Virus) OUTPATIENT [id number] Notes Entered by: Génesis MITCHELL 30 Mar 2021 1038 ------- ------- ------- ------- -- Travel/ Mil/[facility] SFS/Bio fire/ AquarisPLUS Int ABHISHEK FONSECA 03/30 Released w/o Limitations [address] [place] [address])(P andemic Virus) [address] [place] [address])([facility]) OUTPATIENT [id number] 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 RICARDO LOVELACE 05/24 Released w/o Limitations [address] [place] [address])(S cott Flight Medicin e Tm) [facility] Outpatient Encounter [id number] Maverick CORADO 01/23 [facility] Outpatient Encounter [id number] Maverick CORADO 03/09 [facility] OFFICE O/P EST MOD 30 MIN [id number] Diagnos is: ICD-10- CM M25.571 Pain in right ankle and joints of right foot OWEN VILLAVICENCIO 03/10 [facility] PSYTX W PT 30 MINUTES [id number] [id number] Diagnos is: ICD-10- CM F43.20 Adjustm ent disorde r, unspeci Codie Longo 08/12 [facility] PSYTX W PT 30 MINUTES [id number] Diagnos is: ICD-10- CM F41.1 General ized anxiety disorde r Codie BARRY 09/08 [facility] Outpatient Encounter [id number] KASSIDY LAMB 09/11 [facility] PSYTX W PT 30 MINUTES [id number] [id number] Diagnos is: ICD-10- CM F41.1 General ized anxiety disorde r Codie BARRY 09/29 [facility] PSYTX W PT 60 MINUTES [id number] [id number] Diagnos is: ICD-10- CM F33.1 Major depress durga disorde r, recurre nt, moderat e MATT TRACEY 10/01 [facility] PSYCHOTHER APY 75149-0.65 [id number] Diagnos is: ICD-10- CM F32.A Depress ion, unspeci fied CHENTE,SHE LBY L 12/09 [facility]YCH[facility] APY 81809-6.65 [id number] Diagnos is: ICD-10- CM F32.A Depress ion, unspeci fied CHENTE,SHE LBY L 12/16 [facility] PSYCHOTHER APY 61195-1.65 [id number] Diagnos is: ICD-10- CM F43.21 Adjustm ent disorde r with depress ed mood CHENTE,SHE LBY L 12/30 [facility] PSYCHOTHER APY 66803-7.65 [id number] Diagnos is: ICD-10- CM F43.21 Adjustm ent disorde r with depress ed mood CHENTE,SHE LBY L 01/06 [facility] PSYCHOTHER APY 79144-7.65 [id number] Diagnos is: ICD-10- CM F43.21 Adjustm ent disorde r with depress ed mood CHENTE,SHE LBY L 01/13 [facility] GROUP PSYCHOTHER APY [id number] Diagnos is: ICD-10- CM F43.21 Adjustm ent disorde r with depress ed mood CHENTE,SHE LBY L 01/20 [facility] CASE [facility]NAGEMENT [id number] Diagnos is: ICD-10- CM Z65.3 Problem s related to other legal circums tances ODALIS ESPARZA 01/[address] [facility] PT EDUCATION NOC INDIVID [id number] Diagnos is: ICD-10- CM Z65.3 Problem s related to other legal circums tances ISAIASODALIS WOOD E 01/[address] [facility] Outpatient Encounter [id number] CHENTE,SHE LBY L 01/27 [facility] Outpatient Encounter [id number] 01/28 [facility] Outpatient Encounter [id number] ODALIS ESPARZA 02/01 [facility] PH1 ASSMT&MGMT NQHP 5-10 [id number] Diagnos is: ICD-10- CM Z63.0 Problem s in relatio nship with spouse or partner LEROY ESPINO 02/01 [facility] GROUP PSYCHOTHER APY [id number] Diagnos is: ICD-10- CM F43.21 Adjustm ent disorde r with depress ed mood CHENTE,SHE LBY L 02/03 [facility] N [facility] GROUP PSYCHOTHER APY [id number] Diagnos is: ICD-10- CM F43.21 Adjustm ent disorde r with depress ed mood CHENTE,SHE LBY L 02/10 [facility] N [facility] GROUP PSYCHOTHER APY [id number] Diagnos is: ICD-10- CM F43.21 Adjustm ent disorde r with depress ed mood CHENTE,SHE LBY L 02/17 [facility] N [facility] GROUP PSYCHOTHER APY [id number] Diagnos is: ICD-10- CM F43.21 Adjustm ent disorde r with depress ed mood CHENTE,SHE LBY L 02/24 [facility] GROUP PSYCHOTHER APY [id number] Diagnos is: ICD-10- CM F43.21 Adjustm ent disorde r with depress ed mood CHENTE,SHE LBY L 03/03 [facility] Procedures Combined list of: 1) Procedures from Department of [facility] Affairs facilities going back up to thelast 18 months, not all VA non-surgical procedures are included; 2) All procedures from the Department of Defense facilities. Procedure Procedure Type Code Date Perfomer Comments Sourc e Acupunct One Or More Varney W/O Stimulation Initial 15 Min Acupunct One Or More Varney W/O Stimulation Initial 15 Min 07738 019 LILLIAM WALL [facility] Acupunct One/More Varney W/O Stim Addl 15 Min W/ Reinsert Acupunct One/More Varney W/O Stim Addl 15 Min W/ Reinsert 25895 019 LILLIAM WALL [facility] Health And Behav A e mt Each 15 Min Pamela e ment Health And Behav Assessmt Each 15 Min Reassessment 42327 019 LELE MCWILLIAMS [facility] Occupational Therapy Re-Evaluation Occupational Therapy Re-Evaluation 75333 019 CONRAD WILKES [facility] Modalities Cryotherapy Cold Packs Modalities Cryotherapy Cold Packs 48667 018 HELM, JEAN-PAUL K 10 MIN FOR ICE MASSAGE. DoD Injection, dexamethasone sodium phosphate, 1 mg 018 HELM, JEAN-PAUL K 1.5 CC DEXAMETHASONE USED DURING [place]. DoD Modalities Iontophoresis Modalities Iontophoresis 23395 018 HELM, JEAN-PAUL K 30 MIN FOR CONSTANT VISUAL ATTENDENCE [place]. [facility] Physical Medicine - Group Physical Therapy Se formerly [facility], [facility]–1983 Physical Medicine - Group Physical Therapy Session 85434 018 LEONIE HORN [facility] Talent Acquisition Administrator Ed Checkout For Ortho/Prosth Use Estab Patient Talent Acquisition Administrator Ed Checkout For Ortho/Prosth Use Estab Patient 97524 018 AMAN MALAGON [facility] Social Work Individual Outpatient Counseling 20-30 Minutes Social Work Individual Outpatient Counseling 20-30 Minutes 33855 018 LUCI CISNEROS DoD Modalities Cryotherapy Cold Packs Modalities Cryotherapy Cold Packs 04422 018 HELM, JEAN-PAUL K 10 MIN FOR ICE MASSAGE TO BILATERAL ELBOWS. DoD Injection, dexamethasone sodium phosphate, 1 mg 018 HELM, JEAN-PAUL K 3 TOTAL CC DEXAMETHASONE USED DURING [place]. 1.5 CC USED PER [place] SITE. DoD Modalities Iontophoresis Modalities Iontophoresis 16385 018 HELM, JEAN-PAUL K 30 MIN FOR CONSTANT VISUAL ATTENDENCE [place]. DoD Injection, dexamethasone sodium phosphate, 1 mg 018 HELM, JEAN-PAUL K 3 TOTAL CC DEXAMETHASONE USED DURING [place]. 1.5 CC USED PER [place] SITE. [facility] Modalities Cryotherapy Cold Packs Modalities Cryotherapy Cold Packs 00250 018 HELM, JEAN-PAUL K 10 MIN FOR ICE MASSAGE. [facility] Modalities Iontophoresis Modalities Iontophoresis 89557 018 HELM, JEAN-PAUL K 30 MIN FOR CONSTANT VISUAL ATTENDENCE [place]. [facility] Physical Medicine - Group Physical Therapy Se ion Physical Medicine - Group Physical Therapy Session 61888 018 [facility] Modalities Cryotherapy Cold Packs Modalities Cryotherapy Cold Packs 49785 018 HELM, JEAN-PAUL K ICE MASSAGE PERFORMED DURING EDUCATION. [facility] Patient Counseling Medical Management Individual Patient Patient Counseling Medical Management Individual Patient 05829 018 HELM, JEAN-PAUL K 10 MIN SM EDUCATION. [facility] Injection, dexamethasone sodium phosphate, 1 mg 018 HELM, JEAN-PAUL K 1.5 CC DEXAMETHASONE USED DURING [place]. [facility] Modalities Iontophoresis Modalities Iontophoresis 80571 018 HELM, JEAN-PAUL K 30 MIN FOR CONSTANT VISUAL ATTENDENCE [place]. [facility] Physical Medicine - Group Physical Therapy Se ion Physical Medicine - Group Physical Therapy Session 77842 0[address] [facility] Modalities Cryotherapy Cold Packs Modalities Cryotherapy Cold Packs 54982 018 CONRAD WILKES [facility] Injection, dexamethasone sodium phosphate, 1 mg 018 CONRAD WILKES [facility] Modalities Iontophoresis Modalities Iontophoresis 06134 018 CONRAD WILKES [facility] Occupational Therapy Re-Evaluation Occupational Therapy Re-Evaluation 97859 018 CONRAD WILKES [facility] Physical Medicine - Group Physical Therapy Se ion Physical Medicine - Group Physical Therapy Session [address] [facility] Physical Medicine - Group Physical Therapy Se ion Physical Medicine - Group Physical Therapy Session 13516 018 [facility] Medication Management By Pharmacist Each Additional 15 Min Medication Management By Pharmacist Each Additional 15 Min 90731 018 JESICA MASON [facility] Med Management By Pharmacist Initial 15 Min Estab Patient Med Management By Pharmacist Initial 15 Min Estab Patient 18659 018 JESICA MASON [facility] Physical Medicine - Group Physical Therapy Se ion Physical Medicine - Group Physical Therapy Session 92135 018 [facility] Physical Medicine - Group Physical Therapy Se ion Physical Medicine - Group Physical Therapy Session 51081 018 [facility] Physical Medicine - Group Physical Therapy Se ion Physical Medicine - Group Physical Therapy Session 71777 018 [facility] Physical Medicine - Group Physical Therapy Se ion Physical Medicine - Group Physical Therapy Session 80015 018 [facility] Physical Medicine - Group Physical Therapy Se ion Physical Medicine - Group Physical Therapy Session 89276 018 [facility] Medication Management By Pharmacist Each Additional 15 Min Medication Management By Pharmacist Each Additional 15 Min 65100 018 JESICA MASON [facility] Med Management By Pharmacist Initial 15 Min Estab Patient Med Management By Pharmacist Initial 15 Min Estab Patient 20021 018 JESICA MASON [facility] Orthopedic Strapping Elbow Orthopedic Strapping Elbow 13008 018 CONRAD WILKES [facility] Occupational Therapy Re-Evaluation Occupational Therapy Re-Evaluation 93784 CONRAD WILKES [facility] Case Management, each 15 minutes 018 OLIVIER YOST [facility] Modalities Electrical Stimulation Unattended Modalities Electrical Stimulation Unattended 90233 COOP, LELE P [facility] Modalities Electrical Stimulation Modalities Electrical Stimulation 68458 018 COOP, LELE P [facility] Health And Behavior Intervention, Each 15 Minutes Individual Health And Behavior Intervention, Each 15 Minutes Individual 19859 018 COOP, LELE P DoD Modalities Electrical Stimulation Unattended Modalities Electrical Stimulation Unattended 59174 018 COOP, LELE P DoD Modalities Electrical Stimulation Modalities Electrical Stimulation 44007 COOP, LELE P DoD Health And Behavior Intervention, Each 15 Minutes Individual Health And Behavior Intervention, Each 15 Minutes Individual 71481 018 COOP, LELE P DoD Modalities Electrical Stimulation Unattended Modalities Electrical Stimulation Unattended 76811 LELE MCWILLIAMS P [facility] Modalities Electrical Stimulation Modalities Electrical Stimulation 14467 LELE MCWILLIAMS P [facility] Health And Behavior Intervention, Each 15 Minutes Individual Health And Behavior Intervention, Each 15 Minutes Individual 34166 LELE MCWILLIAMS P [facility] Psychiatric Therapy Individual Approximately 20-30 Minutes Psychiatric Therapy Individual Approximately 20-30 Minutes 74231 ROSCOEBEN R [facility] Modalities Electrical Stimulation Attended Each 15 Minutes Modalities Electrical Stimulation Attended Each 15 Minutes 20666 LELE MCWILLIAMS P [facility] Modalities Electrical Stimulation Device Placement Modalities Electrical Stimulation Device Placement 37154 LELE MCWILLIAMS P [facility] Modalities Electrical Stimulation Modalities Electrical Stimulation 29201 LELE MCWILLIAMS P [facility] Health And Behav A e mt Each 15 Min Initial A e ment Health And Behav Assessmt Each 15 Min Initial Assessment 04510 NENITAFRANCESCALELE [facility] Medication Management By Pharmacist Each Additional 15 Min Medication Management By Pharmacist Each Additional 15 Min 57579 018 JESICA MASON [facility] Med Management By Pharmacist Initial 15 Min New Patient Med Management By Pharmacist Initial 15 Min New Patient 52099 018 JESICA MASON [facility] Health And Behav A e mt Each 15 Min [place] e ment Health And Behav Assessmt Each 15 Min Reassessment 20929 LELE MCWILLIAMS [facility] Health And Behav A e mt Each 15 Min [place] e ment Health And Behav Assessmt Each 15 Min Reassessment 20109 NENITAFRANCESCA LELE Colindres [facility] Chiropractic Manip Treatmt (CMT) Extraspinal One Or More Reg Chiropractic Manip Treatmt (CMT) Extraspinal One Or More Reg 78078 018 SCOTT REZA [facility] Chiropractic Manip Treatmt (CMT) Spinal Three To Four Region Chiropractic Manip Treatmt (CMT) Spinal Three To Four Region 60890 018 SCOTT REZA [facility] Chiropractic Manip Treatmt (CMT) Extraspinal One Or More Reg Chiropractic Manip Treatmt (CMT) Extraspinal One Or More Reg 49755 018 SCOTT REZA [facility] Chiropractic Manip Treatmt (CMT) Spinal Three To Four Region Chiropractic Manip Treatmt (CMT) Spinal Three To Four Region 02005 018 SCOTT REZA Chiropractic Manip Treatmt (CMT) Extraspinal One Or More Reg Chiropractic Manip Treatmt (CMT) Extraspinal One Or More Reg 26702 018 SCOTT REZA [facility] Chiropractic Manip Treatmt (CMT) Spinal Three To Four Region Chiropractic Manip Treatmt (CMT) Spinal Three To Four Region 50608 018 SCOTT REZA Chiropractic Manip Treatmt (CMT) Extraspinal One Or More Reg Chiropractic Manip Treatmt (CMT) Extraspinal One Or More Reg 99587 018 SCOTT REZA [facility] Chiropractic Manip Treatmt (CMT) Spinal Three To Four Region Chiropractic Manip Treatmt (CMT) Spinal Three To Four Region 20851 018 SCOTT REZA [facility] Health And Behav A e mt Each 15 Min Pamela e ment Health And Behav Assessmt Each 15 Min Reassessment 31709 018 LELE MCWILLIAMS [facility] Talent Acquisition Administrator Ed Checkout For Ortho/Prosth Use Estab Patient Talent Acquisition Administrator Ed Checkout For Ortho/Prosth Use Estab Patient 28852 018 AMAN MALAGON [facility] Lift, elevation, heel, per inch 018 AMAN MALAGON 3 Ea. Lifts Left 2 used a firmer crepe [facility] Chiropractic Manip Treatmt (CMT) Extraspinal One Or More Reg Chiropractic Manip Treatmt (CMT) Extraspinal One Or More Reg 61599 018 SCOTT REZA Chiropractic Manip Treatmt (CMT) Spinal Three To Four Region Chiropractic Manip Treatmt (CMT) Spinal Three To Four Region 46811 018 SCOTT REZA [facility] Chiropractic Manip Treatmt (CMT) Spinal Three To Four Region Chiropractic Manip Treatmt (CMT) Spinal Three To Four Region 84859 018 SCOTT REZA Chiropractic Manip Treatmt (CMT) Extraspinal One Or More Reg Chiropractic Manip Treatmt (CMT) Extraspinal One Or More Reg 56568 018 SCOTT REZA Health And Behav A e mt Each 15 Min Pamela e ment Health And Behav Assessmt Each 15 Min Reassessment 90425 018 LELE MCWILLIAMS Chiropractic Manip Treatmt (CMT) Extraspinal One Or More Reg Chiropractic Manip Treatmt (CMT) Extraspinal One Or More Reg 39163 018 SCOTT REZA Chiropractic Manip Treatmt (CMT) Spinal Three To Four Region Chiropractic Manip Treatmt (CMT) Spinal Three To Four Region 08720 018 SCOTT REZA Modalities Electrical Stimulation Modalities Electrical Stimulation 08839 018 SCOTT REZA Chiropractic Manip Treatmt (CMT) Extraspinal One Or More Reg Chiropractic Manip Treatmt (CMT) Extraspinal One Or More Reg 30196 018 SCOTT REZA Chiropractic Manip Treatmt (CMT) Spinal Three To Four Region Chiropractic Manip Treatmt (CMT) Spinal Three To Four Region 05399 018 SCOTT REZA Talent Acquisition Administrator Educ Orthotics Training Additional 15 Minutes Talent Acquisition Administrator Educ Orthotics Training Additional 15 Minutes 62957 018 AMAN MALAGON Lift, elevation, heel, per inch 018 AMAN MALAGON 2 Lifts [facility] Physical Therapy Education Orthotics Training Initial 15 Min Physical Therapy Education Orthotics Training Initial 15 Min 61113 018 AMAN MALAGON Chiropractic Manip Treatmt (CMT) Extraspinal One Or More Reg Chiropractic Manip Treatmt (CMT) Extraspinal One Or More Reg 50458 018 SCOTT REZA Chiropractic Manip Treatmt (CMT) Spinal Three To Four Region Chiropractic Manip Treatmt (CMT) Spinal Three To Four Region 58846 018 SCOTT REZA Chiropractic Manip Treatmt (CMT) Extraspinal One Or More Reg Chiropractic Manip Treatmt (CMT) Extraspinal One Or More Reg 58619 018 SCOTT REZA ECG 12-Lead With Interpretation And Report ECG 12-Lead With Interpretation And Report [id number] MIGDALIAKARENAAJAY RICARDO ABISAI Q-waves in leads II, III, and aVF. Asymptomatic, Baseline ECG [facility] Chiropractic Manip Treatmt (CMT) Spinal Three To Four Region Chiropractic Manip Treatmt (CMT) Spinal Three To Four Region [address] Services Special Review / Reporting Of Patient Status Services Special Review / Reporting Of Patient Status 16987 018 SOLANGE GUAJARDO Acoustic Immittance Test Acoustic Immittance Test 40923 018 SOLANGE GUAJARDO Chiropractic Manip Treatmt (CMT) Extraspinal One Or More Reg Chiropractic Manip Treatmt (CMT) Extraspinal One Or More Reg 75371 018 SCOTT REZA Chiropractic Manip Treatmt (CMT) Spinal Three To Four Region Chiropractic Manip Treatmt (CMT) Spinal Three To Four Region 85664 018 SCOTT REZA Ophthalmological Prior Patient Start Comprehensive Care Ophthalmological Prior Patient Start Comprehensive Care 94943 018 ELIANE MEJÍA Determination Of Refractive State Determination Of Refractive State 65719 018 ELIANE MEJÍA Audiometry Group Testing Audiometry Group Testing 72286 018 RENAE ORTIZ [facility] Ear mold/insert, not disposable, any type 018 APARNA OLIVEROSU A [facility] Ear Protector Attenuation Measurements Ear Protector Attenuation Measurements 13354 018 ARLIN, STANLEY A [facility] Audiometry Group Testing Audiometry Group Testing 55104 018 ARLNI, STANLEY A [facility] Health And Behav A e mt Each 15 Min [place] e [facility] Health And Behav Assessmt Each 15 Min Reassessment 32816 018 LELE MCWILLIAMS Screening Test Of Visual Acuity, Quantitative, Bilateral Screening Test Of Visual Acuity, Quantitative, Bilateral 10364 018 NOEMI KIRBY [facility] Venipuncture Venipuncture 92649 018 NOEMI KIRBY [facility] Physical Medicine - Group Physical Therapy Se ion Physical Medicine - Group Physical Therapy Session 27845 018 [facility] Physical Medicine - Group Physical Therapy Se ion Physical Medicine - Group Physical Therapy Session 93070 018 [facility] Physical Medicine - Group Physical Therapy Se ion Physical Medicine - Group Physical Therapy Session 44129 0[address] [facility] Chiropractic Manip Treatmt (CMT) Extraspinal One Or More Reg Chiropractic Manip Treatmt (CMT) Extraspinal One Or More Reg 57238 018 SCOTT REZA [facility] Chiropractic Manip Treatmt (CMT) Spinal Three To Four Region Chiropractic Manip Treatmt (CMT) Spinal Three To Four Region 73307 018 SCOTT REZA [facility] Health And Behav A e mt Each 15 Min Pamela e ment Health And Behav Assessmt Each 15 Min Reassessment 53302 018 LELE MCWILLIAMS [facility] Physical Medicine - Group Physical Therapy Se ion Physical Medicine - Group Physical Therapy Session 04441 018 [facility] Physical Medicine - Group Physical Therapy Se ion Physical Medicine - Group Physical Therapy Session 22350 0[address] [facility] Evoked Otoacoustic Keira ions Limited Evoked Otoacoustic Emissions Limited 45436 018 TOMER KUHN [facility] Acoustic Reflex Testing Acoustic Reflex Testing 56159 018 TOMER KUHN [facility] Tympanometry Tympanometry 72861 018 TOMER KUHN [facility] Comprehensive Audiometry Comprehensive Audiometry 64353 018 TOMER KUHN [facility] Injection Of Trigger Point(s) Three Or More Muscle Group(s) Injection Of Trigger Point(s) Three Or More Muscle Group(s) 12776 018 SHARON SALCEDO [facility] Health And Behav A e mt Each 15 Min Pamela e ment Health And Behav Assessmt Each 15 Min Reassessment [address]Supervised Group Educational Services -Supervised Group Educational Services 92260 018 RE SMALLWOOD [facility] Health And Behavior Intervention, Each 15 Minutes Individual Health And Behavior Intervention, Each 15 Minutes Individual 59572 018 LELE MCWILLIAMS Health And Behav A e mt Each 15 Min [place] e ment Health And Behav Assessmt Each 15 Min Reassessment 32367 018 LELE MCWILLIAMS Psychiatric Evaluation Review of Records and Reports Psychiatric Evaluation Review of Records and Reports 34346 018 JILLIAN MITCHELL [facility] Immunization Administration One Vaccine Immunization Administration One Vaccine 93338 018 GABBI HERRERA [facility] Talent Acquisition Administrator Educ Orthotics Training Additional 15 Minutes Talent Acquisition Administrator Educ Orthotics Training Additional 15 Minutes 06096 018 AMAN MALAGON Foot, arch support, removable, premolded, longitudinal, each 018 AMAN MALAGON [facility] Physical Therapy Education Orthotics Training Initial 15 Min Physical Therapy Education Orthotics Training Initial 15 Min 20324 018 AMAN MALAGON Physical Medicine Physical Therapy Re-Evaluation Physical Medicine Physical Therapy Re-Evaluation 92990 018 FLAVIA SYKES Health And Behav A e mt Each 15 Min Initial A e ment Health And Behav Assessmt Each 15 Min Initial Assessment 96411 018 LELE MCWILLIAMS PT A e ment Kinetic Training PT Assessment Kinetic Training 61559 017 FLAVIA SYKES Exercises A isted Exercises For ROM Exercises Assisted Exercises For ROM 63085 017 FLAVIA SYKES Physical Medicine Physical Therapy Re-Evaluation Physical Medicine Physical Therapy Re-Evaluation 26329 017 FLAVIA SYKES Ear Protector Attenuation Measurements Ear Protector Attenuation Measurements 17823 TETE DONALD [facility] Ear mold/insert, not disposable, any type TETE DONALD [facility] Audiometry Group Testing Audiometry Group Testing 22623 017 SHABANA TETEJANNY LARRY [facility] Exercises A isted Exercises For ROM Exercises Assisted Exercises For ROM [address] Supervised Injection Intramuscular Supervised Injection Intramuscular 86978 GABBI HERRERA [facility] Injection, dexamethasone sodium phosphate, 1 mg GABBI HERRERA 8mg IM now to right deltoid; tolerated well. (0.1mg/kg; pt 88kg).. [facility] Nasal Endoscopy (diagnostic) Nasal Endoscopy (diagnostic) 66253 CHUNG DU [facility] Physical Medicine Physical Therapy Re-Evaluation Physical Medicine Physical Therapy Re-Evaluation 86609 VI BAUGH [facility] Mobilization Soft Ti ue Mobilization Soft Tissue [address] [facility] Physical or manipulative therapy performed for maintenance rather than latter day VI BAUGH [facility] Physical Therapy: ___ Se ion Segments, 15 Minutes Each Physical Therapy: ___ Session Segments, 15 Minutes Each 34477 017 VI BAUGH [facility] Physical Therapy: ___ Se ion Segments, 15 Minutes Each Physical Therapy: ___ Session Segments, 15 Minutes Each 09079 017 CHUNG ALFORD Physical Therapy: ___ Se ion Segments, 15 Minutes Each Physical Therapy: ___ Session Segments, 15 Minutes Each 82670 017 CHUNG ALFORD Physical Medicine - Group Physical Therapy Se ion Physical Medicine - Group Physical Therapy Session 95808 017 LAVELLE SAHU Physical Therapy: ___ Se ion Segments, 15 Minutes Each Physical Therapy: ___ Session Segments, 15 Minutes Each 77399 017 LAVELLE SAHU Physical Medicine - Group Physical Therapy Se ion Physical Medicine - Group Physical Therapy Session 33283 017 JEAN-PAUL GUY [facility] Physical Therapy: ___ Se ion Segments, 15 Minutes Each Physical Therapy: ___ Session Segments, 15 Minutes Each 54455 017 JEAN-PAUL GUY [facility] Physical Therapy Neuromuscular Re-education Physical Therapy Neuromuscular Re-education 94237 017 POLLO TSANG [facility] Physical Therapy: ___ Se ion Segments, 15 Minutes Each Physical Therapy: ___ Session Segments, 15 Minutes Each 62782 017 POLLO TSANG Allergy Percutaneous tests - allergenic extracts Allergy Percutaneous tests - allergenic extracts 60623 017 LILO FOWLER Ophthalmological New Patient Start Comprehensive Care Ophthalmological New Patient Start Comprehensive Care 11850 017 ELIANE MEJÍA Determination Of Refractive State Determination Of Refractive State 62276 017 ELIANE MEJÍA Hepatitis A And Hepatitis B (Intramuscular Use) Adult Dosage Hepatitis A And Hepatitis B (Intramuscular Use) Adult Dosage 74104 016 MELINDA GREENBERG Vaccines Viral Varicella (Active) Vaccines Viral Varicella (Active) 25212 016 MELINDA GREENBERG Immunization Administration Each Additional Vaccine Immunization Administration Each Additional Vaccine 66024 016 MELINDA GREENBERG Immunization Administration One Vaccine Immunization Administration One Vaccine [address] Supervised Injection Intramuscular Antibiotic Supervised Injection Intramuscular Antibiotic 38128 016 RANCHO MIRELES Vaccines Viral Polio, Inactivated (Salk) Vaccines Viral Polio, Inactivated (Salk) 67036 016 RANCHO MIRELES Meningococcal Polysacch Diphtheria Toxoid Conjugate Vaccine 016 RANCHO MIRELES Vaccines Viral Varicella (Active) Vaccines Viral Varicella (Active) 82965 016 RANCHO MIRELES Hepatitis A And Hepatitis B (Intramuscular Use) Adult Dosage Hepatitis A And Hepatitis B (Intramuscular Use) Adult Dosage 45076 016 RANCHO MIRELES Immunization Admin By Intranasal / Oral Route One Vaccine Immunization Admin By Intranasal / Oral Route One Vaccine 20201 016 RANCHO MIRELES Immunization Admin Intranasal / Oral Each Additional Vaccine Immunization Admin Intranasal / Oral Each Additional Vaccine 39402 016 RANCHO MIRELES Immunization Administration Each Additional Vaccine Immunization Administration Each Additional Vaccine 13586 016 TR[place]-RANCHO RUSS [facility] Vaccines Adenovirus Type 4 Live, For Oral Use Vaccines Adenovirus Type 4 Live, For Oral Use 13493 TR[place]-RANCHO RUSS [facility] Vaccines Adenovirus Type 7 Live, For Oral Use Vaccines Adenovirus Type 7 Live, For Oral Use 78880 RANCHO MIRELES [facility] Tdap Vaccine Seven Years Of Age And Above Tdap Vaccine Seven Years Of Age And Above 82649 TROYRANCHO RUSS [facility] Threshold Audiogram (Pure Tone) Automated Threshold Audiogram (Pure Tone) Automated 0208T PONCHO MARTIN [facility] Ear mold/insert, not disposable, any type PONCHO MARTIN Patient education, not otherwise cla ified, non-physician provider, group, per se ion PONCHO MARTIN [facility] -Supervised Specimen Handling / Transfer: Office To Lab -Supervised Specimen Handling / Transfer: Office To Lab [id number] [facility] Venipuncture Venipuncture [address] [facility] Ophthalmological New Patient [facility] Ophthalmological New Patient [facility] [id number] [address] [facility] HEPATITIS A AND HEPATITIS B VACCINE (HEPA-HEPB), ADULT DOSAGE, FOR INTRAMUSCULAR USE [facility] TETANUS, DIPHTHERIA TOXOIDS AND ACELLULAR PERTUSSIS VACCINE (TDAP), WHEN ADMINISTERED TO INDIVIDUALS 7 YEARS OR OLDER, FOR INTRAMUSCULAR USE [facility] PATIENT EDUCATION, NOT OTHERWISE CLASSIFIED, NON-PHYSICIAN PROVIDER, GROUP, PER SESSION [facility] HANDLING AND/OR CONVEYANCE OF SPECIMEN FOR TRANSFER FROM THE OFFICE TO A LABORATORY [facility] OPHTHALMOLOGICAL SERVICES: MEDICAL EXAMINATION AND EVALUATION WITH INITIATION OF DIAGNOSTIC AND TREATMENT PROGRAM; COMPREHENSIVE, NEW PATIENT, 1 OR MORE VISITS [facility] ADMINISTRATION OF PATIENT-FOCUSED HEALTH RISK ASSESSMENT INSTRUMENT (EG, HEALTH HAZARD APPRAISAL) WITH SCORING AND DOCUMENTATION, PER STANDARDIZED INSTRUMENT [facility] ACUPUNCTURE, 1/MORE NEEDLES; WO ELECTRICAL STIMULATION, EA ADDITIONAL 15 MINUTES, PERSONAL ONE-ON-ONE CONTACT W THE PATIENT, W RE-INSERTION, NEEDLE(S) (LIST SEPARATELY ADDITION CODE, 1 PROCEDURE) [facility] BRIEF EMOTIONAL/BEHAVIORAL ASSESSMENT (EG, DEPRESSION INVENTORY, ATTENTION-DEFICIT/HY PERACTIVITY DISORDER [ADHD] SCALE), WITH SCORING AND DOCUMENTATION, PER STANDARDIZED INSTRUMENT [facility] RE-EVALUATION OF OCCUPATIONAL THERAPY ESTABLISHED PLAN OF CARE,REQ:ASSESS CHANGES IN PAT FUNCT/MED STATUS W REVISED PLAN OF CARE;TYPICALLY, 30 MINUTES ARE SPENT [id number] WITH THE PATIENT &/FAMILY [facility] APPLICATION OF A MODALITY TO 1 OR MORE AREAS; HOT OR COLD PACKS [facility] THERAPEUTIC PROCEDURE(S), GROUP (2 OR MORE INDIVIDUALS) [facility] BRIEF EMOTIONAL/BEHAVIORAL ASSESSMENT (EG, DEPRESSION INVENTORY, ATTENTION-DEFICIT/HY PERACTIVITY DISORDER [ADHD] SCALE), WITH SCORING AND DOCUMENTATION, PER STANDARDIZED INSTRUMENT [facility] APPLICATION OF A MODALITY TO 1 OR MORE AREAS; HOT OR COLD PACKS [facility] APPLICATION OF A MODALITY TO 1 OR MORE AREAS; HOT OR COLD PACKS [facility] THERAPEUTIC PROCEDURE(S), GROUP (2 OR MORE INDIVIDUALS) [facility] ORTHOTIC(S)/PROSTHET IC(S) MANAGEMENT AND/OR TRAINING, UPPER EXTREMITY(IES), LOWER EXTREMITY(IES), AND/OR TRUNK, SUBSEQUENT ORTHOTIC(S)/PROSTHET IC(S) ENCOUNTER, EACH 15 MINUTES APPLICATION OF A MODALITY TO 1 OR MORE AREAS; HOT OR COLD PACKS DoD THERAPEUTIC PROCEDURE(S), GROUP (2 OR MORE INDIVIDUALS) [facility] APPLICATION OF A MODALITY TO 1 OR MORE AREAS; HOT OR COLD PACKS DoD THERAPEUTIC PROCEDURE(S), GROUP (2 OR MORE INDIVIDUALS) DoD THERAPEUTIC PROCEDURE(S), GROUP (2 OR MORE INDIVIDUALS) [facility] MEDICATION THERAPY MGT SERVICE(S) PROVIDED,A PHARMACIST,INDIV,FAC E-TO-FACE W PATIENT,WITH ASSESS & INTERVENE IF PROVIDED;EA ADDITION 15 MINUTES (LIST SEPARATELY IN ADDITION TO CODE FOR PRIM SERVICE) DoD THERAPEUTIC PROCEDURE(S), GROUP (2 OR MORE INDIVIDUALS) [facility] THERAPEUTIC PROCEDURE(S), GROUP (2 OR MORE INDIVIDUALS) [facility] THERAPEUTIC PROCEDURE(S), GROUP (2 OR MORE INDIVIDUALS) [facility] THERAPEUTIC PROCEDURE(S), GROUP (2 OR MORE INDIVIDUALS) [facility] THERAPEUTIC PROCEDURE(S), GROUP (2 OR MORE INDIVIDUALS) [facility] STRAPPING; ELBOW OR WRIST [facility] MEDICATION THERAPY MGT SERVICE(S) PROVIDED,A PHARMACIST,INDIV,FAC E-TO-FACE W PATIENT,WITH ASSESS & INTERVENE IF PROVIDED;EA ADDITION 15 MINUTES (LIST SEPARATELY IN ADDITION TO CODE FOR PRIM SERVICE) [facility] CASE MANAGEMENT, EACH 15 MINUTES [facility] APPLICATION OF A MODALITY TO 1 OR MORE AREAS; ELECTRICAL STIMULATION (UNATTENDED) [facility] HEALTH AND BEHAVIOR INTERVENTION, EACH 15 MINUTES, [id number]; INDIVIDUAL [facility] BRIEF EMOTIONAL/BEHAVIORAL ASSESSMENT (EG, DEPRESSION INVENTORY, ATTENTION-DEFICIT/HY PERACTIVITY DISORDER [ADHD] SCALE), WITH SCORING AND DOCUMENTATION, PER STANDARDIZED INSTRUMENT [facility] APPLICATION OF A MODALITY TO 1 OR MORE AREAS; ELECTRICAL STIMULATION (UNATTENDED) [facility] APPLICATION OF A MODALITY TO 1 OR MORE AREAS; ELECTRICAL STIMULATION (MANUAL), EACH 15 MINUTES [facility] MEDICATION THERAPY MGT SERVICE(S) PROVIDED,A PHARMACIST,INDTEETEE,FAC E-TO-FACE W PATIENT,WITH ASSESS & INTERVENE IF PROVIDED;EA ADDITION 15 MINUTES (LIST SEPARATELY IN ADDITION TO CODE FOR PRIM SERVICE) [facility] BRIEF EMOTIONAL/BEHAVIORAL ASSESSMENT (EG, DEPRESSION INVENTORY, ATTENTION-DEFICIT/HY PERACTIVITY DISORDER [ADHD] SCALE), WITH SCORING AND DOCUMENTATION, PER STANDARDIZED INSTRUMENT [facility] OCCUPATIONAL THERAPY EVALUATION, MODERATE COMPLEXITY,REQ:OCCUP PROF &MED &THER HIST;ASSESS,3-5 PERF DEF;CLIN DECIS MAKING MOD COMPLEXITY,TYPICALLY ,45 MIN ARE SPENT [id number] W THE PATIENT &/FAMILY [facility] BRIEF EMOTIONAL/BEHAVIORAL ASSESSMENT (EG, DEPRESSION INVENTORY, ATTENTION-DEFICIT/HY PERACTIVITY DISORDER [ADHD] SCALE), WITH SCORING AND DOCUMENTATION, PER STANDARDIZED INSTRUMENT [facility] CHIROPRACTIC MANIPULATIVE TREATMENT (CMT); EXTRASPINAL, 1 OR MORE REGIONS [facility] CHIROPRACTIC MANIPULATIVE TREATMENT (CMT); EXTRASPINAL, 1 OR MORE REGIONS [facility] CHIROPRACTIC MANIPULATIVE TREATMENT (CMT); EXTRASPINAL, 1 OR MORE REGIONS [facility] CHIROPRACTIC MANIPULATIVE TREATMENT (CMT); EXTRASPINAL, 1 OR MORE REGIONS [facility] BRIEF EMOTIONAL/BEHAVIORAL ASSESSMENT (EG, DEPRESSION INVENTORY, ATTENTION-DEFICIT/HY PERACTIVITY DISORDER [ADHD] SCALE), WITH SCORING AND DOCUMENTATION, PER STANDARDIZED INSTRUMENT [facility] LIFT, ELEVATION, HEEL, PER INCH [facility] UNLISTED SPECIAL SERVICE, PROCEDURE OR REPORT [facility] CHIROPRACTIC MANIPULATIVE TREATMENT (CMT); EXTRASPINAL, 1 OR MORE REGIONS [facility] CHIROPRACTIC MANIPULATIVE TREATMENT (CMT); EXTRASPINAL, 1 OR MORE REGIONS [facility] BRIEF EMOTIONAL/BEHAVIORAL ASSESSMENT (EG, DEPRESSION INVENTORY, ATTENTION-DEFICIT/HY PERACTIVITY DISORDER [ADHD] SCALE), WITH SCORING AND DOCUMENTATION, PER STANDARDIZED INSTRUMENT [facility] CHIROPRACTIC MANIPULATIVE TREATMENT (CMT); EXTRASPINAL, 1 OR MORE REGIONS [facility] APPLICATION OF A MODALITY TO 1 OR MORE AREAS; ELECTRICAL STIMULATION (MANUAL), EACH 15 MINUTES [facility] CHIROPRACTIC MANIPULATIVE TREATMENT (CMT); EXTRASPINAL, 1 OR MORE REGIONS [facility] LIFT, ELEVATION, HEEL, PER INCH [facility] CHIROPRACTIC MANIPULATIVE TREATMENT (CMT); EXTRASPINAL, 1 OR MORE REGIONS [facility] SPECIAL REPORTS SUCH INSURANCE FORMS, MORE THAN THE INFORMATION CONVEYED IN THE USUAL MEDICAL COMMUNICATIONS OR STANDARD REPORTING FORM [facility] CHIROPRACTIC MANIPULATIVE TREATMENT (CMT); SPINAL, 3-4 REGIONS [facility] DETERMINATION OF REFRACTIVE STATE [facility] AUDIOMETRIC TESTING OF GROUPS [facility] EAR MOLD/INSERT, NOT DISPOSABLE, ANY TYPE [facility] BRIEF EMOTIONAL/BEHAVIORAL ASSESSMENT (EG, DEPRESSION INVENTORY, ATTENTION-DEFICIT/HY PERACTIVITY DISORDER [ADHD] SCALE), WITH SCORING AND DOCUMENTATION, PER STANDARDIZED INSTRUMENT [facility] SCREENING TEST OF VISUAL ACUITY, QUANTITATIVE, BILATERAL [facility] THERAPEUTIC PROCEDURE(S), GROUP (2 OR MORE INDIVIDUALS) [facility] THERAPEUTIC PROCEDURE(S), GROUP (2 OR MORE INDIVIDUALS) [facility] THERAPEUTIC PROCEDURE(S), GROUP (2 OR MORE INDIVIDUALS) [facility] THERAPEUTIC PROCEDURE(S), GROUP (2 OR MORE INDIVIDUALS) [facility] ANTHRAX VACCINE, FOR SUBCUTANEOUS OR INTRAMUSCULAR USE [facility] CHIROPRACTIC MANIPULATIVE TREATMENT (CMT); EXTRASPINAL, 1 OR MORE REGIONS [facility] BRIEF EMOTIONAL/BEHAVIORAL ASSESSMENT (EG, DEPRESSION INVENTORY, ATTENTION-DEFICIT/HY PERACTIVITY DISORDER [ADHD] SCALE), WITH SCORING AND DOCUMENTATION, PER STANDARDIZED INSTRUMENT [facility] THERAPEUTIC PROCEDURE(S), GROUP (2 OR MORE INDIVIDUALS) [facility] THERAPEUTIC PROCEDURE(S), GROUP (2 OR MORE INDIVIDUALS) [facility] DISTORTION PRODUCT EVOKED OTOACOUS EMISSIONS;LIMITED EVALUATION (TO CONFIRM THE PRESENCE/ABSENCE OF HEARING DISORDER,3-6 FREQUENCIES)/TRANSIE NT EVOKED OTOACOUS EMISSIONS,W INTERPRETATION &REPORT [facility] POLYSOMNOGRAPHY; AGE 6 YEARS OR OLDER, SLEEP STAGING WITH 4 OR MORE ADDITIONAL PARAMETERS OF SLEEP, ATTENDED BY A TECHNOLOGIST [facility] INJECTION(S); SINGLE OR MULTIPLE TRIGGER POINT(S), 3 OR MORE MUSCLES [facility] BRIEF EMOTIONAL/BEHAVIORAL ASSESSMENT (EG, DEPRESSION INVENTORY, ATTENTION-DEFICIT/HY PERACTIVITY DISORDER [ADHD] SCALE), WITH SCORING AND DOCUMENTATION, PER STANDARDIZED INSTRUMENT [facility] POLYSOMNOGRAPHY; AGE 6 YEARS OR OLDER, SLEEP STAGING WITH 4 OR MORE ADDITIONAL PARAMETERS OF SLEEP, ATTENDED BY A TECHNOLOGIST [facility] ARTHROCENTESIS, ASPIRATION AND/OR INJECTION, MAJOR JOINT OR BURSA (EG, SHOULDER, HIP, KNEE, SUBACROMIAL BURSA); WITH ULTRASOUND GUIDANCE, WITH PERMANENT RECORDING AND REPORTING [facility] PHYS/OTH QUALIFIED HEALTH MENTALLY IMPAIRED TEACHER QUALIFIED,EDUCATION, TRAIN,LICENSURE/REGU LATION (WHEN APPLICABLE) EDUC SER RENDERED TO PATS IN A GRP SETTING (EG,,OBESITY ,OR DIABETIC INSTRUCT) [facility] BRIEF EMOTIONAL/BEHAVIORAL ASSESSMENT (EG, DEPRESSION INVENTORY, ATTENTION-DEFICIT/HY PERACTIVITY DISORDER [ADHD] SCALE), WITH SCORING AND DOCUMENTATION, PER STANDARDIZED INSTRUMENT [facility] PSYCHIATRIC EVALUATION OF HOSPITAL RECORDS, OTHER PSYCHIATRIC REPORTS, PSYCHOMETRIC AND/OR PROJECTIVE TESTS, AND OTHER ACCUMULATED DATA FOR MEDICALDIAGNOSTIC PURPOSES [facility] IMMUNIZATION ADMINISTRATION (INCLUDES PERCUTANEOUS, INTRADERMAL, SUBCUTANEOUS, OR INTRAMUSCULAR INJECTIONS); 1 VACCINE (SINGLE OR COMBINATION VACCINE/TOXOID) [facility] ORTHOTIC(S) MANAGEMENT AND TRAINING (INCLUDING ASSESSMENT AND FITTING WHEN NOT OTHERWISE REPORTED),UPPER EXTREMITY(IES),LOWER EXTREMITY(IES) AND/OR TRUNK,INITIAL ORTHOTIC(S) ENCOUNTER,EACH 15 MINUTES [facility] RE-EVAL,PHYSICAL THERAPY EST PLAN OF CARE,REQ:EXAM,REV,HX & USE,STAND TESTS &KAYLA REQ;REV PLAN OF CARE USING STAND PAT ASSESS INSTR &/KAYLA ASSESS FUNC OUTCOME TYP,20 MIN SPENT [id number] W PAT&/FAM [facility] BRIEF EMOTIONAL/BEHAVIORAL ASSESSMENT (EG, DEPRESSION INVENTORY, ATTENTION-DEFICIT/HY PERACTIVITY DISORDER [ADHD] SCALE), WITH SCORING AND DOCUMENTATION, PER STANDARDIZED INSTRUMENT [facility] ARTHROCENTESIS, ASPIRATION AND/OR INJECTION, MAJOR JOINT OR BURSA (EG, SHOULDER, HIP, KNEE, SUBACROMIAL BURSA); WITH ULTRASOUND GUIDANCE, WITH PERMANENT RECORDING AND REPORTING [facility] THERAPEUTIC ACTIVITIES, DIRECT (ONE-ON-ONE) PATIENT CONTACT (USE OF DYNAMIC ACTIVITIES TO IMPROVE FUNCTIONAL PERFORMANCE), EACH 15 MINUTES [facility] THERAPEUTIC PROCEDURE, 1 OR MORE AREAS, EACH 15 MINUTES; THERAPEUTIC EXERCISES TO DEVELOP STRENGTH AND ENDURANCE, RANGE OF MOTION AND FLEXIBILITY [facility] EAR MOLD/INSERT, NOT DISPOSABLE, ANY TYPE [facility] THERAPEUTIC PROCEDURE, 1 OR MORE AREAS, EACH 15 MINUTES; THERAPEUTIC EXERCISES TO DEVELOP STRENGTH AND ENDURANCE, RANGE OF MOTION AND FLEXIBILITY [facility] INJECTION, DEXAMETHASONE SODIUM PHOSPHATE, 1 MG [facility] POSTOPERATIVE FOLLOW-UP VISIT, NORMALLY INCLUDED IN THE SURGICAL PACKAGE, INDICATE THAT EVALUATION & MANAGEMENT SERVICE WAS PERFORMED DURING A POSTOPERATIVE PERIOD REASON RELATED ORIGINAL PROCEDURE [facility] POSTOPERATIVE FOLLOW-UP VISIT, NORMALLY INCLUDED IN THE SURGICAL PACKAGE, INDICATE THAT EVALUATION & MANAGEMENT SERVICE WAS PERFORMED DURING A POSTOPERATIVE PERIOD REASON RELATED ORIGINAL PROCEDURE [facility] UNLISTED SPECIAL SERVICE, PROCEDURE OR REPORT [facility] NASAL ENDOSCOPY, DIAGNOSTIC, UNILATERAL OR BILATERAL (SEPARATE PROCEDURE) [facility] PHYSICAL OR MANIPULATIVE THERAPY PERFORMED FOR MAINTENANCE RATHER THAN MUSLIM [facility] THERAPEUTIC PROCEDURE, 1 OR MORE AREAS, EACH 15 MINUTES; THERAPEUTIC EXERCISES TO DEVELOP STRENGTH AND ENDURANCE, RANGE OF MOTION AND FLEXIBILITY [facility] THERAPEUTIC PROCEDURE, 1 OR MORE AREAS, EACH 15 MINUTES; THERAPEUTIC EXERCISES TO DEVELOP STRENGTH AND ENDURANCE, RANGE OF MOTION AND FLEXIBILITY [facility] THERAPEUTIC PROCEDURE(S), GROUP (2 OR MORE INDIVIDUALS) [facility] THERAPEUTIC PROCEDURE(S), GROUP (2 OR MORE INDIVIDUALS) [facility] THERAPEUTIC PROCEDURE,1 OR MORE AREAS,EACH 15 MINUTES;NEUROMUSCULA R REEDUCATION OF MOVEMENT,BALANCE,ETCHER AIRCRAFT RDINATION,KINESTHETI C SENSE,POSTURE,AND/OR PROPRIOCEPTION FOR SITTING AND/OR STANDING ACTIVITIES [facility] HEPATITIS A AND HEPATITIS B VACCINE (HEPA-HEPB), ADULT DOSAGE, FOR INTRAMUSCULAR USE [facility] PERCUTANEOUS TESTS (SCRATCH, PUNCTURE, PRICK) WITH ALLERGENIC EXTRACTS, IMMEDIATE TYPE REACTION, INCLUDING TEST INTERPRETATION AND REPORT, SPECIFY NUMBER OF TESTS [facility] DETERMINATION OF REFRACTIVE STATE [facility] PSYCHIATRIC DIAGNOSTIC EVALUATION [facility] INFLUENZA VIRUS VACCINE, TRIVALENT (IIV3), SPLIT VIRUS, PRESERVATIVE FREE, 0.5 ML DOSAGE, FOR INTRAMUSCULAR USE [facility] Social History Combined list of available smoking, tobacco, and other social history from Department of 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 Social History Type Response Date Comment Sourc e Tobacco smoking status NHIS [facility] NEVER USED 03/10/2024 [facility] History of tobacco use [facility]-TOBACCO NEVER USED 11/05/2022 [facility] History of tobacco use VA-TOBACCO NEVER USED 07/13/2020 [facility] History of tobacco use [facility]-TOBACCO NEVER USED 07/07/2019 [facility] History of tobacco use VA-TOBACCO NEVER USED 04/21/2019 [facility] This section is an empty social history section. DoD Plan of Care List of future care activities from Department of Veterans Affairs facilities. Additional future care activities may be listed in the Assessment and Plan section. Date/Time Care Activity Care Activity Detail Facili ty 03/09/2025 [facility]
--- OUTSIDE RECORDS SUMMARY | 2025-03-05 17:19 | XMS_ITS | Continuity of Care Document ---
Author Name [facility] Organization [facility] Care Team Providers Care Fire Official Name Role Phone [facility] Unavailable Unavailable Problems Combined list of problems [...] Condition DoD Acquired hallux valgus Active Condition [facility] Ankle fracture Active Condition Apr Entered By: EHSAN HOUSTON Comment: while in service, right ankleAug 2018 Entered By: EHSAN HOUSTON Comment: osteochondral fracture medial talus, per 06/17 xrayAug 2018 Entered By: EHSAN HOUSTON Comment: osteochondritis dessecans right ankleAug 2018 Entered By: EHSAN HOUSTON Comment: surgery advised. [facility] Ankle pain Active Condition Jul 14 Entered By: OWEN VILLAVICENCIO Comment: right ankle fx. [facility] Bilateral tinnitus Active Condition [facility] Kade Archibald [facility] Chronic pain syndrome Active Condition [facility] Elbow pain Active Condition Jul 14 Entered By: OWEN VILLAVICENCIO Comment: bilateral [facility] Family social history Active Condition Apr 30, 2019 Entered By: EHSAN HOUSTON Comment: father with HTN, no cancerAug 2018 Entered By: EHSAN HOUSTON Comment: no CAD or CVA [facility] H/O: surgery Active Condition Apr 30, 2019 Entered By: EHSAN HOUSTON Comment: deviated septum and revisiong 2018 Entered By: EHSAN HOUSTON Comment: wisdom teeth [facility] Headache ([facility] [id number]) Active Condition [facility] Low Back Pain ([facility] [id number]) Active Condition [facility] Neck injury Active Condition Apr 30, 2019 Entered By: EHSAN HOUSTON Comment: [place] for neck pain [facility] Neck Pain ([facility] [id number]) Active Condition [facility] Scoliosis Active Condition [facility] Social history baseline finding Active Condition Apr 30 9 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 By: 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, 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, -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 Entered By: EHSAN HOUSTON Comment: applied for 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 alf in [place] 2018 Entered By: EHSAN HOUSTON Comment: fit, activeAug 2018 Entered By: EHSAN HOUSTON Comment: non-smokerg 2018 Entered By: EHSAN HOUSTNO Comment: non-drinkerAug 2018 Entered By: EHSAN HOUSTON Comment: live with Mom [facility] Pseudofolliculitis barbae Active Condition [facility] Overweight Active Condition [facility] Body mass index (BMI) 28.0-28.9, adult Active Condition [facility] Diagnosis: ICD-10-CM F43.21 Adjustment disorder with depressed mood Active Diagnosis [facility] Diagnosis: ICD-10-CM Z63.0 Problems in relationship with spouse or partner Active Diagnosis [facility] Diagnosis: ICD-10-CM Z65.3 Problems related to other legal circumstances Active Diagnosis [facility] Diagnosis: ICD-10-CM F32.A Depression, unspecified Active Diagnosis [facility] Diagnosis: ICD-10-CM F33.1 Major depressive disorder, recurrent, moderate Active Diagnosis [facility] Diagnosis: ICD-10-CM F41.1 Generalized anxiety disorder Active Diagnosis [facility] Diagnosis: ICD-10-CM F43.20 Adjustment disorder, unspecified Active Diagnosis . [facility] Diagnosis: ICD-10-CM M25.571 Pain in right ankle and joints of right foot Active Diagnosis . [facility] Allergies, Adverse Reactions, Alerts Combined list of allergies from Department of 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 It does not include entries that were removed or entered in error. Substance Category Reaction Severity Reaction type Status Date Reported Comments Source No Known Allergies Drug allergy (disorder) active 06/08/2016 [facility] [place] Immunizations Combined list of available immunizations from the Department of 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 Immunization Series Date Given Administered By Site Reaction Lot Number CVX Code Drug Bean Dumper Status Comments Source COVID-19 ([employer]), VECTOR-NR, [id number], PF, 0.5 ML 1 2020 212 complet ed HISTORICA L INFORMATI ON - FROM OTHER REGISTRY, [facility] INFLUENZA, SPLIT VIRUS, QUADRIVALENT, PF 1 2017 150 complet ed HISTORICA L INFORMATI ON - FROM OTHER REGISTRY, [facility] Influenza, injectable, quadrivalent, preservative free 1 2017 [id number] 150 Seqirus (SEQ) comple t ed Influenza , injectabl e, quadrival ent, preservat durga free [facility] ANTHRAX, PRE-EXPOSURE PROPHYLAXIS, POST-EXPOSURE PROPHYLAXIS 2017 24 complet ed HISTORICA L INFORMATI ON - FROM OTHER REGISTRY, [facility] TYPHOID, VICPS 2017 101 complet ed HISTORICA L INFORMATI ON - FROM OTHER REGISTRY, [facility] anthrax vaccine 1 2017 [id number] 24 [employer] [place] ([facility]) complet ed anthrax vaccine [facility] typhoid Vi capsular polysaccharid e vaccine 1 2017 [id number] 101 Sanofi Pasteur (PMC) complet ed typhoid Vi capsular polysacch aride vaccine DoD Human Papillomaviru s 9-valent vaccine 1 2017 LELE DOMINGUEZ [id number] 165 Merck (MSD) complet ed Human Papilloma virus 9-valent vaccine DoD Influenza, injectable, quadrivalent, preservative free 1 2016 [id number] 150 Seqirus (SEQ) comple t ed Influenza , injectabl e, quadrival ent, preservat durga free [facility] hepatitis A and hepatitis B vaccine 3 2016 [id number] [employer] (SKB) complet ed hepatitis A and hepatitis B vaccine DoD INFLUENZA, SPLIT VIRUS, QUADRIVALENT, PF 1 2016 150 complet ed HISTORICA L INFORMATI ON - FROM OTHER REGISTRY, [facility] Influenza, seasonal, injectable, preservative free 1 2016 [id number] 140 [facility] [employer], Xendo. (CS) complet ed Influenza , seasonal, injectabl e, preservat durga free DoD HPV9 1 2015 165 complet ed HISTORICA L INFORMATI ON - FROM OTHER REGISTRY, [facility] VARICELLA 2 2015 21 complet ed HISTORICA L INFORMATI ON - FROM OTHER REGISTRY, [facility] varicella virus vaccine 2 2015 [id number] 21 Merck (MSD) complet ed varicella virus vaccine DoD hepatitis A and hepatitis B vaccine 2 2015 [id number] [employer]place[employer] (SKB) complet ed hepatitis A and hepatitis B vaccine DoD ADENOVIRUS TYPES 4 AND 7 2015 143 complet ed HISTORICA L INFORMATI ON - FROM OTHER REGISTRY, [facility] HEP A-HEP B 4 2015 104 complet ed HISTORICA L INFORMATI ON - FROM OTHER REGISTRY, [facility] IPV 5 2015 10 complet ed HISTORICA L INFORMATI ON - FROM OTHER REGISTRY, [facility] MENINGOCOCCAL MCV4P 3 2015 114 complet ed HISTORICA L INFORMATI ON - FROM OTHER REGISTRY, [facility] MMR 3 2015 03 complet ed HISTORICA L INFORMATI ON - FROM OTHER REGISTRY, [facility] TDAP 7 2015 115 complet ed HISTORICA L INFORMATI ON - FROM OTHER REGISTRY, [facility] VARICELLA 1 2015 21 complet ed HISTORICA L INFORMATI ON - FROM OTHER REGISTRY, [facility] measles, mumps and rubella virus vaccine 1 2015 UNK 03 Unknown (UNK) Not Given measles, mumps and rubella virus vaccine [facility] poliovirus vaccine, inactivated 1 2015 [id number] 10 Sanofi Pasteur (PMC) complet ed polioviru s vaccine, inactivat ed DoD varicella virus vaccine 1 2015 [id number] 21 Merck (MSD) complet ed varicella virus vaccine DoD hepatitis A and hepatitis B vaccine 1 2015 [id number] 104 SmithKline (SKB) complet ed hepatitis A and hepatitis B vaccine DoD meningococcal polysaccharid e (groups A, C, Y and W-135) diphtheria toxoid conjugate vaccine (MCV4P) 1 2015 [id number] 114 Sanofi Pasteur (PMC) complet ed meningoco ccal polysacch aride (groups A, C, Y and W-135) diphtheri a toxoid conjugate vaccine (MCV4P) DoD tetanus toxoid, reduced diphtheria toxoid, and acellular pertu is vaccine, adsorbed 1 2015 [id number] 115 [employer] (SKB) complet ed tetanus toxoid, reduced diphtheri a toxoid, and acellular pertussis vaccine, adsorbed DoD Adenovirus, type 4 and type 7, live, oral 1 2015 [id number] 143 [facility] (BR) complet ed Adenoviru s, type 4 and type 7, live, oral DoD MENINGOCOCCAL MCV4P 2 2014 114 complet ed HISTORICA L INFORMATI ON - FROM OTHER REGISTRY, [facility] MENINGOCOCCAL MCV4P 1 2011 114 complet ed HISTORICA L INFORMATI ON - FROM OTHER REGISTRY, [facility] TDAP 6 2011 115 complet ed HISTORICA L INFORMATI ON - FROM OTHER REGISTRY, [facility] NOVEL INFLUENZA-H1N 1-09 1 2008 127 complet ed HISTORICA L INFORMATI ON - FROM OTHER REGISTRY, [facility] DTAP 5 2002 20 complet ed HISTORICA L INFORMATI ON - FROM OTHER REGISTRY, [facility] IPV 4 2002 10 complet ed HISTORICA L INFORMATI ON - FROM OTHER REGISTRY, [facility] MMR 2 2002 03 complet ed HISTORICA L INFORMATI ON - FROM OTHER REGISTRY, [facility] DTAP 4 1999 20 complet ed HISTORICA L INFORMATI ON - FROM OTHER REGISTRY, [facility] HIB, UNSPECIFIED FORMULATION 4 1999 17 complet ed HISTORICA L INFORMATI ON - FROM OTHER REGISTRY, [facility] IPV 3 1999 10 complet ed HISTORICA L INFORMATI ON - FROM OTHER REGISTRY, [facility] MMR 1 1999 03 complet ed HISTORICA L INFORMATI ON - FROM OTHER REGISTRY, [facility] DTAP 3 1997 20 complet ed HISTORICA L INFORMATI ON - FROM OTHER REGISTRY, [facility] HEP B, ADOLESCENT OR PEDIATRIC 3 1997 08 complet ed HISTORICA L INFORMATI ON - FROM OTHER REGISTRY, [facility] HIB-HEP B 3 1997 51 complet ed HISTORICA L INFORMATI ON - FROM OTHER REGISTRY, [facility] DTAP 2 1997 20 complet ed HISTORICA L INFORMATI ON - FROM OTHER REGISTRY, [facility] HIB, UNSPECIFIED FORMULATION 2 1997 17 complet ed HISTORICA L INFORMATI ON - FROM OTHER REGISTRY, [facility] TRIVALENT OPV 2 1997 02 complet ed HISTORICA L INFORMATI ON - FROM OTHER REGISTRY, [facility] DTP-HIB 1 1996 22 complet ed HISTORICA L INFORMATI ON - FROM OTHER REGISTRY, [facility] TRIVALENT OPV 1 1996 02 complet ed HISTORICA L INFORMATI ON - FROM OTHER REGISTRY, [facility] HEP B, ADOLESCENT OR PEDIATRIC 2 1996 08 complet ed HISTORICA L INFORMATI ON - FROM OTHER REGISTRY, [facility] HEP B, ADOLESCENT OR PEDIATRIC 1 1996 08 complet ed HISTORICA L INFORMATI ON - FROM OTHER REGISTRY, [facility] Vital Signs Combined list of inpatient and outpatient Vital Signs from Department of Defense and Veterans Affairs, ranging from 12 months to all on record, depending upon the facility. Vital Sign Value Date Comments Source SYSTOLIC BLOOD PRESSURE 116 03/10/2024 15:07:37 [facility] DIASTOLIC BLOOD PRESSURE 76 03/10/2024 15:07:37 [facility] PULSE OXIMETRY 96 03/10/2024 15:07:37 [facility] WEIGHT 222 03/10/2024 15:07:37 [facility] [...] Disposition Source [facility] ) OUTPATIENT [id number] Notes Entered by: ZABRINA WESTON 07 Jun 2016 1558 ------- ------- ------- ------- -- OST IET KENDRICK WESTON 06/07 Released w/o Limitations [facility] OUTPATIENT [id number] Notes Entered by: JED HERNANDEZ 08 Jun 2016 0846 ------- ------- ------- ------- -- BLOOD JED HERNANDEZ 06/08 Released w/o Limitations [facility]) [facility] OUTPATIENT [id number] Notes Entered by: Luis Daniel MARTIN 08 Jun 2016 1049 ------- ------- ------- ------- -- 95th IET PONCHO MARTIN 06/08 Released w/o Limitations [facility]) [facility]) OUTPATIENT [id number] Notes Entered by: BIRDIE CHAHAL TTE 12 Jun 2016 1023 ------- ------- ------- ------- -- IMM RANCHO SANTILLAN 06/12 Released w/o Limitations [facility] [place]([facility]) [facility] [place] OUTPATIENT [id number] Notes Entered by: James JEFF 30 Jul 2016 1518 ------- ------- ------- ------- -- CONT MELINDA JEAN 07/30 Released w/o Limitations [facility] [place]) [place] Physical Exams/Wel come Ctr) OUTPATIENT [id number] Notes Entered by: Codie DOVER 29 Nov 2016 0846 ------- ------- ------- ------- -- BHA/LETI VIEYRA 11/29 Released w/o Limitations [place] Physica l Exams/[facility]) [place] OUTPATIENT [id number] Pt. states breathi ng concern / Appt per GABBI Moore 01/08 Released w/o Limitations [place] OUTPATIENT [id number] Notes Entered by: Maverick MUNIZ 10 Jan 2017 0838 ------- ------- ------- ------- -- shortne ss of breath, right thigh pain HEMANT IHLL 01/10 Released w/o Limitations [place] [place] OUTPATIENT [id number] S/EYE EXAM ELIANE MEJÍA 01/17 Released w/o Limitations [place] [place] OUTPATIENT [id number] Notes Entered by: Rosa Maria BETANCUR 18 Jan 2017 0851 ------- ------- ------- ------- -- sick call/ shortne ss of breath/ congers nitza/ cough/ headach e/ trouble sleepin HEMANT Naidu 01/18 Released w/o Limitations [place] OUTPATIENT [id number] pt. states f/u on Allergi es GABBI HERRERA 01/18 Released w/o Limitations [place] [id number] LILO FOWLER 02/04 Released w/o Limitations [place] OUT[place]IENT [id number] right knee pain GABBI HERRERA 02/20 Released with Work/Duty Limitations [place] [id number] Notes Entered by: Rosa Maria BETANCUR 04 Mar 2017 0833 ------- ------- ------- ------- -- Triage/ bug bites from the field ANGELA SIMPSON 03/04 Released w/o Limitations [place] [id number] #45PRIC K LILO FOWLER 03/05 Released w/o Limitations [place] [id number] right knee pain GABBI HERRERA KARI 03/11 Released with Work/Duty Limitations [place] [id number] RT KNEE PAIN OWEN WINTERS 03/20 Released with Work/Duty Limitations [place] [id number] Strain of right quadric eps muscle, fascia and tendon, subsequ ent encount POLLO Loaiza 03/28 Released with Work/Duty Limitations [place]) [place] [id number] JEAN-PAUL GUY 03/29 Released w/o Limitations [place] [id number] L knee pain GABBI HERRERA KARI 04/03 Released with Work/Duty Limitations [place] [id number] LAVELLE SAHU 04/10 Released w/o Limitations [place]) [place] [id number] CHUNG ALFORD 04/12 Released w/o Limitations [place]PATIENT [id number] yariele r pain JAVIERGABBI GENAO KARI 04/12 Released w/o Limitations [place] [id number] CHUNG ALFORD 04/15 Released w/o Limitations [place]) [place] [id number] F/U R KNEE POLLO TSANG BONNIE 04/17 Released w/o Limitations [place]) [place] [id number] Deviate d nasal septum CHUNG DU P 04/23 Released w/o Limitations [place] OUTPATIENT [id number] pt. states f/u both knees GABBI HERRERA 04/30 Released with Work/Duty Limitations [place]) [place] [id number] pre op may/ rb s.d. 6 sept CHUNG DU P 05/28 Released w/o Limitations [place] OUTPATIENT [id number] pt. states ct scan results GABBI HERRERA 05/30 Released w/o Limitations [place]) [place] [id number] POST OP, SD WAS JUN 16, POP SPLINTS CHUNG DU P 06/11 Released w/o Limitations [place]PAT[place] [id number] headach GABBI Cardoza KARI 06/19 Released w/o Limitations [place] [id number] hip pain GABBI HERRERA KARI 07/11 Released w/o Limitations [place]PATIENT [id number] f/u nose CHUNG DU P 07/16 Released w/o Limitations [place] [id number] [facility]. [facility] GABBI Cardoza KARI 07/25 Released w/o Limitations [place]) [place] [id number] OverFLAVIA Becker 07/30 Released w/o Limitations [place] [facility] [place]PAT[place] [id number] ANNUAL HEARING TETE DONALD 07/31 Released w/o Limitations [place] [place] [place] [id number] headach GABBI Cardoza KARI 08/16 Released w/o Limitations [place] [id number] xray f/u JAVIER GABBI PIERCE 09/02 Released w/o Limitations [place]) [place] [id number] f/u FLAVIA SYKES 09/02 Released w/o Limitations [place] [id number] SPEC PER FLAVIA GUDINO 09/11 Released w/o Limitations [place] [id number] Pt. states R leg ELIGIO JEAN-PAUL L 09/12 Released with Work/Duty Limitations [place]IENT [id number] cant sleep DIPIKA DEL VALLEANDA L 09/25 Released w/o Limitations [place]) [place] [id number] tendont ititis right knee [facility] 10/02 Released w/o Limitations [place]) [place] [id number] RIGHT KNEE INJECTI ON [facility], [facility] 10/03 Released w/o Limitations [place] [id number] initial COOP, LELE P 10/04 Released w/o Limitations [place] [id number] f/up FLAVIA SYKES 10/10 Released w/o Limitations [place] OUT[place]IENT [id number] pt. states foot soles not wking JAVIER, GABBI KARI 10/10 Released w/o Limitations [place] [id number] F/UP RIGHT KNEE INJECTI ON SHARON SALCEDO 10/17 Released w/o Limitations [place] [id number] Flat foot [pes planus] (acquir ed), unspeci fied foot VESNA AMAN M 10/22 Released w/o Limitations [place]IENT [id number] pt. states f/u GABBI HERRERA 10/28 Released w/o Limitations [place] TELE CONSULT [id number] Notes Entered by: JILLIAN MITCHELL 31 Oct 2017 1345 ------- ------- ------- ------- -- Peer Review for IB JILLIAN MITCHELL 10/31 [place] [id number] F/U per LELE Dickinson Bernadine 11/04 Released w/o Limitations [place] TELE CONSULT [id number] Notes Entered by: Maverick MUNIZ 07 Nov 2017 1036 ------- ------- ------- ------- -- PT WAS TOLD TO CALL FOR MRI RESULTS PT#[phone] GABBI HERRERA 11/07 [place] Sleep Disorder Clinic) OUTPATIENT [id number] Insomni a, unspeci fied, R/O GEENA RE SMALLWOOD 11/13 Released w/o Limitations [place] Sleep Disorde [facility] S01[facility] Blue FP) TELE CONSULT [id number] Notes Entered by: Maverick MUNIZ 19 Nov 2017 1331 ------- ------- ------- ------- -- pt referra l to off post orthope dics was denied pt#[phone] JAVIER GABBI PIERCE 11/19 [place]) [place] [id number] FOLLOW UP [facility] 11/21 Released w/o Limitations [place]IENT [id number] referGABBI Grimes 11/26 Released w/o Limitations [place] [id number] f/up [facility] 12/05 Released w/o Limitations [place]IENT [id number] ringing in ears GABBI HERRERA 12/06 Released w/o Limitations [place] Sleep Disorder Clinic) OUTPATIENT [id number] split night see notes 14feb EMELINA GOMEZ 12/12 Released w/o Limitations [place] Sleep Disorde [facility]PATIENT [id number] f/u nose CHUNG DU P 12/17 Released w/o Limitations [place]IENT [id number] f/u COOPLELE P 12/18 Released w/o Limitations [place]) [place] [id number] TPI for neck pain [facility] SHARON 12/19 Released w/o Limitations [place] OUTPATIENT [id number] GABBI Marti 12/24 Released w/o Limitations [place] Sleep Disorder Clinic) OUTPATIENT [id number] Notes Entered by: Jesi PIERRE 25 Dec 2017 1700 ------- ------- ------- ------- -- PSG Interpr etation SAGAR PIERRE 12/25 Released w/o Limitations [place] Sleep Disorde r Clinic[place]) [place] [id number] FOLLOW UP [facility] SHARON 12/30 Released w/o Limitations [place] [id number] Encount er for screeni ng, unspeci TOMER Hudson 01/03 Released w/o Limitations [place] TELE CONSULT [id number] Notes Entered by: Maverick MUNIZ 06 Jan 2018 1314 ------- ------- ------- ------- -- referra GABBI Duque 01/06 [place] [place] [place] [id number] neck pain/pe r LEONIE Bender 01/10 [place]ased w/o Limitations [place] [place] [id number] ftr LEONIE HORN 01/14 [place]ased w/o Limitations [place] [place] [place] OUTPATIENT [id number] discuss referra anastasia that was denied GABBI HERRERA 01/14 Released w/o Limitations [place] TELE CONSULT [id number] SHARON SALCEDO 01/14 [place] [place]) [place] [id number] FOLLOW UP [facility] UCLASHARON ARAMBULA 01/16 Released w/o Limitations [place] [id number] f/u LELE MCWILLIAMS 01/21 Released w/o Limitations [place]IENT [id number] f/u GABBI HERRERA 01/22 Released w/o [place] Sleep Disorder Clinic) OUTPATIENT [id number] follow up study results EMELINA GOMEZ 01/27 [place]ased [place] Sleep Disorde [facility]) OUTPATIENT [id number] pt. [facility] GABBI [place] 01/28 [place]ased [place] TELE CONSULT [id number] Notes Entered by: Maverick MUNIZ 28 Jan 2018 1338 ------- ------- ------- ------- -- pt request a paper profile since E-rosina mcfadden is down GABBI HERRERA 01/28 [place] [place]) OUTPATIENT [id number] f/u ct scan CHUNG DU 01/30 [place]) [place] [id number] SCOTT Goyal 02/12 [place] [id number] FOOT INSOLES , FOOT PAIN GABBI HERRERA 02/14 [place]PATIENT [id number] ftr HORN , LEONIE 02/17 [place]PATIENT [id number] aqua therapy [facility] 02/18 [place]ased [place]) [place]PATIENT [id number] ftr [facility] 02/19 [place]ased [place] [id number] FOLLOW UP SHARON SALCEDO 02/19 [place] [id number] aqua therapy [facility] 02/20 [place]ased [place]itations [place]) [place] [id number] f/U on nose JAVIERGABBI KARI 03/05 [place]ased [place]itations [place] Physical Exam Clinic) OUTPATIENT [id number] PHA UNDER 40/INS GIVE REF ON LINE SURVEY NOEMI BAPTISTE 03/06 [place]ased [place] Phys[place] l Exam [facility]) [place] [id number] Pain in unspeci fied foot/Bi lateral 40 min LUZ HINOJOSA 03/07 [place]ased [place]IENT [id number] [facility] F/U LELE MCWILLIAMS 03/13 [place]ased w/o Limitations [place]PAT[place] [id number] S/HEARI NG EXAM MAKENNA AGUILERA O 03/18 [place] [place]PATIENT [id number] FOLLOW UP RENAE ORTIZ 03/20 [place]ased w/o Limitations [place] [place] [place] [id number] ELIANE Castellon 03/20 [place]itations [place] [id number] ftr SCOTT REZA 03/28 [place]) [place] [id number] 2 week F/U Bilater LUZ Espinal 03/28 [place] TELE CONSULT [id number] Notes Entered by: ME MAGED MCWILLIAMS P 28 Mar 2018 1813 ------- ------- ------- ------- -- Resched uling appt from 19JUL LELE MCWILLIAMS P 03/28 [place] [place] OUTPATIENT [id number] h3,tinn ,resche [id number]//[phone] SOLANGE GUAJARDO 04/01 [place] [place] [facility] [place]) [place] [id number] S/T HENRY KEYS 04/02 [place]/Qu[place] [id number] ftr SCOTT REZA 04/07 [place] [id number] Segment al and somatic dysfunc tion of lumbar region AMAN MALAGON 04/09 [place] [id number] ftr SCOTT REZA 04/09 [place]itations [place] [id number] ftr SCOTT REZA 04/11 [place]ased [place]itations [place] [id number] ftr SCOTT REZA 04/14 [place] [id number] Pain in left ankle and joints of left foot MICHAEL DENNIS 04/14 [place] [id number] Notes Entered by: Rosa Maria BETANCUR 15 Apr 2018 0748 ------- ------- ------- ------- -- 8:00 walk in Per LELE Dickinson P 04/15 [place]) [place] [id number] SD 21 APRIL CHUNG DU 04/15 [place]itations [place] [id number] ftr SCOTT REZA 04/16 [place] [id number] ftr SCOTT REZA 04/18 [place]ased [place]itations [place] [id number] follow up MICHAEL DENNIS 04/29 [place] [id number] Allergi es/stuf GABBI Soto 05/08 [place]ased w/o Limitations [place] TELE CONSULT [id number] Notes Entered by: MICHAEL DENNIS 13 May 2018 1623 ------- ------- ------- ------- -- Consult MICHAEL DENNIS 05/13 [place] TELE CONSULT [id number] Notes Entered by: GABBI HERRERA 14 May 2018 0835 ------- ------- ------- ------- -- RAD FU GABBI HERRERA 05/14 [place] [id number] f/up AMAN MALAGON 05/14 [place] [id number] f/u LELE MCWILLIAMS 05/19 [place]ased w/o Limitations [place] TELE CONSULT [id number] Notes Entered by: ME MAGED MCWILLIAMS 19 May 2018 1031 ------- ------- ------- ------- -- Sleep aid GABBI HERRERA 05/19 [place]) [place] [id number] New Consult /New Isuue/R ight Foot-se e Consult LUZ HINOJOSA 05/20 [place] [id number] sleep meds GABBI HERRERA 05/20 [place]ased w/o Limitations [place] [id number] follow up MICHAEL DENNIS 05/20 [place]ased [place]itations [place] [id number] ftr SCOTT REZA 05/21 [place] [id number] ftr SCOTT REZA 05/23 [place]itations [place] [id number] f/u back pain GABBI HERRERA 05/23 [place]ased w/o Limitations [place] [id number] ftr SCOTT REZA 05/26 [place]itations [place] [id number] ftr SCOTT REZA 05/28 [place] [id number] F/U per Mrs. Mcwilliams LELE MCWILLIAMS 06/03 [place]ased w/o [place]itations [place] TELE CONSULT [id number] Notes Entered by: ME MAGED MCWILLIAMS 03 Jun 2018 0854 ------- ------- ------- ------- -- Sleep aid not effecti ve GABBI HERRERA 06/03 [place] [id number] meds GABBI HERRERA KARI 06/03 [place]o [place]itations [place] [id number] profile and mri results GABBI HERRERA KARI 06/04 [place]/o [place]itations [place] [place] [facility]) [place] [id number] f/u after MRI LUZ HINOJOSA 06/11 Released with Work/Duty [place] TELE CONSULT [id number] Notes Entered by: Maverick MUNIZ 17 Jun 2018 0949 ------- ------- ------- ------- -- PT REQUEST CALL IN REF TO PROFILE FOR SURGERY JAVIERGABBI GENAO KARI 06/17 [place] [place] [id number] FOLLOW UP ELIAS FARLEY 06/18 [place] [place]) [place] [id number] follow up MICHAEL DENNIS 06/20 [place]itations [place] [id number] wrist/e lbow pain CONRAD WILKES 06/25 [place]itations [place] [facility] [place] TELE CONSULT [id number] Notes Entered by: LOUISE AHUMADA 27 Jun 2018 0921 ------- ------- ------- ------- -- MED REVIEW: POLYPHA RMACY [COHORT 5] SLY BARRY 06/27 Other Not Elsewhere Classified [place] [id number] Notes Entered by: ABRAHAM APONTE 01 Jul 2018 1552 ------- ------- ------- ------- -- Command er Request Speak with You LUZ HINOJOSA 07/01 [place] [id number] f/up for neck and back / Reasses sment from modalit ies SHARON SALCEDO 07/02 [place] [id number] f/U per Mrs. Mcwilliams LELE MCWILLIAMS 07/03 [place]ased w/o Limitations [place] TELE CONSULT [id number] Notes Entered by: ME MAGED MCWILLIAMS P 03 Jul 2018 1024 ------- ------- ------- ------- -- Medicat GABBI Cazares 07/03 [place]) [place] [id number] Post Surgery Concern s (per Mr. Whitt) LUZ HINOJOSA 07/10 [place] [id number] ftr JESICA MASON 07/11 [place] Limitations [place] [place] [id number] per ms coLELE Foy P 07/15 [place]/o Limitations [place] [place] [facility]) [place] [id number] Discuss Surgery / Per ULZ Hall 07/15 [place] [id number] Notes Entered by: Rosa Maria BETANCUR 17 Jul 2018 0944 ------- ------- ------- ------- -- walk in Alpha stem LELE MCWILLIAMS P 07/17 [place]/o Limitations [place] [id number] Notes Entered by: Rosa Maria BETANCUR 18 Jul 2018 0938 ------- ------- ------- ------- -- 10:00/ alpha Stim LELE MCWILLIAMS P 07/18 [place]itations [place] [id number] Notes Entered by: Maverick MUNIZ 21 Jul 2018 1300 ------- ------- ------- ------- -- Alpha Stim LELE MCWILLIAMS P 07/21 [place] Limitations [place] [id number] migrain es GABBI HERRERA 07/21 [place]/o Limitations [place] [id number] f/u r LUZ Ramos 07/22 [place] [id number] FOLLOW UP SHARON SALCEDO 07/23 [place]itations [place] TELE CONSULT [id number] Notes Entered by: Maverick MUNIZ 23 Jul 2018 1100 ------- ------- ------- ------- -- profile concern s GABBI HERRERA 07/23 [place] TELE CONSULT [id number] Notes Entered by: Maverick MUNIZ 25 Jul 2018 1008 ------- ------- ------- ------- -- PT STS HE HAS QUESTIO NS IN REF TO HIS MEB STATUS RAY FRIAS 07/25 [place] [id number] Notes Entered by: Blake YOST 25 Jul 2018 1229 ------- ------- ------- ------- -- [place] Joey [facility] OLIVIER Roberts 07/25 [place]ased [place] Limitations [place] [id number] ftr JESICA MASON 07/25 [place] Limitations [place] [place] [id number] wrist pain/la teral epicond ylitis evaluat e and treat CHUNG CONRAD KARMEN 07/28 [place]ased [place]itations [place] [place] [id number] Notes Entered by: Blake YOST 28 Jul 2018 0949 ------- ------- ------- ------- -- NCM referra l- 13ESC/ ankle pain MEHUL CORDERO 07/28 Released with Work/Duty Limitations [place] [id number] discuss MEB GABBI HERRERA 07/28 [place]ased w/o Limitations [place]PAT[place] [id number] NECK AND BACK/PE R LEONIE TORRES 07/29 [place]itations [place] [id number] Notes Entered by: Maverick MUNIZ 30 Jul 2018 1007 ------- ------- ------- ------- -- Triage- --diarr ANGELA Hart 07/30 [place]itations [place] TELE CONSULT [id number] Notes Entered by: DIANA MASON 30 Jul 2018 1037 ------- ------- ------- ------- -- the patient called stated he was having side effects from the duloxet ine JESICA MASON 07/30 [place] [place]) [place] [id number] DIARRHE LILLIAM AGUILAR 07/30 [place]) [place] [id number] YOGA LEONIE HORN 07/31 [place]itations [place]) [place] [id number] POOL LEONIE HORN 08/05 [place]/o Limitations [place]) [place]PAT[place] [id number] YOGA LEONIE HORN 08/07 [place]ased w/o Limitations [place]) [place] [id number] follow up MICHAEL DENNIS 08/08 [place]ased [place]itations [place] [id number] POOL LEONIE HORN 08/12 [place]/o [place]itations [place] OUTPATIENT [id number] FTR JESICA MASON 08/13 [place]/o Limitations [place] [place] [id number] 2 Pt. states throwin g up/ Migrain e GABBI HERRERA 08/14 [place] at [place]/Qu[place] [id number] YOGA/NE CK PAIN HORN , LEONIE 08/18 [place]itations [place] [id number] 8 POOL/NE CK PAIN HORN , LEONIE 08/19 [place]ased [place]/o [place]itations [place] [id number] re-eval for lat epicond ylitis and wrist pain CONRAD WILKES 08/27 [place]ased [place] Limitations [place] [facility] [place] [id number] 4 POOL/NE CK PAIN HORN , LEONIE 08/28 [place]ased [place]/o [place]itations [place]) [place] [id number] bilat lat epic HELM, JEAN-PAUL K 08/29 [place] Limitations [place] [place] [id number] MEB GABBI HERRERAY 09/01 [place]ased [place]/o Limitations [place] [place] [id number] heel lift AMAN MALAGON 09/04 [place]ased [place] Limitations [place] [id number] POOL/NE CK PAIN [facility] , LEONIE 09/04 [place]ased [place]/o Limitations [place] [id number] 6 bilat lat epic HELM, JEAN-PAUL K 09/05 [place]ased [place]/o Limitations [place] [place]PATIENT [id number] 8 bilat lat epic HELM, JEAN-PAUL K 09/10 [place]ased [place]/o Limitations [place] [place]PATIENT [id number] POOL/NE CK PAIN [facility] , LEONIE 09/11 [place]ased w/o Limitations [place] OUTPATIENT [id number] 2 bilat lat epic HELM, JEAN-PAUL K 09/12 [place]ased w/o Limitations [place] [facility] [place] [id number] FTR/PT. CM Guillermo THERAPY SHARON SALCEDO 09/17 [place]ased [place]/o Limitations [place]) [place] [id number] BILATER AL [place]OW RE-CONRAD GARCIA 10/02 [place]ased w/o Limitations [place] [place] TELE CONSULT [id number] Notes Entered by: DENNIS WEINSTEIN 03 Oct 2018 1214 ------- ------- ------- ------- -- polypha rmacy cohort 6 RACHEL MOSS 10/03 [place] [id number] f/u LELE MCWILLIAMS 10/14 [place] w/o Limitations [place] OUTPATIENT [id number] pt. 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 GABBI HERRERA 01/14 [place]/Qu[place] OUTPATIENT [id number] 2 THROWIN G UP,HEAD ACHES,D IARRHEA ..... GABBI HERRERA 01/21 [place] at [place]/Quarter s [place] [id number] 2 follow up MICHAEL DENNIS 01/30 [place]itations [place] [address] [place] [address])(Bas e Operation al Medicine Clin) OUTPATIENT [id number] Civ pre-emp loyment phy//massey s LAKEISHA Nj 03/16 Released w/o Limitations [address] [place] [address])(B ase Operati onal Medicin e Clin) [address] [place] [address])(Bas e Operation al Medicine Clin) OUTPATIENT [id number] preempl oyment physica l civilia n [phone] reminde d to bring LAKEISHA Nj 03/18 Released w/o Limitations [address] [place] [address])(B ase Operati onal Medicin e Clin) [address] [place] [address])(Bas e Operation al Medicine Clin) OUTPATIENT [id number] preempl oyment physcia l civilia n [phone] LAKEISHA WESLEY 03/22 Released w/o Limitations [address] [place] [address])(B ase Operati onal Medicin e Clin) [address] [place] [address])(Cto tt Flight Medicine Tm) OUTPATIENT [id number] Civ Officer PT RICARDO Menchaca 01/26 Released w/o Limitations [address] [place] [address])(S cott Flight Medicin e Tm) [address] [place] [address])(Laura demic Virus) OUTPATIENT [id number] Notes Entered by: Génesis MITCHELL 30 Mar 2021 1038 ------- ------- ------- ------- -- Travel/ Mil/[facility] 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20 Adjustm ent disorde r, unspeci Codie Longo 08/12 [facility] PSYTX W PT 30 MINUTES [id number] [id number] Diagnos is: ICD-10- CM F41.1 General ized anxiety disorde r Codie BARRY 09/08 [facility] Outpatient Encounter [id number] KASSIDY LAMB 09/11 [facility] PSYTX W PT 30 MINUTES [id number] [id number] Diagnos is: ICD-10- CM F41.1 General ized anxiety disorde r Codie BARRY 09/29 [facility] PSYTX W PT 60 MINUTES 76893-1.65 [id number] Diagnos is: ICD-10- CM F33.1 Major depress durga disorde r, recurre nt, moderat e MATT TRACEY 10/01 [facility] PSYCHOTHER APY [id number] [id number] Diagnos is: ICD-10- CM F32.A Depress ion, unspeci fied CHENTE,SHE LBY L 12/09 [facility] PSYCHOTHER APY [id number] [id number] Diagnos is: ICD-10- CM F32.A Depress ion, unspeci fied CHENTE,SHE LBY L 12/16 [facility] PSYCHOTHER APY [id number] [id number] Diagnos is: ICD-10- CM F43.21 Adjustm ent disorde r with depress ed mood CHENTE,SHE LBY L 12/30 [facility] PSYCHOTHER APY [id number] [id number] Diagnos is: ICD-10- CM F43.21 Adjustm ent disorde r with depress ed mood CHENTE,SHE LBY L 01/06 [facility] PSYCHOTHER APY [id number] [id number] Diagnos is: ICD-10- CM F43.21 Adjustm ent disorde r with depress ed mood CHENTE,SHE LBY L 01/13 [facility] PSYCHOTHER APY [id number] [id number] Diagnos is: ICD-10- CM F43.21 Adjustm ent disorde r with depress ed mood CHENTE,SHE LBY L 01/20 [facility] CASE MANAGEMENT [id number] [id number] Diagnos is: ICD-10- CM Z65.3 Problem s related to other legal circums tances ODALIS ESPARZA 01/[address] [facility] PT EDUCATION NOC INDIVID 06226-5.65 [id number] Diagnos is: ICD-10- CM Z65.3 Problem s related to other legal circums tances ISAIASODALIS WOOD E 01/[address] [facility] Outpatient Encounter [id number] CHENTE,SHE LBY L 01/27 [facility] Outpatient Encounter [id number] 01/28 [facility] Outpatient Encounter [id number] ODALIS ESPARZA 02/01 [facility] PH1 ASSMT&MGMT NQHP 5-10 [id number] Diagnos is: ICD-10- CM Z63.0 Problem s in relatio nship with spouse or partner LEROY ESPINO 02/01 [facility] PSYCHOTHER APY [id number] [id number] Diagnos is: ICD-10- CM F43.21 Adjustm ent disorde r with depress ed mood CHENTE,SHE LBY L 02/03 [facility] PSYCHOTHER APY [id number] Diagnos is: ICD-10- CM F43.21 Adjustm ent disorde r with depress ed mood CHENTE,SHE LBY L 02/10 [facility] PSYCHOTHER APY [id number] Diagnos is: ICD-10- CM F43.21 Adjustm ent disorde r with depress ed mood CHENTE,SHE LBY L 02/17 [facility] PSYCHOTHER APY [id number] Diagnos is: ICD-10- CM F43.21 Adjustm ent disorde r with depress ed mood CHENTE,SHE LBY L 02/24 [facility] PSYCHOTHER APY [id number] Diagnos is: ICD-10- CM F43.21 Adjustm ent disorde r with depress ed mood CHENTE,SHE LBY L 03/03 [facility] Procedures Combined list of: 1) Procedures from Department of [facility] Affairs facilities going back up to thelast 18 months, not all VA non-surgical procedures are included; 2) All procedures from the Department of Defense facilities. Procedure Procedure Type Code Date Perfomer Comments Sourc e Acupunct One Or More Mcrae W/O Stimulation Initial 15 Min Acupunct One Or More Mcrae W/O Stimulation Initial 15 Min 57175 019 LILLIAM WALL [facility] Acupunct One/More Mcrae W/O Stim Addl 15 Min W/ Reinsert Acupunct One/More Mcrae W/O Stim Addl 15 Min W/ Reinsert 28728 019 LILLIAM WALL [facility] Health And Behav A e mt Each 15 Min Pamela e ment Health And Behav Assessmt Each 15 Min Reassessment 98362 019 LELE MCWILLIAMS [facility] Occupational Therapy Re-Evaluation Occupational Therapy Re-Evaluation 82467 019 CONRAD WILKES [facility] Modalities Cryotherapy Cold Packs Modalities Cryotherapy Cold Packs 36366 018 HELM, JEAN-PAUL K 10 MIN FOR ICE MASSAGE. DoD Injection, dexamethasone sodium phosphate, 1 mg 018 HELM, JEAN-PAUL K 1.5 CC DEXAMETHASONE USED DURING [place]. Do[place] Modalities Iontophoresis Modalities Iontophoresis 09396 018 HELM, JEAN-PAUL K 30 MIN FOR CONSTANT VISUAL ATTENDENCE [place]. [facility] Physical Medicine - Group Physical Therapy Se [facility] Physical Medicine - Group Physical Therapy Session 51653 018 LEONIE HORN [facility] Home Furnishings Sales Representative Ed Checkout For Ortho/Prosth Use Estab Patient Home Furnishings Sales Representative Ed Checkout For Ortho/Prosth Use Estab Patient 28972 018 AMAN MALAGON [facility] Social Work Individual Outpatient Counseling 20-30 Minutes Social Work Individual Outpatient Counseling 20-30 Minutes 38400 018 LUCI CISNEROS DoD Modalities Cryotherapy Cold Packs Modalities Cryotherapy Cold Packs 40238 018 HELM, JEAN-PAUL K 10 MIN FOR ICE MASSAGE TO BILATERAL ELBOWS. DoD Injection, dexamethasone sodium phosphate, 1 mg 018 HELM, JEAN-PAUL K 3 TOTAL CC DEXAMETHASONE USED DURING [place]. 1.5 CC USED PER [place] SITE. DoD Modalities Iontophoresis Modalities Iontophoresis 75844 018 HELM, JEAN-PAUL K 30 MIN FOR CONSTANT VISUAL ATTENDENCE [place]. DoD Injection, dexamethasone sodium phosphate, 1 mg 018 HELM, JEAN-PAUL K 3 TOTAL CC DEXAMETHASONE USED DURING [place]. 1.5 CC USED PER [place] SITE. [facility] Modalities Cryotherapy Cold Packs Modalities Cryotherapy Cold Packs 67205 018 HELM, JEAN-PAUL K 10 MIN FOR ICE MASSAGE. [facility] Modalities Iontophoresis Modalities Iontophoresis 92999 018 HELM, JEAN-PAUL K 30 MIN FOR CONSTANT VISUAL ATTENDENCE [place]. [facility] Physical Medicine - Group Physical Therapy Se ion Physical Medicine - Group Physical Therapy Session 14300 018 [facility] Modalities Cryotherapy Cold Packs Modalities Cryotherapy Cold Packs 16428 018 HELM, JEAN-PAUL K ICE MASSAGE PERFORMED DURING EDUCATION. [facility] Patient Counseling Medical Management Individual Patient Patient Counseling Medical Management Individual Patient 69190 018 HELM, JEAN-PAUL K 10 MIN SM EDUCATION. [facility] Injection, dexamethasone sodium phosphate, 1 mg 018 HELM, JEAN-PAUL K 1.5 CC DEXAMETHASONE USED DURING [place]. [facility] Modalities Iontophoresis Modalities Iontophoresis 12067 018 HELM, JEAN-PAUL K 30 MIN FOR CONSTANT VISUAL ATTENDENCE [place]. [facility] Physical Medicine - Group Physical Therapy Se ion Physical Medicine - Group Physical Therapy Session 40391 018 [facility] Modalities Cryotherapy Cold Packs Modalities Cryotherapy Cold Packs 60194 018 CONRAD WILKES [facility] Injection, dexamethasone sodium phosphate, 1 mg 018 CONRAD WILKES [facility] Modalities Iontophoresis Modalities Iontophoresis 80938 018 CONRAD WILKES [facility] Occupational Therapy Re-Evaluation Occupational Therapy Re-Evaluation 23422 018 CONRAD WILKES [facility] Physical Medicine - Group Physical Therapy Se ion Physical Medicine - Group Physical Therapy Session 83376 018 [facility] Physical Medicine - Group Physical Therapy Se ion Physical Medicine - Group Physical Therapy Session 68333 018 [facility] Medication Management By Pharmacist Each Additional 15 Min Medication Management By Pharmacist Each Additional 15 Min 00257 018 JESICA MASON [facility] Med Management By Pharmacist Initial 15 Min Estab Patient Med Management By Pharmacist Initial 15 Min Estab Patient 01057 018 JESICA MASON [facility] Physical Medicine - Group Physical Therapy Se ion Physical Medicine - Group Physical Therapy Session 16187 018 [facility] Physical Medicine - Group Physical Therapy Se ion Physical Medicine - Group Physical Therapy Session 10768 018 [facility] Physical Medicine - Group Physical Therapy Se ion Physical Medicine - Group Physical Therapy Session 75305 018 [facility] Physical Medicine - Group Physical Therapy Se ion Physical Medicine - Group Physical Therapy Session 22965 018 [facility] Physical Medicine - Group Physical Therapy Se ion Physical Medicine - Group Physical Therapy Session 86393 018 [facility] Medication Management By Pharmacist Each Additional 15 Min Medication Management By Pharmacist Each Additional 15 Min 59430 018 JESICA MASON [facility] Med Management By Pharmacist Initial 15 Min Estab Patient Med Management By Pharmacist Initial 15 Min Estab Patient 32744 018 JESICA MASON [facility] Orthopedic Strapping Elbow Orthopedic Strapping Elbow 83539 018 CONRAD WILKES [facility] Occupational Therapy Re-Evaluation Occupational Therapy Re-Evaluation 82900 CONRAD WILKES [facility] Case Management, each 15 minutes 018 OLIVIER YOST [facility] Modalities Electrical Stimulation Unattended Modalities Electrical Stimulation Unattended 32004 COOP, LELE P [facility] Modalities Electrical Stimulation Modalities Electrical Stimulation 67641 018 COOP, LELE P [facility] Health And Behavior Intervention, Each 15 Minutes Individual Health And Behavior Intervention, Each 15 Minutes Individual 29330 018 COOP, LELE P DoD Modalities Electrical Stimulation Unattended Modalities Electrical Stimulation Unattended 15571 018 COOP, LELE P DoD Modalities Electrical Stimulation Modalities Electrical Stimulation 55651 COOP, LELE P DoD Health And Behavior Intervention, Each 15 Minutes Individual Health And Behavior Intervention, Each 15 Minutes Individual 94220 018 COOP, LELE P DoD Modalities Electrical Stimulation Unattended Modalities Electrical Stimulation Unattended 58567 LELE MCWILLIAMS P [facility] Modalities Electrical Stimulation Modalities Electrical Stimulation 30285 LELE MCWILLIAMS P [facility] Health And Behavior Intervention, Each 15 Minutes Individual Health And Behavior Intervention, Each 15 Minutes Individual 94242 LELE MCWILLIAMS P [facility] Psychiatric Therapy Individual Approximately 20-30 Minutes Psychiatric Therapy Individual Approximately 20-30 Minutes 03157 ROSCOEBEN R [facility] Modalities Electrical Stimulation Attended Each 15 Minutes Modalities Electrical Stimulation Attended Each 15 Minutes 68441 LELE MCWILLIAMS P [facility] Modalities Electrical Stimulation Device Placement Modalities Electrical Stimulation Device Placement 35384 LELE MCWILLIAMS P [facility] Modalities Electrical Stimulation Modalities Electrical Stimulation 76042 LELE MCWILLIAMS P [facility] Health And Behav A e mt Each 15 Min Initial A e ment Health And Behav Assessmt Each 15 Min Initial Assessment 54369 NENITAFRANCESCALELE [facility] Medication Management By Pharmacist Each Additional 15 Min Medication Management By Pharmacist Each Additional 15 Min 51977 018 JESICA MASON [facility] Med Management By Pharmacist Initial 15 Min New Patient Med Management By Pharmacist Initial 15 Min New Patient 29839 018 JESICA MASON [facility] Health And Behav A e mt Each 15 Min Filion e ment Health And Behav Assessmt Each 15 Min Reassessment 86911 LELE MCWILLIAMS [facility] Health And Behav A e mt Each 15 Min Filion e ment Health And Behav Assessmt Each 15 Min Reassessment 09544 NENITAFRANCESCA LELE Colindres [facility] Chiropractic Manip Treatmt (CMT) Extraspinal One Or More Reg Chiropractic Manip Treatmt (CMT) Extraspinal One Or More Reg 56035 018 SCOTT REZA [facility] Chiropractic Manip Treatmt (CMT) Spinal Three To Four Region Chiropractic Manip Treatmt (CMT) Spinal Three To Four Region 80076 018 SCOTT REZA [facility] Chiropractic Manip Treatmt (CMT) Extraspinal One Or More Reg Chiropractic Manip Treatmt (CMT) Extraspinal One Or More Reg 25534 018 SCOTT REZA [facility] Chiropractic Manip Treatmt (CMT) Spinal Three To Four Region Chiropractic Manip Treatmt (CMT) Spinal Three To Four Region 72203 018 SCOTT REZA Chiropractic Manip Treatmt (CMT) Extraspinal One Or More Reg Chiropractic Manip Treatmt (CMT) Extraspinal One Or More Reg 67346 018 SCOTT REZA [facility] Chiropractic Manip Treatmt (CMT) Spinal Three To Four Region Chiropractic Manip Treatmt (CMT) Spinal Three To Four Region 21087 018 SCOTT REZA Chiropractic Manip Treatmt (CMT) Extraspinal One Or More Reg Chiropractic Manip Treatmt (CMT) Extraspinal One Or More Reg 24249 018 SCOTT REZA [facility] Chiropractic Manip Treatmt (CMT) Spinal Three To Four Region Chiropractic Manip Treatmt (CMT) Spinal Three To Four Region 31590 018 SCOTT REZA [facility] Health And Behav A e mt Each 15 Min Pamela e ment Health And Behav Assessmt Each 15 Min Reassessment 96372 018 LELE MCWILLIAMS [facility] Home Furnishings Sales Representative Ed Checkout For Ortho/Prosth Use Estab Patient Home Furnishings Sales Representative Ed Checkout For Ortho/Prosth Use Estab Patient 14304 018 AMAN MALAGON [facility] Lift, elevation, heel, per inch 018 AMAN MALAGON 3 Ea. Lifts Left 2 used a firmer crepe [facility] Chiropractic Manip Treatmt (CMT) Extraspinal One Or More Reg Chiropractic Manip Treatmt (CMT) Extraspinal One Or More Reg 13729 018 SCOTT REZA Chiropractic Manip Treatmt (CMT) Spinal Three To Four Region Chiropractic Manip Treatmt (CMT) Spinal Three To Four Region 04105 018 SCOTT REZA [facility] Chiropractic Manip Treatmt (CMT) Spinal Three To Four Region Chiropractic Manip Treatmt (CMT) Spinal Three To Four Region 86977 018 SCOTT REZA Chiropractic Manip Treatmt (CMT) Extraspinal One Or More Reg Chiropractic Manip Treatmt (CMT) Extraspinal One Or More Reg 27604 018 SCOTT REZA Health And Behav A e mt Each 15 Min Pamela e ment Health And Behav Assessmt Each 15 Min Reassessment 46791 018 LELE MCWILLIAMS Chiropractic Manip Treatmt (CMT) Extraspinal One Or More Reg Chiropractic Manip Treatmt (CMT) Extraspinal One Or More Reg 08622 018 SCOTT REZA Chiropractic Manip Treatmt (CMT) Spinal Three To Four Region Chiropractic Manip Treatmt (CMT) Spinal Three To Four Region 16992 018 SCOTT REZA Modalities Electrical Stimulation Modalities Electrical Stimulation 20082 018 SCOTT REZA Chiropractic Manip Treatmt (CMT) Extraspinal One Or More Reg Chiropractic Manip Treatmt (CMT) Extraspinal One Or More Reg 41857 018 SCOTT REZA Chiropractic Manip Treatmt (CMT) Spinal Three To Four Region Chiropractic Manip Treatmt (CMT) Spinal Three To Four Region 51322 018 SCOTT REZA Home Furnishings Sales Representative Educ Orthotics Training Additional 15 Minutes Home Furnishings Sales Representative Educ Orthotics Training Additional 15 Minutes 73815 018 AMAN MALAGON Lift, elevation, heel, per inch 018 AMAN MALAGON 2 Lifts [facility] Physical Therapy Education Orthotics Training Initial 15 Min Physical Therapy Education Orthotics Training Initial 15 Min 40043 018 AMAN MALAGON Chiropractic Manip Treatmt (CMT) Extraspinal One Or More Reg Chiropractic Manip Treatmt (CMT) Extraspinal One Or More Reg 62807 018 SCOTT REZA Chiropractic Manip Treatmt (CMT) Spinal Three To Four Region Chiropractic Manip Treatmt (CMT) Spinal Three To Four Region 19787 018 SCOTT REZA Chiropractic Manip Treatmt (CMT) Extraspinal One Or More Reg Chiropractic Manip Treatmt (CMT) Extraspinal One Or More Reg 60390 018 SCOTT REZA ECG 12-Lead With Interpretation And Report ECG 12-Lead With Interpretation And Report [id number] MIGDALIAKARENAAJAY RICARDO ABISAI Q-waves in leads II, III, and aVF. Asymptomatic, Baseline ECG [facility] Chiropractic Manip Treatmt (CMT) Spinal Three To Four Region Chiropractic Manip Treatmt (CMT) Spinal Three To Four Region [address] Services Special Review / Reporting Of Patient Status Services Special Review / Reporting Of Patient Status 89000 018 SOLANGE GUAJARDO Acoustic Immittance Test Acoustic Immittance Test 91935 018 SOLANGE GUAJARDO Chiropractic Manip Treatmt (CMT) Extraspinal One Or More Reg Chiropractic Manip Treatmt (CMT) Extraspinal One Or More Reg 95535 018 SCOTT REZA Chiropractic Manip Treatmt (CMT) Spinal Three To Four Region Chiropractic Manip Treatmt (CMT) Spinal Three To Four Region 12319 018 SCOTT REZA Ophthalmological Prior Patient Start Comprehensive Care Ophthalmological Prior Patient Start Comprehensive Care 27067 018 ELIANE MEJÍA Determination Of Refractive State Determination Of Refractive State 82926 018 ELIANE MEJÍA Audiometry Group Testing Audiometry Group Testing 94929 018 RENAE ORTIZ [facility] Ear mold/insert, not disposable, any type 018 APARNA OLIVEROSU A [facility] Ear Protector Attenuation Measurements Ear Protector Attenuation Measurements 13531 018 ARLIN, STANLEY A [facility] Audiometry Group Testing Audiometry Group Testing 98948 018 ARLIN, STANLEY A [facility] Health And Behav A e mt Each 15 Min Filion e [facility] Health And Behav Assessmt Each 15 Min Reassessment 28063 018 LELE MCWILLIAMS Screening Test Of Visual Acuity, Quantitative, Bilateral Screening Test Of Visual Acuity, Quantitative, Bilateral 59380 018 NOEMI KIRBY [facility] Venipuncture Venipuncture 89582 018 NOEMI KIRBY [facility] Physical Medicine - Group Physical Therapy Se ion Physical Medicine - Group Physical Therapy Session 83407 018 [facility] Physical Medicine - Group Physical Therapy Se ion Physical Medicine - Group Physical Therapy Session 64463 018 [facility] Physical Medicine - Group Physical Therapy Se ion Physical Medicine - Group Physical Therapy Session 99324 018 [facility] Chiropractic Manip Treatmt (CMT) Extraspinal One Or More Reg Chiropractic Manip Treatmt (CMT) Extraspinal One Or More Reg 20990 018 SCOTT REZA [facility] Chiropractic Manip Treatmt (CMT) Spinal Three To Four Region Chiropractic Manip Treatmt (CMT) Spinal Three To Four Region 75712 018 SCOTT REZA [facility] Health And Behav A e mt Each 15 Min Pamela e ment Health And Behav Assessmt Each 15 Min Reassessment 56044 018 LELE MCWILLIAMS [facility] Physical Medicine - Group Physical Therapy Se ion Physical Medicine - Group Physical Therapy Session 24519 018 [facility] Physical Medicine - Group Physical Therapy Se ion Physical Medicine - Group Physical Therapy Session 91245 018 [facility] Evoked Otoacoustic Keira ions Limited Evoked Otoacoustic Emissions Limited 47194 018 TOMER KUHN [facility] Acoustic Reflex Testing Acoustic Reflex Testing 73655 018 TOMER KUHN [facility] Tympanometry Tympanometry 73411 018 TOMER KUHN [facility] Comprehensive Audiometry Comprehensive Audiometry 23652 018 TOMER KUHN [facility] Injection Of Trigger Point(s) Three Or More Muscle Group(s) Injection Of Trigger Point(s) Three Or More Muscle Group(s) 72539 018 SHARON SALCEDO [facility] Health And Behav A e mt Each 15 Min Pamela e ment Health And Behav Assessmt Each 15 Min Reassessment [address].-Supervised Group Educational Services -Supervised Group Educational Services 28006 018 RE SMALLWOOD [facility] Health And Behavior Intervention, Each 15 Minutes Individual Health And Behavior Intervention, Each 15 Minutes Individual 20737 018 LELE MCWILLIAMS Health And Behav A e mt Each 15 Min Filion e ment Health And Behav Assessmt Each 15 Min Reassessment 44685 018 LELE MCWILLIAMS Psychiatric Evaluation Review of Records and Reports Psychiatric Evaluation Review of Records and Reports 21417 018 JILLIAN MITCHELL [facility] Immunization Administration One Vaccine Immunization Administration One Vaccine 65951 018 GABBI HERRERA [facility] Home Furnishings Sales Representative Educ Orthotics Training Additional 15 Minutes Home Furnishings Sales Representative Educ Orthotics Training Additional 15 Minutes 94398 018 AMAN MALAGON Foot, arch support, removable, premolded, longitudinal, each 018 AMAN MALAGON [facility] Physical Therapy Education Orthotics Training Initial 15 Min Physical Therapy Education Orthotics Training Initial 15 Min 41444 018 AMAN MALAGON Physical Medicine Physical Therapy Re-Evaluation Physical Medicine Physical Therapy Re-Evaluation 62894 018 FLAVIA SYKES Health And Behav A e mt Each 15 Min Initial A e ment Health And Behav Assessmt Each 15 Min Initial Assessment 88075 018 LELE MCWILLIAMS PT A e ment Kinetic Training PT Assessment Kinetic Training 53395 017 FLAVIA SYKES Exercises A isted Exercises For ROM Exercises Assisted Exercises For ROM 90915 017 FLAVIA SYKES Physical Medicine Physical Therapy Re-Evaluation Physical Medicine Physical Therapy Re-Evaluation 29190 017 FLAVIA SYKES Ear Protector Attenuation Measurements Ear Protector Attenuation Measurements 79503 TETE DONALD [facility] Ear mold/insert, not disposable, any type TETE DONALD [facility] Audiometry Group Testing Audiometry Group Testing 54138 017 SHABANA TETEJANNY LARRY [facility] Exercises A isted Exercises For ROM Exercises Assisted Exercises For ROM [address] Supervised Injection Intramuscular Supervised Injection Intramuscular 82395 GABBI HERRERA [facility] Injection, dexamethasone sodium phosphate, 1 mg GABBI HERRERA 8mg IM now to right deltoid; tolerated well. (0.1mg/kg; pt 88kg).. [facility] Nasal Endoscopy (diagnostic) Nasal Endoscopy (diagnostic) 36134 CHUN[address] [facility] Physical Medicine Physical Therapy Re-Evaluation Physical Medicine Physical Therapy Re-Evaluation 22430 VI BAUGH [facility] Mobilization Soft Ti ue Mobilization Soft Tissue 69835 [facility] Physical or manipulative therapy performed for maintenance rather than confucianism VI BAUGH [facility] Physical Therapy: ___ Se ion Segments, 15 Minutes Each Physical Therapy: ___ Session Segments, 15 Minutes Each 33044 017 VI BAUGH [facility] Physical Therapy: ___ Se ion Segments, 15 Minutes Each Physical Therapy: ___ Session Segments, 15 Minutes Each 91790 017 CHUNG ALFORD Physical Therapy: ___ Se ion Segments, 15 Minutes Each Physical Therapy: ___ Session Segments, 15 Minutes Each 88064 017 CHUNG ALFORD Physical Medicine - Group Physical Therapy Se ion Physical Medicine - Group Physical Therapy Session 77938 017 LAVELLE SAHU Physical Therapy: ___ Se ion Segments, 15 Minutes Each Physical Therapy: ___ Session Segments, 15 Minutes Each 40750 017 LAVELLE SAHU Physical Medicine - Group Physical Therapy Se ion Physical Medicine - Group Physical Therapy Session 42651 017 JEAN-PAUL GUY [facility] Physical Therapy: ___ Se ion Segments, 15 Minutes Each Physical Therapy: ___ Session Segments, 15 Minutes Each 99319 017 JEAN-PAUL GUY [facility] Physical Therapy Neuromuscular Re-education Physical Therapy Neuromuscular Re-education 60934 017 POLLO TSANG [facility] Physical Therapy: ___ Se ion Segments, 15 Minutes Each Physical Therapy: ___ Session Segments, 15 Minutes Each 66665 017 POLLO TSANG Allergy Percutaneous tests - allergenic extracts Allergy Percutaneous tests - allergenic extracts 48842 017 LILO FOWLER Ophthalmological New Patient Start Comprehensive Care Ophthalmological New Patient Start Comprehensive Care 18165 017 ELIANE MEJÍA Determination Of Refractive State Determination Of Refractive State 63150 017 ELIANE MEJÍA Hepatitis A And Hepatitis B (Intramuscular Use) Adult Dosage Hepatitis A And Hepatitis B (Intramuscular Use) Adult Dosage 93357 016 MELINDA GREENBERG Vaccines Viral Varicella (Active) Vaccines Viral Varicella (Active) 27243 016 MELINDA GREENBERG Immunization Administration Each Additional Vaccine Immunization Administration Each Additional Vaccine 40624 016 MELINDA GREENBERG Immunization Administration One Vaccine Immunization Administration One Vaccine [address] Supervised Injection Intramuscular Antibiotic Supervised Injection Intramuscular Antibiotic 08499 016 RANCHO MIRELES Vaccines Viral Polio, Inactivated (Salk) Vaccines Viral Polio, Inactivated (Salk) 75411 016 RANCHO MIRELES Meningococcal Polysacch Diphtheria Toxoid Conjugate Vaccine 016 RANCHO MIRELES Vaccines Viral Varicella (Active) Vaccines Viral Varicella (Active) 40692 016 RANCHO MIRELES Hepatitis A And Hepatitis B (Intramuscular Use) Adult Dosage Hepatitis A And Hepatitis B (Intramuscular Use) Adult Dosage 98679 016 RANCHO MIRELES Immunization Admin By Intranasal / Oral Route One Vaccine Immunization Admin By Intranasal / Oral Route One Vaccine 42409 016 RANCHO MIRELES Immunization Admin Intranasal / Oral Each Additional Vaccine Immunization Admin Intranasal / Oral Each Additional Vaccine 21563 016 RANCHO MIRELES Immunization Administration Each Additional Vaccine Immunization Administration Each Additional Vaccine 41535 016 TRYO-RANCHO RUSS [facility] Vaccines Adenovirus Type 4 Live, For Oral Use Vaccines Adenovirus Type 4 Live, For Oral Use 21583 TROY-RANCHO RUSS [facility] Vaccines Adenovirus Type 7 Live, For Oral Use Vaccines Adenovirus Type 7 Live, For Oral Use 24113 RANCHO MIRELES [facility] Tdap Vaccine Seven Years Of Age And Above Tdap Vaccine Seven Years Of Age And Above 21919 TROYRANCHO RUSS [facility] Threshold Audiogram (Pure Tone) Automated Threshold Audiogram (Pure Tone) Automated [id number] PONCHO MARTIN [facility] Ear mold/insert, not disposable, any type PONCHO MARTIN Patient education, not otherwise cla ified, non-physician provider, group, per se ion PONCHO MARTIN [facility] -Supervised Specimen Handling / Transfer: Office To Lab -Supervised Specimen Handling / Transfer: Office To Lab [address] [facility] JED [facility] Venipuncture Venipuncture 55431 [facility] Ophthalmological New Patient [facility] Ophthalmological New Patient [facility] [id number] [address] [facility] HEPATITIS A AND HEPATITIS B VACCINE (HEPA-HEPB), ADULT DOSAGE, FOR INTRAMUSCULAR USE [facility] TETANUS, DIPHTHERIA TOXOIDS AND ACELLULAR PERTUSSIS VACCINE (TDAP), WHEN ADMINISTERED TO INDIVIDUALS 7 YEARS OR OLDER, FOR INTRAMUSCULAR USE [facility] PATIENT EDUCATION, NOT OTHERWISE CLASSIFIED, NON-PHYSICIAN PROVIDER, GROUP, PER SESSION [facility] HANDLING AND/OR CONVEYANCE OF SPECIMEN FOR TRANSFER FROM THE OFFICE TO A LABORATORY [facility] OPHTHALMOLOGICAL SERVICES: MEDICAL EXAMINATION AND EVALUATION WITH INITIATION OF DIAGNOSTIC AND TREATMENT PROGRAM; COMPREHENSIVE, NEW PATIENT, 1 OR MORE VISITS [facility] ADMINISTRATION OF PATIENT-FOCUSED HEALTH RISK ASSESSMENT INSTRUMENT (EG, HEALTH HAZARD APPRAISAL) WITH SCORING AND DOCUMENTATION, PER STANDARDIZED INSTRUMENT [facility] ACUPUNCTURE, 1/MORE NEEDLES; WO ELECTRICAL STIMULATION, EA ADDITIONAL 15 MINUTES, PERSONAL ONE-ON-ONE CONTACT W THE PATIENT, W RE-INSERTION, NEEDLE(S) (LIST SEPARATELY ADDITION CODE, 1 PROCEDURE) [facility] BRIEF EMOTIONAL/BEHAVIORAL ASSESSMENT (EG, DEPRESSION INVENTORY, ATTENTION-DEFICIT/HY PERACTIVITY DISORDER [ADHD] SCALE), WITH SCORING AND DOCUMENTATION, PER STANDARDIZED INSTRUMENT [facility] RE-EVALUATION OF OCCUPATIONAL THERAPY ESTABLISHED PLAN OF CARE,REQ:ASSESS CHANGES IN PAT FUNCT/MED STATUS W REVISED PLAN OF CARE;TYPICALLY, 30 MINUTES ARE SPENT [id number] WITH THE PATIENT &/FAMILY [facility] APPLICATION OF A MODALITY TO 1 OR MORE AREAS; HOT OR COLD PACKS [facility] THERAPEUTIC PROCEDURE(S), GROUP (2 OR MORE INDIVIDUALS) [facility] BRIEF EMOTIONAL/BEHAVIORAL ASSESSMENT (EG, DEPRESSION INVENTORY, ATTENTION-DEFICIT/HY PERACTIVITY DISORDER [ADHD] SCALE), WITH SCORING AND DOCUMENTATION, PER STANDARDIZED INSTRUMENT [facility] APPLICATION OF A MODALITY TO 1 OR MORE AREAS; HOT OR COLD PACKS [facility] APPLICATION OF A MODALITY TO 1 OR MORE AREAS; HOT OR COLD PACKS [facility] THERAPEUTIC PROCEDURE(S), GROUP (2 OR MORE INDIVIDUALS) [facility] ORTHOTIC(S)/PROSTHET IC(S) MANAGEMENT AND/OR TRAINING, UPPER EXTREMITY(IES), LOWER EXTREMITY(IES), AND/OR TRUNK, SUBSEQUENT ORTHOTIC(S)/PROSTHET IC(S) ENCOUNTER, EACH 15 MINUTES APPLICATION OF A MODALITY TO 1 OR MORE AREAS; HOT OR COLD PACKS [facility] THERAPEUTIC PROCEDURE(S), GROUP (2 OR MORE INDIVIDUALS) [facility] APPLICATION OF A MODALITY TO 1 OR MORE AREAS; HOT OR COLD PACKS [facility] THERAPEUTIC PROCEDURE(S), GROUP (2 OR MORE INDIVIDUALS) [facility] THERAPEUTIC PROCEDURE(S), GROUP (2 OR MORE INDIVIDUALS) [facility] MEDICATION THERAPY MGT SERVICE(S) PROVIDED,A PHARMACIST,INDIV,FAC E-TO-FACE W PATIENT,WITH ASSESS & INTERVENE IF PROVIDED;EA ADDITION 15 MINUTES (LIST SEPARATELY IN ADDITION TO CODE FOR PRIM SERVICE) [facility] THERAPEUTIC PROCEDURE(S), GROUP (2 OR MORE INDIVIDUALS) [facility] THERAPEUTIC PROCEDURE(S), GROUP (2 OR MORE INDIVIDUALS) [facility] THERAPEUTIC PROCEDURE(S), GROUP (2 OR MORE INDIVIDUALS) [facility] THERAPEUTIC PROCEDURE(S), GROUP (2 OR MORE INDIVIDUALS) [facility] THERAPEUTIC PROCEDURE(S), GROUP (2 OR MORE INDIVIDUALS) [facility] STRAPPING; ELBOW OR WRIST [facility] MEDICATION THERAPY MGT SERVICE(S) PROVIDED,A PHARMACIST,INDIV,FAC E-TO-FACE W PATIENT,WITH ASSESS & INTERVENE IF PROVIDED;EA ADDITION 15 MINUTES (LIST SEPARATELY IN ADDITION TO CODE FOR PRIM SERVICE) [facility] CASE MANAGEMENT, EACH 15 MINUTES [facility] APPLICATION OF A MODALITY TO 1 OR MORE AREAS; ELECTRICAL STIMULATION (UNATTENDED) [facility] HEALTH AND BEHAVIOR INTERVENTION, EACH 15 MINUTES, EALK-[id number]-[id number]; INDIVIDUAL [facility] BRIEF EMOTIONAL/BEHAVIORAL ASSESSMENT (EG, DEPRESSION INVENTORY, ATTENTION-DEFICIT/HY PERACTIVITY DISORDER [ADHD] SCALE), WITH SCORING AND DOCUMENTATION, PER STANDARDIZED INSTRUMENT [facility] APPLICATION OF A MODALITY TO 1 OR MORE AREAS; ELECTRICAL STIMULATION (UNATTENDED) [facility] APPLICATION OF A MODALITY TO 1 OR MORE AREAS; ELECTRICAL STIMULATION (MANUAL), EACH 15 MINUTES [facility] MEDICATION THERAPY MGT SERVICE(S) PROVIDED,A PHARMACIST,INDTEETEE,FAC E-TO-FACE W PATIENT,WITH ASSESS & INTERVENE IF PROVIDED;EA ADDITION 15 MINUTES (LIST SEPARATELY IN ADDITION TO CODE FOR PRIM SERVICE) [facility] BRIEF EMOTIONAL/BEHAVIORAL ASSESSMENT (EG, DEPRESSION INVENTORY, ATTENTION-DEFICIT/HY PERACTIVITY DISORDER [ADHD] SCALE), WITH SCORING AND DOCUMENTATION, PER STANDARDIZED INSTRUMENT [facility] OCCUPATIONAL THERAPY EVALUATION, MODERATE COMPLEXITY,REQ:OCCUP PROF &MED &THER HIST;ASSESS,3-5 PERF DEF;CLIN DECIS MAKING MOD COMPLEXITY,TYPICALLY ,45 MIN ARE SPENT ESIA-EX-ANAK W THE PATIENT &/FAMILY [facility] BRIEF EMOTIONAL/BEHAVIORAL ASSESSMENT (EG, DEPRESSION INVENTORY, ATTENTION-DEFICIT/HY PERACTIVITY DISORDER [ADHD] SCALE), WITH SCORING AND DOCUMENTATION, PER STANDARDIZED INSTRUMENT [facility] CHIROPRACTIC MANIPULATIVE TREATMENT (CMT); EXTRASPINAL, 1 OR MORE REGIONS [facility] CHIROPRACTIC MANIPULATIVE TREATMENT (CMT); EXTRASPINAL, 1 OR MORE REGIONS [facility] CHIROPRACTIC MANIPULATIVE TREATMENT (CMT); EXTRASPINAL, 1 OR MORE REGIONS [facility] CHIROPRACTIC MANIPULATIVE TREATMENT (CMT); EXTRASPINAL, 1 OR MORE REGIONS [facility] BRIEF EMOTIONAL/BEHAVIORAL ASSESSMENT (EG, DEPRESSION INVENTORY, ATTENTION-DEFICIT/HY PERACTIVITY DISORDER [ADHD] SCALE), WITH SCORING AND DOCUMENTATION, PER STANDARDIZED INSTRUMENT [facility] LIFT, ELEVATION, HEEL, PER INCH [facility] UNLISTED SPECIAL SERVICE, PROCEDURE OR REPORT [facility] CHIROPRACTIC MANIPULATIVE TREATMENT (CMT); EXTRASPINAL, 1 OR MORE REGIONS [facility] CHIROPRACTIC MANIPULATIVE TREATMENT (CMT); EXTRASPINAL, 1 OR MORE REGIONS [facility] BRIEF EMOTIONAL/BEHAVIORAL ASSESSMENT (EG, DEPRESSION INVENTORY, ATTENTION-DEFICIT/HY PERACTIVITY DISORDER [ADHD] SCALE), WITH SCORING AND DOCUMENTATION, PER STANDARDIZED INSTRUMENT [facility] CHIROPRACTIC MANIPULATIVE TREATMENT (CMT); EXTRASPINAL, 1 OR MORE REGIONS [facility] APPLICATION OF A MODALITY TO 1 OR MORE AREAS; ELECTRICAL STIMULATION (MANUAL), EACH 15 MINUTES [facility] CHIROPRACTIC MANIPULATIVE TREATMENT (CMT); EXTRASPINAL, 1 OR MORE REGIONS [facility] LIFT, ELEVATION, HEEL, PER INCH [facility] CHIROPRACTIC MANIPULATIVE TREATMENT (CMT); EXTRASPINAL, 1 OR MORE REGIONS [facility] SPECIAL REPORTS SUCH INSURANCE FORMS, MORE THAN THE INFORMATION CONVEYED IN THE USUAL MEDICAL COMMUNICATIONS OR STANDARD REPORTING FORM [facility] CHIROPRACTIC MANIPULATIVE TREATMENT (CMT); SPINAL, 3-4 REGIONS [facility] DETERMINATION OF REFRACTIVE STATE [facility] AUDIOMETRIC TESTING OF GROUPS [facility] EAR MOLD/INSERT, NOT DISPOSABLE, ANY TYPE [facility] BRIEF EMOTIONAL/BEHAVIORAL ASSESSMENT (EG, DEPRESSION INVENTORY, ATTENTION-DEFICIT/HY PERACTIVITY DISORDER [ADHD] SCALE), WITH SCORING AND DOCUMENTATION, PER STANDARDIZED INSTRUMENT [facility] SCREENING TEST OF VISUAL ACUITY, QUANTITATIVE, BILATERAL [facility] THERAPEUTIC PROCEDURE(S), GROUP (2 OR MORE INDIVIDUALS) [facility] THERAPEUTIC PROCEDURE(S), GROUP (2 OR MORE INDIVIDUALS) [facility] THERAPEUTIC PROCEDURE(S), GROUP (2 OR MORE INDIVIDUALS) [facility] THERAPEUTIC PROCEDURE(S), GROUP (2 OR MORE INDIVIDUALS) [facility] ANTHRAX VACCINE, FOR SUBCUTANEOUS OR INTRAMUSCULAR USE [facility] CHIROPRACTIC MANIPULATIVE TREATMENT (CMT); EXTRASPINAL, 1 OR MORE REGIONS [facility] BRIEF EMOTIONAL/BEHAVIORAL ASSESSMENT (EG, DEPRESSION INVENTORY, ATTENTION-DEFICIT/HY PERACTIVITY DISORDER [ADHD] SCALE), WITH SCORING AND DOCUMENTATION, PER STANDARDIZED INSTRUMENT [facility] THERAPEUTIC PROCEDURE(S), GROUP (2 OR MORE INDIVIDUALS) [facility] THERAPEUTIC PROCEDURE(S), GROUP (2 OR MORE INDIVIDUALS) [facility] DISTORTION PRODUCT EVOKED OTOACOUS EMISSIONS;LIMITED EVALUATION (TO CONFIRM THE PRESENCE/ABSENCE OF HEARING DISORDER,3-6 FREQUENCIES)/TRANSIE NT EVOKED OTOACOUS EMISSIONS,W INTERPRETATION &REPORT [facility] POLYSOMNOGRAPHY; AGE 6 YEARS OR OLDER, SLEEP STAGING WITH 4 OR MORE ADDITIONAL PARAMETERS OF SLEEP, ATTENDED BY A TECHNOLOGIST [facility] INJECTION(S); SINGLE OR MULTIPLE TRIGGER POINT(S), 3 OR MORE MUSCLES [facility] BRIEF EMOTIONAL/BEHAVIORAL ASSESSMENT (EG, DEPRESSION INVENTORY, ATTENTION-DEFICIT/HY PERACTIVITY DISORDER [ADHD] SCALE), WITH SCORING AND DOCUMENTATION, PER STANDARDIZED INSTRUMENT [facility] POLYSOMNOGRAPHY; AGE 6 YEARS OR OLDER, SLEEP STAGING WITH 4 OR MORE ADDITIONAL PARAMETERS OF SLEEP, ATTENDED BY A TECHNOLOGIST [facility] ARTHROCENTESIS, ASPIRATION AND/OR INJECTION, MAJOR JOINT OR BURSA (EG, SHOULDER, HIP, KNEE, SUBACROMIAL BURSA); WITH ULTRASOUND GUIDANCE, WITH PERMANENT RECORDING AND REPORTING [facility] PHYS/OTH QUALIFIED HEALTH CARE PROCESS MANAGER QUALIFIED,EDUCATION, TRAIN,LICENSURE/REGU LATION (WHEN APPLICABLE) EDUC SER RENDERED TO PATS IN A GRP SETTING (EG,,OBESITY ,OR DIABETIC INSTRUCT) [facility] BRIEF EMOTIONAL/BEHAVIORAL ASSESSMENT (EG, DEPRESSION INVENTORY, ATTENTION-DEFICIT/HY PERACTIVITY DISORDER [ADHD] SCALE), WITH SCORING AND DOCUMENTATION, PER STANDARDIZED INSTRUMENT [facility] PSYCHIATRIC EVALUATION OF HOSPITAL RECORDS, OTHER PSYCHIATRIC REPORTS, PSYCHOMETRIC AND/OR PROJECTIVE TESTS, AND OTHER ACCUMULATED DATA FOR MEDICALDIAGNOSTIC PURPOSES [facility] IMMUNIZATION ADMINISTRATION (INCLUDES PERCUTANEOUS, INTRADERMAL, SUBCUTANEOUS, OR INTRAMUSCULAR INJECTIONS); 1 VACCINE (SINGLE OR COMBINATION VACCINE/TOXOID) [facility] ORTHOTIC(S) MANAGEMENT AND TRAINING (INCLUDING ASSESSMENT AND FITTING WHEN NOT OTHERWISE REPORTED),UPPER EXTREMITY(IES),LOWER EXTREMITY(IES) AND/OR TRUNK,INITIAL ORTHOTIC(S) ENCOUNTER,EACH 15 MINUTES [facility] RE-EVAL,PHYSICAL THERAPY EST PLAN OF CARE,REQ:EXAM,REV,HX & USE,STAND TESTS &KAYLA REQ;REV PLAN OF CARE USING STAND PAT ASSESS INSTR &/KAYLA ASSESS FUNC OUTCOME TYP,20 MIN SPENT [id number] W PAT&/FAM [facility] BRIEF EMOTIONAL/BEHAVIORAL ASSESSMENT (EG, DEPRESSION INVENTORY, ATTENTION-DEFICIT/HY PERACTIVITY DISORDER [ADHD] SCALE), WITH SCORING AND DOCUMENTATION, PER STANDARDIZED INSTRUMENT [facility] ARTHROCENTESIS, ASPIRATION AND/OR INJECTION, MAJOR JOINT OR BURSA (EG, SHOULDER, HIP, KNEE, SUBACROMIAL BURSA); WITH ULTRASOUND GUIDANCE, WITH PERMANENT RECORDING AND REPORTING [facility] THERAPEUTIC ACTIVITIES, DIRECT (ONE-ON-ONE) PATIENT CONTACT (USE OF DYNAMIC ACTIVITIES TO IMPROVE FUNCTIONAL PERFORMANCE), EACH 15 MINUTES [facility] THERAPEUTIC PROCEDURE, 1 OR MORE AREAS, EACH 15 MINUTES; THERAPEUTIC EXERCISES TO DEVELOP STRENGTH AND ENDURANCE, RANGE OF MOTION AND FLEXIBILITY [facility] EAR MOLD/INSERT, NOT DISPOSABLE, ANY TYPE [facility] THERAPEUTIC PROCEDURE, 1 OR MORE AREAS, EACH 15 MINUTES; THERAPEUTIC EXERCISES TO DEVELOP STRENGTH AND ENDURANCE, RANGE OF MOTION AND FLEXIBILITY [facility] INJECTION, DEXAMETHASONE SODIUM PHOSPHATE, 1 MG [facility] POSTOPERATIVE FOLLOW-UP VISIT, NORMALLY INCLUDED IN THE SURGICAL PACKAGE, INDICATE THAT EVALUATION & MANAGEMENT SERVICE WAS PERFORMED DURING A POSTOPERATIVE PERIOD REASON RELATED ORIGINAL PROCEDURE [facility] POSTOPERATIVE FOLLOW-UP VISIT, NORMALLY INCLUDED IN THE SURGICAL PACKAGE, INDICATE THAT EVALUATION & MANAGEMENT SERVICE WAS PERFORMED DURING A POSTOPERATIVE PERIOD REASON RELATED ORIGINAL PROCEDURE [facility] UNLISTED SPECIAL SERVICE, PROCEDURE OR REPORT [facility] NASAL ENDOSCOPY, DIAGNOSTIC, UNILATERAL OR BILATERAL (SEPARATE PROCEDURE) [facility] PHYSICAL OR MANIPULATIVE THERAPY PERFORMED FOR MAINTENANCE RATHER THAN HOLINESS [facility] THERAPEUTIC PROCEDURE, 1 OR MORE AREAS, EACH 15 MINUTES; THERAPEUTIC EXERCISES TO DEVELOP STRENGTH AND ENDURANCE, RANGE OF MOTION AND FLEXIBILITY [facility] THERAPEUTIC PROCEDURE, 1 OR MORE AREAS, EACH 15 MINUTES; THERAPEUTIC EXERCISES TO DEVELOP STRENGTH AND ENDURANCE, RANGE OF MOTION AND FLEXIBILITY [facility] THERAPEUTIC PROCEDURE(S), GROUP (2 OR MORE INDIVIDUALS) [facility] THERAPEUTIC PROCEDURE(S), GROUP (2 OR MORE INDIVIDUALS) [facility] THERAPEUTIC PROCEDURE,1 OR MORE AREAS,EACH 15 MINUTES;NEUROMUSCULA R REEDUCATION OF MOVEMENT,BALANCE,RETAIL ACCOUNT SPECIALIST RDINATION,KINESTHETI C SENSE,POSTURE,AND/OR PROPRIOCEPTION FOR SITTING AND/OR STANDING ACTIVITIES [facility] HEPATITIS A AND HEPATITIS B VACCINE (HEPA-HEPB), ADULT DOSAGE, FOR INTRAMUSCULAR USE [facility] PERCUTANEOUS TESTS (SCRATCH, PUNCTURE, PRICK) WITH ALLERGENIC EXTRACTS, IMMEDIATE TYPE REACTION, INCLUDING TEST INTERPRETATION AND REPORT, SPECIFY NUMBER OF TESTS [facility] DETERMINATION OF REFRACTIVE STATE [facility] PSYCHIATRIC DIAGNOSTIC EVALUATION [facility] INFLUENZA VIRUS VACCINE, TRIVALENT (IIV3), SPLIT VIRUS, PRESERVATIVE FREE, 0.5 ML DOSAGE, FOR INTRAMUSCULAR USE [facility] Social History Combined list of available smoking, tobacco, and other social history from Department of 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 Social History Type Response Date Comment Sourc e Tobacco smoking status NHIS VA-TOBACCO NEVER USED 03/10/2024 [facility] History of tobacco use VA-TOBACCO NEVER USED 11/05/2022 [facility] History of tobacco use VA-TOBACCO NEVER USED 07/13/2020 [facility] History of tobacco use VA-TOBACCO NEVER USED 07/07/2019 [facility] History of tobacco use VA-TOBACCO NEVER USED 04/21/2019 [facility] This section is an empty social history section. DoD Plan of Care List of future care activities from Department of Veterans Affairs facilities. Additional future care activities may be listed in the Assessment and Plan section. Date/Time Care Activity Care Activity Detail Facili ty 03/09/2025 [facility] - [facility]
[2025-03-05 17:23] VITALS: BP 140/76; PULSE 66; RESP 18; TEMP 37; O2SAT 100
--- NOTE | 2025-03-05 17:56 | PC.NURSE ---
17:22 Accompanied nurse to room, ocl visibly removed by patient, which he confirmed he did.
--- NOTE | 2025-03-05 17:57 | ED_ITS ---
HPI - Extremity Injury (Lower) General Chief Complaint: Extremity Injury, Lower Stated Complaint: pain in right leg Time Seen by Provider: 03/05/25 17:50 Source: patient, family and RN notes reviewed Mode of arrival: ambulatory Limitations: no limitations History of Present Illness HPI Narrative: 29-year-old male presents Express Care complaining of OCL complication. Patient was last seen here approximately 2 weeks ago was diagnosed with a distal phalanx fracture of his right great toe. Patient was put in a short-leg posterior was told to be nonweightbearing. Patient said over the last couple days he feels like his splint has been bothering the back of his leg. Patient admits he has messed with his splint and is on rapid and rewrapped it a couple different times. Patient denies any pain in his toes or his feet reports having irritation to the back of his leg and side the splint area. Patient denies any numbness or tingling or any other injuries or new injuries to his foot or toe. Patient has yet to see a extension educator and orthopedist. Patient is supposed to see a extension educator on Saturday in 3 days. Splint removed by nursing staff. Related Data Allergies Allergy/AdvReac Type Severity Reaction Status Date / Time No Known Allergies Allergy Verified 02/21/25 11:51 Review of Systems Review of Systems: CONSTITUTIONAL: Denies fever, chills, or sweats. EYES: Denies visual changes, redness, or discharge. ENT: Denies rhinorrhea, congestion, sore throat, or otalgia. CARDIOVASCULAR: Denies chest pain, palpitations, or edema. RESPIRATORY: Denies cough or dyspnea. GASTROINTESTINAL: Denies abdominal pain, nausea, vomiting, or diarrhea. GENITOURINARY: Denies dysuria or hematuria. SKIN: Denies rash, wounds, or itching. MUSCULOSKELETAL: Denies back pain, joint pain, or myalgia. Positive for low right lower leg pain. NEUROLOGIC: Denies headache, numbness, or weakness. PSYCHIATRIC: Denies anxiety or depression. All other systems reviewed are negative, except as documented in HPI. PMFSH Comments At the time of my signature, I reviewed and agree with the nursing past medical, surgical, social, and family history. There is no relevant family history pertinent to the patient complaint. Exam Narrative: GENERAL: This is a well-nourished, well-developed adult, in no apparent distress. They are non ill-appearing, nontoxic appearing. HEAD: normocephalic, atraumatic. EYES: Sclera clear/white. Conjunctiva normal. Vision is grossly intact. Extraocular movements intact EARS: External ears normal, Hearing grossly intact. NOSE: External nose normal THROAT: Mucous membranes moist, NECK: Neck supple CARDIOVASCULAR: Regular rate and rhythm RESPIRATORY: Respiratory rate normal, respiratory effort nonlabored, no respiratory distress SKIN: warm, Dry, intact with no suspicious lesions or rash, good texture and turgor. NEURO: awake, alert, and oriented to person, place and time. There were no obvious focal neurologic abnormalities. EXTREMITIES: Right foot/right lower leg: Splint was removed. No cellulitis, skin breakdown, ulcerations to the posterior part of the right lower leg. There is an ulceration to the plantar surface of the right foot near the right great toe. It is exudative. No surrounding cellulitis, area of fluctuance, or induration. Right foot is swollen. Ecchymosis surrounding the right great toe. Capillary refills less than 3 seconds. Patient is able to wiggle his toes. Normal sensation. Normal dorsiflexion and plantar flexion of right ankle. Right pedal pulse 2 +and palpable. Right foot is cool compared to the left foot. No cyanosis. No tenderness to palpation throughout the right foot/right great toe. Neurovascular status intact to right foot and distal to the right great toe. Course Course Emergency Course: Portions of this record may have been created with voice recognition software Level of Care: Express Care Visit Vital Signs Vital signs: Vital Signs Temperature 98.6 F 03/05/25 17:23 Pulse Rate 66 03/05/25 17:23 Respiratory Rate 18 03/05/25 17:23 Blood Pressure 140/76 03/05/25 17:23 Pulse Oximetry 100 03/05/25 17:23 Oxygen Delivery Room Air 03/05/25 17:23 Temperature 98.6 F 03/05/25 17:23 Pulse Rate 66 03/05/25 17:23 Respiratory Rate 18 03/05/25 17:23 Blood Pressure 140/76 03/05/25 17:23 Pulse Oximetry 100 03/05/25 17:23 Oxygen Delivery Room Air 03/05/25 17:23 Reviewed Procedures Orthopedic Splinting/Casting Injury #1: Splinting/Casting Date: 03/05/25 Splinting/Casting Time: 17:44 Side: right Lower Extremity Injury Location: toe (Right great toe) Lower Extremity Immobilizer: post-op shoe and Bobby wrap Pre-Procedure Neuro Vascular Exam: normal Post-Procedure Neuro Vascular Exam: normal Other Orthopedic Equipment: other (Knee scooter) Additional Comments: Short-leg posterior removed. Postop shoe applied. Non adherent dressing applied to wound, barrier applied in between right great toe and 2nd right little toe MDM - Extremity Injury (Lower) MDM Narrative Medical decision making narrative: Right short-leg posterior removed. Patient's pain significantly improved after removal of splint patient no longer had pain. There was evidence of ulceration/wound to the plantar surface of the right foot in between the right great toe and 2nd little toe. A wound culture was obtained. No evidence of cellulitis. Will treat with infection prevention with cephalexin. Wound was extensively irrigated by nursing staff. And non adherent dressing is applied to the along with a barrier between the right great toe and right 2nd little toe to prevent the toes from sticking to each other. Patient denies any wound present prior to fracture. Neurovascular status intact to foot and right great toe. Patient did admit to messing with his splint after discharge, and on wrapping the splint and really wrapping the Bobby wrap around it. This might have misplaced the splint and caused a pressure injury. Patient has a follow-up with a extension educator on Saturday. Advised close follow-up with Podiatry. No new splint was applied. Patient is given a postop shoe an Bobby wrap. Discussed physical exam findings. Advised supportive measures and signs/symptoms to go to the ER. Pt is appropriate for outpt treatment and f/u. Critical Care Time Critical Care Time Critical Care Time: No Discharge Plan Discharge Clinical Impression: Toe fracture, right Qualifiers: Encounter type: subsequent encounter Toe: great toe Fracture type: closed Phalanx: distal Fracture alignment: nondisplaced Fracture healing: with routine healing Qualified Code(s): S92.424D - Nondisplaced fracture of distal phalanx of right great toe, subsequent encounter for fracture with routine healing Open toe wound Qualifiers: Encounter type: initial encounter Qualified Code(s): S91.109A - Unspecified open wound of unspecified toe(s) without damage to nail, initial encounter Patient Disposition: Home Condition: Stable Instructions: Antibiotic Form, Acute Wounds (DC) Additional Instructions: A culture will be sent off for the wound on the bottom of your right big toe. If the antibiotic is ineffective for the bacteria that grows will be contacted appropriate antibiotic will be prescribed. Rest and elevate the leg; bear weight as tolerated. Wear the postop shoe when you bear weight on your right foot. You may wear an Bobby wrap around her right foot to help with swelling. Keep the leg elevated above the knee to help with swelling Motrin 600mg -800mg every 8 hours, alternate with Tylenol 1000mg every 8 hours as needed Perform icuhk-up-kzthyn exercises to the right foot and ankle to prevent a stiff joint. Wash the wound daily with mild soap and water, keep it covered and dry with a nonstick dressing. Please keep your to toes from sticking to each other and a place a barrier between your big toe 2nd little toe. Follow-up with Podiatry on Saturday as scheduled. Developing worsening pain, swelling, redness, discharge, numbness or tingling, or any other concerns please go to the ER immediately. Patient Language: Arabic Prescriptions: New cephalexin 500 mg capsule 500 mg PO Q6H 7 Days Qty: 28 0RF Follow-up/Referrals: Maurice,Javier [Other] Time of Disposition: 17:56
== END 2025-03-05 18:01 | disposition home or self-care (01) ==
DX: S91.101A Unspecified open wound of right great toe without damage to nail, initial encounter (principal); X58.XXXA Exposure to other specified factors, initial encounter; S92.424D Nondisplaced fracture of distal phalanx of right great toe, subsequent encounter for fracture with routine healing; W22.8XXD Striking against or struck by other objects, subsequent encounter
CPT/HCPCS: 87070; 87075; 87205; 99213; 99214; G0463